=== PATIENT | male | born 1950 | race Caucasian/White ===

== ENCOUNTER 2016-11-01 15:28 | Inpatient (IN) | payer MEDICARE, MEDICAID ==
[2016-11-01] MEDS ORDERED: ACETAMINOPHEN 325 MG TABLET PO ONE (15:32)
--- NOTE | 2016-11-01 15:34 | ER Document Report ---
ED General - General Stated Complaint: ALTERED MENTAL STATUS Mode of Arrival: Ambulatory Information source: Patient Notes: 56-year-old male found walking around altered by EMS. Patient was noted to have fallen at some point. Does note to be febrile confused TRAVEL OUTSIDE OF THE [place] IN LAST 30 DAYS: No - HPI Onset: Just prior to arrival Onset/Duration: Sudden Quality of pain: Achy Severity: Mild Pain Level: 1 Associated symptoms: Body/muscle aches, Fever Exacerbated by: Denies Relieved by: Denies Similar symptoms previously: No Recently seen / treated by doctor: No - Related Data Allergies/Adverse Reactions: No Known Allergies Allergy (Verified 03/18/15 10:06) Home Medications: Current Home Medications Benztropine Mesylate [Cogentin 1 mg Tablet] 1 mg PO QHS 11/01/16 [History] Lisinopril [Zestril] 10 mg PO Q12 11/01/16 [History] Metoprolol Tartrate [Lopressor 25 mg Tablet] 25 mg PO Q12 11/01/16 [History] Mirtazapine [Remeron] 45 mg PO QHS 11/01/16 [History] Olanzapine [Zyprexa] 20 mg PO QHS 11/01/16 [History] Past Medical History - Social History Smoking Status: Current Every Day Smoker Cigarette use (# per day): Yes Chew tobacco use (# tins/day): No Smoking Education Provided: No Family History: Reviewed & Not Pertinent Musculoskeltal Medical History: Reports Hx Arthritis Psychiatric Medical History: Reports: Hx Depression, Hx Schizophrenia - Paranoid schizophrenia Past Surgical History: Reports: Hx Appendectomy, Hx Cholecystectomy - Immunizations Hx Diphtheria, Pertussis, Tetanus Vaccination: No Hx Pneumococcal Vaccination: 06/08/11 Review of Systems - Review of Systems Notes: PHYSICAL EXAMINATION: GENERAL: Febrile altered HEAD: Atraumatic, normocephalic. EYES: Pupils equal round and reactive to light, extraocular movements intact, sclera anicteric, conjunctiva are normal. ENT: Nares patent, oropharynx clear without exudates. Moist mucous membranes. NECK: Normal range of motion, supple without lymphadenopathy LUNGS: Breath sounds clear to auscultation bilaterally and equal. No wheezes rales or rhonchi. HEART: Regular rate and rhythm without murmurs ABDOMEN: Soft, nontender, nondistended abdomen. No guarding, no rebound. No masses appreciated. Musculoskeletal: Normal range of motion, no pitting or edema. No cyanosis. NEUROLOGICAL: GCS 15 but not respond to questions appropriate SKIN: Abrasion above the left eyebrow abrasion to the nasal bridge -: Yes ROS unobtainable due to patient's medical condition Physical Exam - Vital signs Vitals: Temp 100.3 F 11/01/16 15:42 Course - Re-evaluation Re-evalutation: 11/01/16 16:29 Patient noted to have nasal fracture elevated lactic acid 11.8 antibiotics started prophylactically 11/01/16 17:27 pt given 5 L and still not producing urine 11/01/16 19:47 LP result pending, I spoke with Dr. Serna who will admit the patient, he is concerned about neuroleptic malignant syndrome, patient does not appear to be stiff his fever has since resolved, will admit to IMCU for very close monitoring , we considered dantrolene for NMS but Dr Serna wishes to defer at this time 11/01/16 20:14 - Vital Signs Vital signs: Temp Pulse Resp BP Pulse Ox 97.8 F 23 H 134/68 H 98 11/01/16 18:05 11/01/16 20:01 11/01/16 20:00 11/01/16 20:01 - Laboratory Result Diagrams: 11/01/16 15:43 11/01/16 15:43 Laboratory results interpreted by me: 11/01/16 11/01/16 11/01/16 15:43 15:43 15:43 RBC 4.29 L Hgb 12.4 L Hct 37.7 L Basophils % 2.5 H PT 15.6 H VBG pCO2 VBG HCO3 Sodium 146.7 H Chloride 111 H Carbon Dioxide 12 L Anion Gap 24 H Creatinine 1.76 H Est GFR ( Amer) 47 L Est GFR (Non-Af Amer) 39 L Glucose 128 H Lactic Acid ALT 20 L Urine Protein Urine Ketones Urine Blood CSF Total Protein 11/01/16 11/01/16 11/01/16 15:43 16:32 17:51 RBC Hgb Hct Basophils % PT VBG pCO2 32.5 L VBG HCO3 16.4 L Sodium Chloride Carbon Dioxide Anion Gap Creatinine Est GFR ( Amer) Est GFR (Non-Af Amer) Glucose Lactic Acid 11.8 H ALT Urine Protein 30 H Urine Ketones TRACE H Urine Blood MODERATE H CSF Total Protein 11/01/16 18:57 RBC Hgb Hct Basophils % PT VBG pCO2 VBG HCO3 Sodium Chloride Carbon Dioxide Anion Gap Creatinine Est GFR ( Amer) Est GFR (Non-Af Amer) Glucose Lactic Acid ALT Urine Protein Urine Ketones Urine Blood CSF Total Protein 68 H - Diagnostic Test Radiology reviewed: Image reviewed, Reports reviewed - EKG Interpretation by Me EKG shows normal: Sinus rhythm, [place], Intervals, QRS Complexes Procedures - Lumbar Puncture Lumbar puncture Time completed: 18:40 Consent obtained: No - emergent altered febrile Lumbar puncture pre-procedure: Sterile PPE donned, Betadine prep applied, Sterile drapes applied Patient position: Lying Needle size: 18 Lumbar puncture location: L4-L5 Anesthetic type: 1% Lidocaine mL's of anesthetic: 5 Amount/type of drainage: 5 Number of attempts: 1 Complications: No Discharge - Discharge Clinical Impression: Lactic acidosis, Encephalopathy Nasal fracture Qualifiers: Encounter type: initial encounter Fracture type: closed Qualified Code(s): S02.2XXA - Fracture of nasal bones, initial encounter for closed fracture Fever Qualifiers: Fever type: unspecified Qualified Code(s): R50.9 - Fever, unspecified Mental status change Qualifiers: Altered mental status type: transient alteration of awareness Qualified Code(s) : R40.4 - Transient alteration of awareness Condition: Fair Disposition: ADMITTED INPATIENT Admitting Provider: Daphne Unit Admitted: [facility]
[2016-11-01] MEDS: NORMAL SALINE 1000 ML 1,000 ML IV PRN ×5 (15:50→18:08)
[2016-11-01 15:55] LABS: ABSOLUTE BASOPHILS # (AUTO) 0.2 10^3/uL (0.0-0.2); ABSOLUTE EOSINOPHILS # (AUTO) 0.1 10^3/uL (0.0-0.6); ABSOLUTE LYMPHOCYTES (AUTO) 1.5 10^3/uL (0.5-4.7); ABSOLUTE MONOCYTES (AUTO) 0.4 10^3/uL (0.1-1.4); BASOPHILS % (AUTO) 2.5 % (0-2); EOSINOPHILS % (AUTO) 2.2 % (0-6); HEMATOCRIT 37.7 % (37.9-51.0); HEMOGLOBIN 12.4 g/dL (13.5-17.0); HGB HCT DIFFERENCE -0.5; LYMPHOCYTES % (AUTO) 24.6 % (13-45); MEAN CORPUSCULAR HEMOGLOBIN 28.9 pg (27.0-33.4); MEAN CORPUSCULAR HGB CONC 32.9 g/dL (32.0-36.0); MEAN CORPUSCULAR VOLUME 88 fl (80-97); MONOCYTES % (AUTO) 6.1 % (3-13); RED BLOOD COUNT 4.29 10^6/uL (4.35-5.55); RED CELL DISTRIBUTION WIDTH 13.5 % (11.5-14.0); SEGMENTED NEUTROPHILS % (AUTO) 64.6 % (42-78); WHITE BLOOD COUNT 6.3 10^3/uL (4.0-10.5)
--- NOTE | 2016-11-01 15:57 | RADIOLOGY REPORT (SQ) ---
EXAM DESCRIPTION: CHEST SINGLE VIEW COMPLETED DATE/TIME: 11/01/2016 3:45 pm REASON FOR STUDY: bed 9 sepsis protocol COMPARISON: 06/04/2015 EXAM PARAMETERS: NUMBER OF VIEWS: One view. TECHNIQUE: Single frontal radiographic view of the chest acquired. RADIATION DOSE: NA LIMITATIONS: None. FINDINGS: LUNGS AND PLEURA: No opacities, masses or pneumothorax. No pleural effusion. There is hyp erexpansion. MEDIASTINUM AND HILAR STRUCTURES: No masses. Contour normal. HEART AND VASCULAR STRUCTURES: Heart normal in size. Normal vasculature. BONES: No acute findings. HARDWARE: None in the chest. OTHER: No other significant finding. IMPRESSION: Hyperexpansion. No other significant findings. TECHNICAL DOCUMENTATION: JOB ID: [id number]
[2016-11-01 16:07] LABS: PROTHROMBIN TIME 15.6 SEC (11.4-15.4)
[2016-11-01 16:16] LABS: ALANINE AMINOTRANSFERASE 20 U/L (21-72); ALBUMIN 4.3 g/dL (3.5-5.0); ALKALINE PHOSPHATASE 65 U/L (38-126); ASPARTATE AMINO TRANSFERASE 33 U/L (17-59); BILIRUBIN,DIRECT 0.4 mg/dL (0.0-0.4); BILIRUBIN,TOTAL 0.8 mg/dL (0.2-1.3); BLOOD UREA NITROGEN 20 mg/dL (7-20); CALCIUM 9.4 mg/dL (8.4-10.2); CHLORIDE 111 mmol/L (98-107); CREATININE RESULT 1.76 mg/dL (0.52-1.25); GLUCOSE 128 mg/dL (75-110); POTASSIUM 3.8 mmol/L (3.6-5.0); TOTAL PROTEIN 7.6 g/dL (6.3-8.2)
[2016-11-01] MEDS ORDERED: NORMAL SALINE 1000 ML 1,000 ML IV PRN (16:19)
[2016-11-01] MEDS ORDERED: CEFTRIAXONE 1 GM/D5W RTU 50 ML IV ONE (16:19)
--- NOTE | 2016-11-01 16:19 | RADIOLOGY REPORT (SQ) ---
EXAM DESCRIPTION: CT HEAD WITHOUT COMPLETED DATE/TIME: 11/01/2016 4:09 pm REASON FOR STUDY: head injury COMPARISON: 06/04/2015 TECHNIQUE: Axial images acquired through the brain without intravenous contrast. Images reviewed wi th bone, brain and subdural windows. Images stored on PACS. All CT scanners at this facility use dose modulation, iterative reconstruction, and/or weight based d osing when appropriate to reduce radiation dose to as low as reasonably achievable (ALARA). [facility]: Dose Right [facility]: CareDose [facility]: Dose Right [facility]: Teradose 4D [facility]: Smart [facility] RADIATION DOSE: Up-to-date CT equipment and radiation dose reduction techniques were employed. CTDIv ol: 64.6 mGy. DLP: 1034 mGy-cm. mGy. LIMITATIONS: None. FINDINGS: VENTRICLES: Normal size and contour. CEREBRUM: No masses. No hemorrhage. No midline shift. Normal aguilera/white matter differentiation. N o evidence for acute infarction. CEREBELLUM: No masses. No hemorrhage. No alteration of density. No evidence for acute infarction. EXTRAAXIAL SPACES: No fluid collections. No masses. ORBITS AND GLOBE: No intra- or extraconal masses. Normal contour of globe without masses. CALVARIUM: No fracture. PARANASAL SINUSES: No fluid or mucosal thickening. SOFT TISSUES: No mass or hematoma. OTHER: No other significant finding. IMPRESSION: NORMAL BRAIN CT WITHOUT CONTRAST. TECHNICAL DOCUMENTATION: JOB ID: [id number] Quality ID # [id number]: Final reports with documentation of one or more dose reduction techniques (e.g., Au tomated exposure control, adjustment of the mA and/or kV according to patient size, use of iterative reconstruction technique) 2010 [employer]- All Rights Reserved
--- NOTE | 2016-11-01 16:20 | RADIOLOGY REPORT (SQ) ---
EXAM DESCRIPTION: CT CERVICAL SPINE WITHOUT COMPLETED DATE/TIME: 11/01/2016 4:09 pm REASON FOR STUDY: altered COMPARISON: None. TECHNIQUE: Axial images acquired through the cervical spine without intravenous contrast. Images re viewed with lung, soft tissue and bone windows. Reconstructed coronal and sagittal MPR images review ed. Images stored on PACS. All CT scanners at this facility use dose modulation, iterative reconstruction, and/or weight based d osing when appropriate to reduce radiation dose to as low as reasonably achievable (ALARA). [facility]: Dose Right [facility]: CareDose [facility]: Dose Right [facility]: Teradose 4D [facility]: [employer] RADIATION DOSE: Up-to-date CT equipment and radiation dose reduction techniques were employed. CTDIv ol: 18.2 mGy. DLP: 425 mGy-cm. mGy. LIMITATIONS: None. FINDINGS: ALIGNMENT: Anatomic. MINERALIZATION: Normal. VERTEBRAL BODIES: No fractures or dislocation. DISCS: Multilevel disc space narrowing with osteophytes. FACETS, LATERAL MASSES, POSTERIOR ELEMENTS: Facet arthropathy. No fractures. No dislocation. No ac [place] findings. HARDWARE: None in the spine. VISUALIZED RIBS: No fractures. LUNG APICES AND SOFT TISSUES: No significant or acute findings. OTHER: No other significant finding. IMPRESSION: CHRONIC DEGENERATIVE CHANGES. NO ACUTE FINDINGS. TECHNICAL DOCUMENTATION: JOB ID: [id number] Quality ID # [id number]: Final reports with documentation of one or more dose reduction techniques (e.g., Au tomated exposure control, adjustment of the mA and/or kV according to patient size, use of iterative reconstruction technique) 2010 [employer]- All Rights Reserved
--- NOTE | 2016-11-01 16:22 | RADIOLOGY REPORT (SQ) ---
EXAM DESCRIPTION: CT CHEST WITHOUT COMPLETED DATE/TIME: 11/01/2016 4:12 pm REASON FOR STUDY: altered COMPARISON: None. TECHNIQUE: CT scan performed of the chest without intravenous contrast. Images reviewed with lung, soft tissue and bone windows. Reconstructed coronal and sagittal MPR images reviewed. All images st ored on PACS. All CT scanners at this facility use dose modulation, iterative reconstruction, and/or weight based d osing when appropriate to reduce radiation dose to as low as reasonably achievable (ALARA). [facility]: Dose Right [facility]: CareDose [facility]: Dose Right [facility]: Teradose 4D [facility]: Smart [employer] RADIATION DOSE: mGy. LIMITATIONS: No technical limitations. FINDINGS: LUNGS AND PLEURA: Patchy bilateral basilar airspace disease is consistent with atelectasis . No pleural effusions. No pneumothorax. HILAR AND MEDIASTINAL STRUCTURES: There are small AP window lymph nodes. These are nonspecific. The largest measures 1.6 cm in diameter. HEART AND VASCULAR STRUCTURES: No aneurysm. No pericardial effusion. UPPER ABDOMEN: No significant findings. Limited exam. THYROID AND OTHER SOFT TISSUES: No masses. No adenopathy. BONES: No significant finding. HARDWARE: None in the chest. OTHER: No other significant findings. IMPRESSION: Small AP window lymph nodes are present these are nonspecific. No other acute findings in the chest. TECHNICAL DOCUMENTATION: JOB ID: [id number] Quality ID # [id number]: Final reports with documentation of one or more dose reduction techniques (e.g., Au tomated exposure control, adjustment of the mA and/or kV according to patient size, use of iterative reconstruction technique) 2010 [employer]- All Rights Reserved
--- NOTE | 2016-11-01 16:22 | RADIOLOGY REPORT (SQ) ---
EXAM DESCRIPTION: CT FACIAL AREA WITHOUT COMPLETED DATE/TIME: 11/01/2016 4:09 pm REASON FOR STUDY: head injury COMPARISON: None. TECHNIQUE: Noncontrasted images through the facial bones and orbits windowed for bone and soft tissu e. Additional coronal and sagittal reconstructed images reviewed. All images stored on PACS. All CT scanners at this facility use dose modulation, iterative reconstruction, and/or weight based d osing when appropriate to reduce radiation dose to as low as reasonably achievable (ALARA). [facility]: Dose Right [facility]: CareDose [facility]: Dose Right [facility]: Teradose 4D [facility]: [employer] RADIATION DOSE: Up-to-date CT equipment and radiation dose reduction techniques were employed. CTDIv ol: 30.4 mGy. DLP: 540 mGy-cm. mGy. LIMITATIONS: None. FINDINGS: FACIAL BONES: Fracture of the nasal bone with mild angulation to the right. Remainder of the facial bones are intact. ORBITS: Intact. No fracture. Symmetric intact globes and retroorbital soft tissues. PARANASAL SINUSES: Clear. Mild mucous membrane thickening in the right frontal and ethmoid sinuses. Mild nodularity in the left maxillary sinus. Mild nasal septal deviation to the right with spurring on the right side. SOFT TISSUES: No mass or edema. INFERIOR BRAIN: Limited view. No acute findings. OTHER: No other significant finding. IMPRESSION: FRACTURE OF THE NASAL BONE WITH MILD ANGULATION TO THE RIGHT. NO OTHER ACUTE TRAUMATIC FINDINGS. TECHNICAL DOCUMENTATION: JOB ID: [id number] Quality ID # [id number]: Final reports with documentation of one or more dose reduction techniques (e.g., Au tomated exposure control, adjustment of the mA and/or kV according to patient size, use of iterative reconstruction technique) 2010 [employer]- All Rights Reserved
[2016-11-01 16:23] LABS: CARBON DIOXIDE 12 mmol/L (22-30); SODIUM 146.7 mmol/L (137-145)
--- NOTE | 2016-11-01 16:23 | RADIOLOGY REPORT (SQ) ---
EXAM DESCRIPTION: CT ABD/PELVIS NO ORAL OR IV COMPLETED DATE/TIME: 11/01/2016 4:12 pm REASON FOR STUDY: altered COMPARISON: None. TECHNIQUE: CT scan of the abdomen and pelvis performed without intravenous or oral contrast. Images reviewed with lung, soft tissue, and bone windows. Reconstructed coronal and sagittal MPR images revi ewed. All images stored on PACS. All CT scanners at this facility use dose modulation, iterative reconstruction, and/or weight based d osing when appropriate to reduce radiation dose to as low as reasonably achievable (ALARA). [facility]: Dose Right [facility]: CareDose [facility]: Dose Right [facility]: Teradose 4D [facility]: Smart [employer] RADIATION DOSE: Up-to-date CT equipment and radiation dose reduction techniques were employed. CTDIv ol: 6.9 mGy. DLP: 530 mGy-cm.mGy. LIMITATIONS: None. FINDINGS: LOWER CHEST: No significant findings. No nodules or infiltrates. NON-CONTRASTED LIVER, SPLEEN, ADRENALS: Evaluation limited by lack of IV contrast. No identified sign ificant masses. PANCREAS: The pancreas is atrophic. GALLBLADDER: No identified stones by CT criteria. No inflammatory changes to suggest cholecystitis. RIGHT KIDNEY AND URETER: No suspicious masses. Assessment limited by lack of IV contrast. No signif icant calcifications. No hydronephrosis or hydroureter. LEFT KIDNEY AND URETER: No suspicious masses. Assessment limited by lack of IV contrast. No signifi cant calcifications. No hydronephrosis or hydroureter. AORTA AND RETROPERITONEUM: No aneurysm. No retroperitoneal masses or adenopathy. BOWEL AND PERITONEAL CAVITY: No obvious masses or inflammatory changes. No free fluid. APPENDIX: Not visualized. PELVIS, BLADDER, AND ABDOMINAL WALL:No abnormal masses. No free fluid. Bladder normal. BONES: No significant findings. OTHER: No other significant finding. IMPRESSION: NO SIGNIFICANT OR ACUTE PROCESS IN THE ABDOMEN OR PELVIS. TECHNICAL DOCUMENTATION: JOB ID: [id number] Quality ID # [id number]: Final reports with documentation of one or more dose reduction techniques (e.g., Au tomated exposure control, adjustment of the mA and/or kV according to patient size, use of iterative reconstruction technique) 2010 [employer]- All Rights Reserved
[2016-11-01 16:27] LABS: ANION GAP 24 (5-19)
[2016-11-01 16:50] LABS: VENOUS BLOOD BASE EXCESS -8.6 mmol/L; VENOUS BLOOD HCO3 16.4 mmol/L (20-32); VENOUS BLOOD PCO2 32.5 mmHg (35-63); VENOUS BLOOD PH 7.32 (7.30-7.42)
[2016-11-01 18:11] LABS: APPEARANCE,URINE SLIGHTLY-CLOUDY; BILIRUBIN,URINE NEGATIVE (NEGATIVE); GLUCOSE, URINE NEGATIVE (NEGATIVE); KETONES,URINE TRACE mg/dL (NEGATIVE); LEUKOCYTE ESTERASE,URINE NEGATIVE (NEGATIVE); NITRITE,URINE NEGATIVE (NEGATIVE); PROTEIN,URINE 30 mg/dL (NEGATIVE); URINE SPECIFIC GRAVITY 1.012; UROBILINOGEN,URINE NEGATIVE mg/dL (<2.0)
[2016-11-01] MEDS ORDERED: LIDOCAINE 1% INJ-PF (10 MG/ML) 30 ML SDV INJ ONE (18:18)
[2016-11-01] MEDS ORDERED: VANCOMYCIN HCL INJ 1000 MG VIAL IV ONE (18:21)
--- NOTE | 2016-11-01 19:13 | EKG REPORT ---
SEVERITY:- ABNORMAL ECG - SINUS OR ECTOPIC ATRIAL RHYTHM INCOMPLETE LEFT BUNDLE BRANCH BLOCK : Confirmed by: Matthias Alas MD 01-Nov-2016 19:13:24
[2016-11-01 19:37] LABS: GLUCOSE,CSF 64 mg/dL (40-70)
[2016-11-01 19:50] LABS: APPEARANCE ALL TUBES CLEAR; RBC AVERAGE 0.5; RBC DILUENT USED NONE USED; RBC DILUTION FACTOR 1; RBC SIDE 1 0; RBC SIDE 2 1; TOTAL RBC SQUARES COUNTED 225
[2016-11-01 19:51] LABS: WHITE BLOOD CELL,CSF 1 /uL (0-5)
[2016-11-01 19:54] LABS: APPEARANCE ALL TUBES CLEAR; RBC AVERAGE 0.5; RBC DILUENT USED NONE USED; RBC DILUTION FACTOR 1; RBC SIDE 1 0; RBC SIDE 2 1; TOTAL RBC SQUARES COUNTED 225
[2016-11-01 19:55] LABS: WHITE BLOOD CELL,CSF 1 /uL (0-5)
[2016-11-01] MEDS ORDERED: ACETAMINOPHEN 325 MG TABLET PO PRN (23:36)
[2016-11-01] MEDS ORDERED: DOCUSATE SODIUM 100 MG CAPSULE PO PRN (23:37)
[2016-11-02] MEDS ORDERED: LORAZEPAM INJ 2 MG/1 ML VIAL IV ONE ×2 (03:53→04:06)
[2016-11-02] MEDS ORDERED: DIPHENHYDRAMINE HCL 50 MG/ML VIAL IM ONE (04:32)
[2016-11-02] MEDS ORDERED: HALOPERIDOL LACTATE INJ 5 MG/1 ML VIAL IM ONE (04:32)
[2016-11-02] MEDS ORDERED: HALOPERIDOL LACTATE INJ 5 MG/1 ML VIAL IV ONE (04:38)
[2016-11-02] MEDS ORDERED: DIPHENHYDRAMINE HCL 50 MG/ML VIAL IV ONE (04:39)
[2016-11-02 08:09] LABS: HEMATOCRIT 39.1 % (37.9-51.0); HEMOGLOBIN 12.8 g/dL (13.5-17.0); HGB HCT DIFFERENCE -0.7; MEAN CORPUSCULAR HEMOGLOBIN 29.1 pg (27.0-33.4); MEAN CORPUSCULAR HGB CONC 32.6 g/dL (32.0-36.0); MEAN CORPUSCULAR VOLUME 89 fl (80-97); RED BLOOD COUNT 4.39 10^6/uL (4.35-5.55); RED CELL DISTRIBUTION WIDTH 13.7 % (11.5-14.0); WHITE BLOOD COUNT 10.6 10^3/uL (4.0-10.5)
[2016-11-02 08:25] LABS: ALANINE AMINOTRANSFERASE 72 U/L (21-72); ALBUMIN 3.7 g/dL (3.5-5.0); ALKALINE PHOSPHATASE 64 U/L (38-126); ANION GAP 15 (5-19); ASPARTATE AMINO TRANSFERASE 187 U/L (17-59); BILIRUBIN,DIRECT 0.4 mg/dL (0.0-0.4); BLOOD UREA NITROGEN 12 mg/dL (7-20); CALCIUM 8.8 mg/dL (8.4-10.2); CARBON DIOXIDE 16 mmol/L (22-30); CHLORIDE 114 mmol/L (98-107); CREATININE RESULT 1.12 mg/dL (0.52-1.25); GLUCOSE 101 mg/dL (75-110); POTASSIUM 3.8 mmol/L (3.6-5.0); TOTAL PROTEIN 6.6 g/dL (6.3-8.2)
[2016-11-02] MEDS: NORMAL SALINE 1000 ML 1,000 ML IV PRN ×2 (08:40→23:58)
[2016-11-02 09:14] LABS: CREATINE KINASE 10464 U/L (55-170)
[2016-11-02] MEDS: LANSOPRAZOLE 30 MG TAB.RAP.DR PO SCH (09:24)
[2016-11-02] MEDS: ENOXAPARIN SODIUM INJ 30 MG/0.3 ML DISP.SYRIN SUBCUT SCH (09:24)
--- NOTE | 2016-11-02 17:34 | PDOC H&P ---
History of Present Illness Admission Date/PCP: 11/02/16 07:24 CHAD MENDOZA Patient complains of: Pt was picked by EMS in the street as per ER physician as a case of AMS. History of Present Illness: JADA SANCHEZ is a 66 year old male with hx of HTN/Hyperlipidemia/Schizophrenia/ CAD s.p NSTEMI/Vitamin D def/Constipation/Depression, who was picked up wandering in the street as per ER physician for altered mental status and fever. At ER his temperature was 100.3 and had a lactate of 11.8 that decreased to 1.0 within a couple of hours after IV fluids. He has no muscle stiffness or seizures or tremors or headache or nausea/vomiting. Past Medical History Musculoskeltal Medical History: Reports: Arthritis Psychiatric Medical History: Reports: Depression Past Surgical History Past Surgical History: Reports: Appendectomy, Cholecystectomy Social History Smoking Status: Former Smoker Frequency of Alcohol Use: None Hx Recreational Drug Use: Yes Drugs: None Hx Prescription Drug Abuse: No Family History Family History: Reviewed & Not Pertinent Parental Family History Reviewed: Yes Children Family History Reviewed: Yes Sibling(s) Family History Reviewed.: Yes Medication/Allergy Home Medications: Benztropine Mesylate [Cogentin 1 mg Tablet] 1 mg PO QHS 11/01/16 Lisinopril [Zestril] 10 mg PO Q12 11/01/16 Metoprolol Tartrate [Lopressor 25 mg Tablet] 25 mg PO Q12 11/01/16 Mirtazapine [Remeron] 45 mg PO QHS 11/01/16 Olanzapine [Zyprexa] 20 mg PO QHS 11/01/16 Allergies/Adverse Reactions: No Known Allergies Allergy (Verified 03/18/15 10:06) Review of Systems All systems: as per PMH Constitutional: PRESENT: as per HPI Ears: PRESENT: as per HPI Nose, Mouth, and Throat: PRESENT: as per HPI Cardiovascular: PRESENT: as per HPI Respiratory: PRESENT: as per HPI Gastrointestinal: PRESENT: as per HPI Genitourinary: PRESENT: as per HPI Musculoskeletal: PRESENT: as per HPI Integumentary: PRESENT: as per HPI Neurological: PRESENT: as per HPI Psychiatric: PRESENT: as per HPI Endocrine: PRESENT: as per HPI Hematologic/Lymphatic: PRESENT: as per HPI Allergic/Immunologic: PRESENT: as per HPI Physical Exam Vital Signs: Temp Pulse Resp BP Pulse Ox 98.2 F 78 16 153/78 H 99 11/02/16 15:46 11/02/16 15:46 11/02/16 15:46 11/02/16 15:46 11/02/16 15:46 Intake & Output 11/01/16 11/02/16 11/03/16 06:59 06:59 06:59 Intake Total 595 Output Total 500 Balance 95 General appearance: PRESENT: no acute distress, hard of hearing, well-developed , well-nourished Head exam: PRESENT: atraumatic, normocephalic Eye exam: PRESENT: EOMI, PERRLA Ear exam: PRESENT: TM's normal bilaterally Mouth exam: PRESENT: neck supple, tongue midline Neck exam: PRESENT: full ROM Respiratory exam: PRESENT: clear to auscultation esme, symmetrical Cardiovascular exam: PRESENT: +S1, +S2 Pulses: PRESENT: +2 pedal pulses bilateral GI/Abdominal exam: PRESENT: normal bowel sounds, soft Rectal exam: PRESENT: deferred Extremities exam: PRESENT: full ROM Musculoskeletal exam: PRESENT: full ROM Neurological exam: PRESENT: alert, awake, oriented to person Psychiatric exam: PRESENT: anxious Results Laboratory Results: 11/02/16 07:53 11/02/16 07:53 11/02/16 11/02/16 11/02/16 07:53 07:53 07:53 WBC 10.6 H RBC 4.39 Hgb 12.8 L Hct 39.1 MCV 89 MCH 29.1 MCHC 32.6 RDW 13.7 Plt Count 207 Sodium 145.0 Potassium 3.8 Chloride 114 H Carbon Dioxide 16 L Anion Gap 15 BUN 12 Creatinine 1.12 Est GFR ( Amer) > 60 Est GFR (Non-Af Amer) > 60 Glucose 101 Calcium 8.8 Total Bilirubin 1.0 AST 187 H ALT 72 Alkaline Phosphatase 64 Total Protein 6.6 Albumin 3.7 TSH 1.35 11/02/16 07:53 Creatine Kinase 80608 H Impressions: Chest X-Ray 11/01/16 15:32 IMPRESSION: Hyperexpansion. No other significant findings. Abdomen/Pelvis CT 11/01/16 15:33 IMPRESSION: NO SIGNIFICANT OR ACUTE PROCESS IN THE ABDOMEN OR PELVIS. Cervical Spine CT 11/01/16 15:33 IMPRESSION: CHRONIC DEGENERATIVE CHANGES. NO ACUTE FINDINGS. Chest CT 11/01/16 15:33 IMPRESSION: Small AP window lymph nodes are present these are nonspecific. No other acute findings in the chest. Facial Bones CT 11/01/16 15:33 IMPRESSION: FRACTURE OF THE NASAL BONE WITH MILD ANGULATION TO THE RIGHT. NO OTHER ACUTE TRAUMATIC FINDINGS. Head CT 11/01/16 15:33 IMPRESSION: NORMAL BRAIN CT WITHOUT CONTRAST. Assessment & Plan - Diagnosis (1) Rhabdomyolysis Qualifiers: Rhabdomyolysis type: non-traumatic Qualified Code(s): M62.82 - Rhabdomyolysis Is this a current diagnosis for this admission?: YesPlan: Ct with IV fluids normal saline at 75 cc/hr; Monitor CK daily and monitor chemistries daily. Strict input/output chart. (2) Acute kidney injury Is this a current diagnosis for this admission?: YesPlan: Ct with IV fluids normal saline at 75 cc/hr; avoid nephrotoxics; daily weight; strict input/out put chart; monitor chemistries daily. (3) Hypertension Is this a current diagnosis for this admission?: YesPlan: Ct with metoprolol 25 mg BID po; hold Lisinopril 10 mg BID for now. 2 g sodium diet. (4) Hyperlipidemia Is this a current diagnosis for this admission?: YesPlan: Hold Atorvastatin 20 mg qhs for now due to rhabdomyolysis; Ct with 200 mg cholesterol diet. (5) NSTEMI (non-ST elevated myocardial infarction) Is this a current diagnosis for this admission?: YesPlan: Ct with Aspirin 81 mg qd po. (6) Paranoid schizophrenia Is this a current diagnosis for this admission?: YesPlan: Ct with Zyprexa 20 mg qd po; Cogentin 1 mg BID po. (7) Depression Qualifiers: Depression Type: major depressive disorder Is this a current diagnosis for this admission?: YesPlan: Ct with Remeron 30 mg qhs po (8) Constipation Qualifiers: Constipation type: slow transit constipation Qualified Code(s): K59.01 - Slow transit constipation Is this a current diagnosis for this admission?: YesPlan: Ct with Colace 100 mg qd prn po (9) DVT prophylaxis Is this a current diagnosis for this admission?: YesPlan: Ct with Lovenox 40mg qd subcut; SCD - Time Time Spent: 30 to 50 Minutes Smoking Cessation Education: 3 to 10 minutes Medications reviewed and adjusted accordingly: Yes Anticipated discharge: Home Within: within 72 hours - Inpatient Certification Medical Necessity: Significant Comorbidiites Make Outpatient Treatment Too Risky , Need Close Monitoring Due to Risk of Patient Decompensation, Need For IV Fluids, Need For Continuous Telemetry Monitoring, Need for Neurological Checks
[2016-11-02] MEDS ORDERED: LORAZEPAM 0.5 MG TABLET PO PRN (17:35)
[2016-11-02] MEDS: METOPROLOL TARTRATE 25 MG TABLET PO SCH (21:04)
[2016-11-02] MEDS ORDERED: OLANZAPINE 5 MG TAB.RAPDIS PO SCH (22:00)
[2016-11-02] MEDS ORDERED: (PENDING PHARMACY ID) (Mirtazapine [Remeron] 45 MG) PO SCH (22:00)
[2016-11-02] MEDS ORDERED: MIRTAZAPINE 15 MG TABLET PO SCH (22:00)
[2016-11-02] MEDS ORDERED: BENZTROPINE MESYLATE 1 MG TABLET PO SCH (22:00)
[2016-11-03 05:29] LABS: ALANINE AMINOTRANSFERASE 79 U/L (21-72); ALBUMIN 2.8 g/dL (3.5-5.0); ALKALINE PHOSPHATASE 51 U/L (38-126); ANION GAP 10 (5-19); ASPARTATE AMINO TRANSFERASE 143 U/L (17-59); BILIRUBIN,DIRECT 0.3 mg/dL (0.0-0.4); BILIRUBIN,TOTAL 0.6 mg/dL (0.2-1.3); BLOOD UREA NITROGEN 6 mg/dL (7-20); CALCIUM 8.1 mg/dL (8.4-10.2); CARBON DIOXIDE 20 mmol/L (22-30); CHLORIDE 112 mmol/L (98-107); CHOLESTEROL 136.21 mg/dL (0-200); CREATININE RESULT 0.96 mg/dL (0.52-1.25); Direct HDL 27 mg/dL (>40); GLUCOSE 78 mg/dL (75-110); POTASSIUM 3.5 mmol/L (3.6-5.0); SODIUM 141.6 mmol/L (137-145); TOTAL PROTEIN 5.4 g/dL (6.3-8.2); TRIGLYCERIDES 73 mg/dL (<150)
[2016-11-03 05:41] LABS: DIRECT LDL 94 mg/dL (<100)
[2016-11-03 05:50] LABS: VLDL CHOLESTEROL 14.6 mg/dL (10-31)
[2016-11-03 06:00] LABS: CREATINE KINASE 4627 U/L (55-170)
[2016-11-03 06:55] LABS: ABSOLUTE BASOPHILS # (AUTO) 0.1 10^3/uL (0.0-0.2); ABSOLUTE EOSINOPHILS # (AUTO) 0.3 10^3/uL (0.0-0.6); ABSOLUTE MONOCYTES (AUTO) 0.5 10^3/uL (0.1-1.4); ABSOLUTE NEUT (AUTO) 4.2 10^3/uL (1.7-8.2); BASOPHILS % (AUTO) 1.4 % (0-2); HEMATOCRIT 32.9 % (37.9-51.0); HGB HCT DIFFERENCE 0.1; LYMPHOCYTES % (AUTO) 28.2 % (13-45); MEAN CORPUSCULAR HEMOGLOBIN 29.2 pg (27.0-33.4); MEAN CORPUSCULAR HGB CONC 33.5 g/dL (32.0-36.0); MEAN CORPUSCULAR VOLUME 87 fl (80-97); RED BLOOD COUNT 3.77 10^6/uL (4.35-5.55); RED CELL DISTRIBUTION WIDTH 13.8 % (11.5-14.0); SEGMENTED NEUTROPHILS % (AUTO) 59.4 % (42-78); WHITE BLOOD COUNT 7.2 10^3/uL (4.0-10.5)
[2016-11-03] MEDS ORDERED: POTASSIUM CHLORIDE 20 MEQ/15 ML UDCUP PO ONE (09:01)
[2016-11-03] MEDS: METOPROLOL TARTRATE 25 MG TABLET PO SCH (11:00)
[2016-11-03] MEDS: LANSOPRAZOLE 30 MG TAB.RAP.DR PO SCH (11:00)
[2016-11-03] MEDS: ENOXAPARIN SODIUM INJ 30 MG/0.3 ML DISP.SYRIN SUBCUT SCH (11:01)
--- NOTE | 2016-11-03 11:29 | PDOC DISCHARGE SUMMARY ---
General - Admit/Disc Date/PCP Admission Date/Primary Care Provider: 11/02/16 07:24 CHAD MENDOZA Discharge Date: 11/03/16 - Discharge Diagnosis (1) Rhabdomyolysis Is this a current diagnosis for this admission?: Yes (2) Acute kidney injury Is this a current diagnosis for this admission?: Yes (3) Hypertension Is this a current diagnosis for this admission?: Yes (4) Hyperlipidemia Is this a current diagnosis for this admission?: Yes (5) NSTEMI (non-ST elevated myocardial infarction) Is this a current diagnosis for this admission?: Yes (6) Paranoid schizophrenia Is this a current diagnosis for this admission?: Yes (7) Depression Is this a current diagnosis for this admission?: Yes (8) Constipation Is this a current diagnosis for this admission?: Yes (9) DVT prophylaxis Is this a current diagnosis for this admission?: Yes - Additional Information Discharge Activity: Activity As Tolerated Home Medications: Benztropine Mesylate [Cogentin 1 mg Tablet] 1 mg PO QHS 11/01/16 Lisinopril [Zestril] 10 mg PO Q12 11/01/16 Metoprolol Tartrate [Lopressor 25 mg Tablet] 25 mg PO Q12 11/01/16 Mirtazapine [Remeron] 45 mg PO QHS 11/01/16 Olanzapine [Zyprexa] 20 mg PO QHS 11/01/16 History of Present Illness History of Present Illness: JADA SANCHEZ is a 66 year old male with hx of HTN/Hyperlipidemia/Schizophrenia/ CAD s.p NSTEMI/Vitamin D def/Constipation/Depression, who was picked up wandering in the street as per ER physician for altered mental status and fever. At ER his temperature was 100.3 and had a lactate of 11.8 that decreased to 1.0 within a couple of hours after IV fluids. He has no muscle stiffness or seizures or tremors or headache or nausea/vomiting. Hospital Course Hospital Course: 66 yr old man admitted to [facility] for rhabdomyolysis and acute kidney injury. He had 5 litres bolus of normal saline and later IV fluids normal saline at 75 cc/ hr. He is well hydrated and his kidney function is back to normal and CK has decreased and he is stable and back to to his baseline. He and his step daughter ,Ms Melissa Godinez were counseled to ensure he drinks a lot of fluids.He will be discharged home today and follow up with his PCP in 1 week for transition of care. Physical Exam Vital Signs: Temp Pulse Resp BP Pulse Ox 98.5 F 64 16 154/81 H 96 11/03/16 07:19 11/03/16 07:19 11/03/16 07:19 11/03/16 07:19 11/03/16 07:19 Intake & Output 11/02/16 11/03/16 11/04/16 06:59 06:59 06:59 Intake Total 2835 Output Total 2300 Balance 535 Weight 71.8 kg General appearance: PRESENT: no acute distress, well-developed, well-nourished Head exam: PRESENT: atraumatic, normocephalic Eye exam: PRESENT: EOMI, PERRLA Ear exam: PRESENT: normal external ear exam, TM's normal bilaterally Mouth exam: PRESENT: moist, neck supple, tongue midline Neck exam: PRESENT: full ROM Respiratory exam: PRESENT: clear to auscultation esme, symmetrical Cardiovascular exam: PRESENT: +S1, +S2 Pulses: PRESENT: +2 pedal pulses bilateral GI/Abdominal exam: PRESENT: normal bowel sounds, soft Rectal exam: PRESENT: deferred Extremities exam: PRESENT: full ROM Musculoskeletal exam: PRESENT: full ROM Neurological exam: PRESENT: alert, oriented to person Psychiatric exam: PRESENT: normal mood Results Laboratory Results: 11/03/16 04:12 11/03/16 04:12 11/03/16 11/03/16 04:12 04:12 WBC 7.2 RBC 3.77 L Hgb 11.0 L Hct 32.9 L MCV 87 MCH 29.2 MCHC 33.5 RDW 13.8 Plt Count 176 Seg Neutrophils % 59.4 Lymphocytes % 28.2 Monocytes % 7.0 Eosinophils % 4.0 Basophils % 1.4 Absolute Neutrophils 4.2 Absolute Lymphocytes 2.0 Absolute Monocytes 0.5 Absolute Eosinophils 0.3 Absolute Basophils 0.1 Sodium 141.6 Potassium 3.5 L Chloride 112 H Carbon Dioxide 20 L Anion Gap 10 BUN 6 L Creatinine 0.96 Est GFR ( Amer) > 60 Est GFR (Non-Af Amer) > 60 Glucose 78 Calcium 8.1 L Total Bilirubin 0.6 AST 143 H ALT 79 H Alkaline Phosphatase 51 Total Protein 5.4 L Albumin 2.8 L Triglycerides 73 Cholesterol 136.21 LDL Cholesterol Direct 94 VLDL Cholesterol 14.6 HDL Cholesterol 27 L 11/02/16 11/03/16 07:53 04:12 Creatine Kinase 03235 H 4627 H Impressions: Chest X-Ray 11/01/16 15:32 IMPRESSION: Hyperexpansion. No other significant findings. Abdomen/Pelvis CT 11/01/16 15:33 IMPRESSION: NO SIGNIFICANT OR ACUTE PROCESS IN THE ABDOMEN OR PELVIS. Cervical Spine CT 11/01/16 15:33 IMPRESSION: CHRONIC DEGENERATIVE CHANGES. NO ACUTE FINDINGS. Chest CT 11/01/16 15:33 IMPRESSION: Small AP window lymph nodes are present these are nonspecific. No other acute findings in the chest. Facial Bones CT 11/01/16 15:33 IMPRESSION: FRACTURE OF THE NASAL BONE WITH MILD ANGULATION TO THE RIGHT. NO OTHER ACUTE TRAUMATIC FINDINGS. Head CT 11/01/16 15:33 IMPRESSION: NORMAL BRAIN CT WITHOUT CONTRAST.
[2016-11-03 11:47] VITALS: BP 142/62
== END 2016-11-03 12:10 | disposition home or self-care (01) | DRG 557 ==
LOC: ER 15:28 → UNDOADMIN 20:33 → EH 20:33 → 3N 11-02 06:53 → EH 11-02 06:53 → 3N 11-02 07:24
PROVIDERS: ADMIT Internal Medicine; ATTEND Internal Medicine
PROC: 009U3ZX Drainage of Spinal Canal, Percutaneous Approach, Diagnostic (ICD-10-PCS; principal; 2016-11-02)
DX: M62.82 Rhabdomyolysis (principal); G93.40 Encephalopathy, unspecified; N17.9 Acute kidney failure, unspecified; F20.0 Paranoid schizophrenia; E87.2 Acidosis; K95.01 Infection due to gastric band procedure; S00.81XA Abrasion of other part of head, initial encounter; S02.2XXA Fracture of nasal bones, initial encounter for closed fracture; I10 Essential (primary) hypertension; E78.5 Hyperlipidemia, unspecified; I25.10 Atherosclerotic heart disease of native coronary artery without angina pectoris; F32.9 Major depressive disorder, single episode, unspecified; R41.82 Altered mental status, unspecified; M19.90 Unspecified osteoarthritis, unspecified site; F17.210 Nicotine dependence, cigarettes, uncomplicated; W19.XXXA Unspecified fall, initial encounter; Y93.9 Activity, unspecified; Y92.9 Unspecified place or not applicable; I25.2 Old myocardial infarction; Z78.1 Physical restraint status
CPT/HCPCS: 36415; 70450; 70486; 71010; 71250; 72125; 74176; 80053; 80061; 81001; 82550; 82803; 82945; 82962; 83605; 84157; 84443; 85025; 85027; 85610; 87040; 87070; 87086; 87205; 89050; 93005; 93010; 96361; 96365; 96366; 96367; 99285; J0696; J1200; J1630; J1650; J2060; J3370; J3490; J7030

== ENCOUNTER 2018-04-16 18:24 | Emergency (ER) | payer MEDICARE, MEDICAID ==
--- NOTE | 2018-04-16 18:58 | ER Document Report ---
ED Medical Screen (RME) - General Chief Complaint: Altered Mental Status Stated Complaint: ALTERED MENTAL STATUS Time Seen by Provider: 04/16/18 18:47 TRAVEL OUTSIDE OF THE [place] IN LAST 30 DAYS: No - Related Data Allergies/Adverse Reactions: No Known Allergies Allergy (Verified 04/16/18 18:25) Past Medical History Renal/ Medical History: Denies: Hx Peritoneal Dialysis Musculoskeltal Medical History: Reports Hx Arthritis Psychiatric Medical History: Reports: Hx Depression, Hx Schizophrenia - Paranoid schizophrenia Past Surgical History: Reports: Hx Appendectomy, Hx Cholecystectomy - Immunizations Hx Diphtheria, Pertussis, Tetanus Vaccination: No Physical Exam - Vital signs Vitals: Temp Pulse Resp BP Pulse Ox 99.5 F 56 L 20 135/92 H 97 04/16/18 18:37 04/16/18 18:37 04/16/18 18:37 04/16/18 18:37 04/16/18 18:37 Course - Re-evaluation Re-evalutation: 67-year-old man with cognitive disease and paranoia who presents from home for worsening paranoid delusions. He had previously been followed by Dr. Rock who then retired making it difficult for them to obtain his normal medications. He has been receiving olanzapine 10 mg every morning and 20 mg every afternoon but is continued to have worsening altered mental status thereafter with what appears to be a paranoia related specifically to those he lives with believing that they have killed many many people are attempting to poison him and may be attempting to kill all of the Jehovah's Witnesses and place them into dumpsters in the back. He demonstrates diminished insight. Because of my concern for this gentleman's inability to understand things believe he would benefit from evaluation and possible disposition determination. I will plan for this patient undergo further investigation evaluation by secondary provider, the the appropriate diagnostics, disposition and workup will be deferred to that provider. I have performed a rapid screening examination and they will require further evaluation. - Vital Signs Vital signs: Temp Pulse Resp BP Pulse Ox 99.5 F 56 L 20 135/92 H 97 04/16/18 18:37 04/16/18 18:37 04/16/18 18:37 04/16/18 18:37 04/16/18 18:37 Doctor's Discharge - Discharge Referrals: CHAD MENDOZA MD [Primary Care Provider] - Follow up as needed
[2018-04-16 19:59] LABS: ABSOLUTE BASOPHILS # (AUTO) 0.1 10^3/uL (0.0-0.2); ABSOLUTE EOSINOPHILS # (AUTO) 0.2 10^3/uL (0.0-0.6); ABSOLUTE MONOCYTES (AUTO) 0.9 10^3/uL (0.1-1.4); BASOPHILS % (AUTO) 0.6 % (0-2); EOSINOPHILS % (AUTO) 1.8 % (0-6); HEMATOCRIT 44.7 % (37.9-51.0); HEMOGLOBIN 14.8 g/dL (13.5-17.0); LYMPHOCYTES % (AUTO) 16.4 % (13-45); MEAN CORPUSCULAR HEMOGLOBIN 29.5 pg (27.0-33.4); MEAN CORPUSCULAR HGB CONC 33.2 g/dL (32.0-36.0); MEAN CORPUSCULAR VOLUME 89 fl (80-97); MONOCYTES % (AUTO) 7.1 % (3-13); PLATELET COUNT 251 10^3/uL (150-450); RED BLOOD COUNT 5.03 10^6/uL (4.35-5.55); RED CELL DISTRIBUTION WIDTH 13.7 % (11.5-14.0); SEGMENTED NEUTROPHILS % (AUTO) 74.1 % (42-78); TOTAL CELLS COUNTED % (AUTO) 100 %; WHITE BLOOD COUNT 12.1 10^3/uL (4.0-10.5)
--- NOTE | 2018-04-16 20:03 | RADIOLOGY REPORT (SQ) ---
EXAM DESCRIPTION: CT HEAD WITHOUT COMPLETED DATE/TIME: 04/16/2018 7:54 pm REASON FOR STUDY: confusion worsening COMPARISON: 11/01/2016 TECHNIQUE: Axial images acquired through the brain without intravenous contrast. Images reviewed wi th bone, brain and subdural windows. Additional sagittal and coronal reconstructions were generated. Images stored on PACS. All CT scanners at this facility use dose modulation, iterative reconstruction, and/or weight based d osing when appropriate to reduce radiation dose to as low as reasonably achievable (ALARA). [facility]: Dose Right [facility]: CareDose [facility]: Dose Right [facility]: Teradose 4D [facility]: [employer] RADIATION DOSE: CT Rad equipment meets quality standard of care and radiation dose reduction techniq ues were employed. CTDIvol: 53.2 mGy. DLP: 964 mGy-cm. mGy. LIMITATIONS: None. FINDINGS: VENTRICLES: Normal size and contour. CEREBRUM: No masses. No hemorrhage. No midline shift. No evidence for acute infarction. Normal gra y/white matter differentiation. No areas of low density in the white matter. CEREBELLUM: No masses. No hemorrhage. No alteration of density. No evidence for acute infarction. EXTRAAXIAL SPACES: No fluid collections. No masses. ORBITS AND GLOBE: No intra- or extraconal masses. Normal contour of globe without masses. CALVARIUM: No fracture. PARANASAL SINUSES: No fluid or mucosal thickening. SOFT TISSUES: No mass or hematoma. OTHER: No other significant finding. IMPRESSION: NORMAL BRAIN CT WITHOUT CONTRAST. EVIDENCE OF ACUTE STROKE: NO. COMMENT: Quality ID # 436: Final reports with documentation of one or more dose reduction techniques (e.g., Automated exposure control, adjustment of the mA and/or kV according to patient size, use of iterative reconstruction technique) TECHNICAL DOCUMENTATION: JOB ID: [id number] [employer]- All Rights Reserved Reading location - IP/workstation name: [email or web address]
[2018-04-16 20:13] LABS: ACETAMINOPHEN < 10 ug/mL (10-30); ALANINE AMINOTRANSFERASE 16 U/L (21-72); ALBUMIN 4.5 g/dL (3.5-5.0); ALCOHOL < 10 mg/dL (NONE DETECTED); ALKALINE PHOSPHATASE 72 U/L (38-126); ANION GAP 10 (5-19); ASPARTATE AMINO TRANSFERASE 30 U/L (17-59); BILIRUBIN,DIRECT 0.2 mg/dL (0.0-0.4); BILIRUBIN,TOTAL 0.7 mg/dL (0.2-1.3); BLOOD UREA NITROGEN 21 mg/dL (7-20); CALCIUM 9.2 mg/dL (8.4-10.2); CARBON DIOXIDE 27 mmol/L (22-30); CHLORIDE 108 mmol/L (98-107); GLUCOSE 140 mg/dL (75-110); POTASSIUM 3.4 mmol/L (3.6-5.0); SALICYLATE < 1.0 mg/dL (2.0-20.0); SODIUM 144.7 mmol/L (137-145); TOTAL PROTEIN 8.1 g/dL (6.3-8.2)
[2018-04-16 20:14] LABS: APPEARANCE,URINE SLIGHTLY-CLOUDY; BILIRUBIN,URINE NEGATIVE (NEGATIVE); COLOR,URINE AMBER; GLUCOSE, URINE NEGATIVE (NEGATIVE); KETONES,URINE TRACE mg/dL (NEGATIVE); LEUKOCYTE ESTERASE,URINE NEGATIVE (NEGATIVE); NITRITE,URINE NEGATIVE (NEGATIVE); PROTEIN,URINE 30 mg/dL (NEGATIVE); UROBILINOGEN,URINE NEGATIVE mg/dL (<2.0)
[2018-04-16 20:20] LABS: URINE AMPHETAMINES SCREEN NEGATIVE; URINE BARBITURATES SCREEN NEGATIVE; URINE BENZODIAZEPINES SCREEN NEGATIVE; URINE COCAINE SCREEN NEGATIVE; URINE MARIJUANA (THC) SCREEN NEGATIVE; URINE METHADONE SCREEN NEGATIVE; URINE PHENCYCLIDINE SCREEN NEGATIVE
[2018-04-16] MEDS ORDERED: FENTANYL CITRATE INJ/PF 100 MCG/2 ML AMPUL IV ONE (20:45)
--- NOTE | 2018-04-16 23:24 | EKG REPORT ---
SEVERITY:- ABNORMAL ECG - SINUS RHYTHM FIRST DEGREE AV BLOCK LEFT BUNDLE BRANCH BLOCK : Confirmed by: Bentley Olguin 16-Apr-2018 23:22:56
--- NOTE | 2018-04-17 01:41 | ER Document Report ---
Addendum entered and electronically signed by PARIS SNOW MD 04/19/18 10:59: Discharge - Discharge Clinical Impression: Paranoid schizophrenia Condition: Stable Disposition: HOME, SELF-CARE Additional Instructions: You have been evaluated both medical and behavioral health teams and been deemed appropriate for discharge. Medication adjustments have been conducted and you have been provided prescriptions for the following Zyprexa 10 mg twice daily Cogentin 1 mg daily please decrease home medication of Remeron to 15 mg nightly please add Depakote 500 mg twice daily Please discontinue home medication of trintellix Please follow-up with your new outpatient mental health provider, MASOUD Jones, at your scheduled appointment on May 16, 2017 at 2 PM Schizophrenia Schizophrenia is a chemical disorder that affects how the brain functions. The exact cause is unknown, but it tends to run in families. It is NOT caused by emotional trauma. Schizophrenia causes disordered thinking, including unusual beliefs and inability to "process" happenings around the patient. Patients with schizophrenia benefit greatly from medicine. These medicines are called antipsychotics. Never stop the medicine without the doctor's approval. Counselling may help the patient deal with his disease. Schizophrenics require a very ordered environment. Stresses and sudden changes may bring out symptoms. Drugs and alcohol abuse may become problems. Contact the counsellor or crisis line if there are thoughts of suicide or of harming others, or if you become aware of unusual thoughts or beliefs. AT ANY TIME, IF YOUR SYMPTOMS CHANGE SIGNIFICANTLY OR WORSEN OR YOU DEVELOP NEW SYMPTOMS, RETURN TO THE EMERGENCY DEPARTMENT IMMEDIATELY FOR RE-EVALUATION. Prescriptions: Mirtazapine [Remeron 15 mg Tablet] 15 mg PO QHS #30 tablet Benztropine Mesylate [Cogentin 1 mg Tablet] 1 mg PO DAILY 30 Days #30 tablet Divalproex Sodium [Depakote ER 500 mg Tab.sr] 500 mg PO Q12 #60 tab.sr.24h Referrals: [facility] [Outside] - 05/16/18 2:00 pm [facility] Crisis Team [Outside] - Follow up as needed CHAD MENDOZA MD [Primary Care Provider] - Follow up as needed Addendum entered and electronically signed by PARIS SNOW MD 04/19/18 10:58: Discharge - Discharge Clinical Impression: Paranoid schizophrenia Condition: Stable Disposition: HOME, SELF-CARE Additional Instructions: You have been evaluated both medical and behavioral health teams and been deemed appropriate for discharge. Medication adjustments have been conducted and you have been provided prescriptions for the following Zyprexa 10 mg twice daily Cogentin 1 mg daily please decrease home medication of Remeron to 15 mg nightly please add Depakote 500 mg twice daily Please discontinue home medication of trintellix Please follow-up with your new outpatient mental health provider, MASOUD Jones, at your scheduled appointment on May 16, 2017 at 2 PM Schizophrenia Schizophrenia is a chemical disorder that affects how the brain functions. The exact cause is unknown, but it tends to run in families. It is NOT caused by emotional trauma. Schizophrenia causes disordered thinking, including unusual beliefs and inability to "process" happenings around the patient. Patients with schizophrenia benefit greatly from medicine. These medicines are called antipsychotics. Never stop the medicine without the doctor's approval. Counselling may help the patient deal with his disease. Schizophrenics require a very ordered environment. Stresses and sudden changes may bring out symptoms. Drugs and alcohol abuse may become problems. Contact the counsellor or crisis line if there are thoughts of suicide or of harming others, or if you become aware of unusual thoughts or beliefs. AT ANY TIME, IF YOUR SYMPTOMS CHANGE SIGNIFICANTLY OR WORSEN OR YOU DEVELOP NEW SYMPTOMS, RETURN TO THE EMERGENCY DEPARTMENT IMMEDIATELY FOR RE-EVALUATION. Prescriptions: Mirtazapine [Remeron 15 mg Tablet] 15 mg PO QHS #30 tablet Benztropine Mesylate [Cogentin 1 mg Tablet] 1 mg PO DAILY 30 Days #30 tablet Referrals: [facility] [Outside] - 05/16/18 2:00 pm [facility] Crisis Team [Outside] - Follow up as needed CHAD MENDOZA MD [Primary Care Provider] - Follow up as needed Addendum entered and electronically signed by BLAINE GALLARDO LCSWA 04/19/18 10:38: Discharge - Discharge Clinical Impression: Paranoid schizophrenia Condition: Stable Disposition: HOME, SELF-CARE Additional Instructions: You have been evaluated both medical and behavioral health teams and been deemed appropriate for discharge. Medication adjustments have been conducted and you have been provided prescriptions for the following Zyprexa 10 mg twice daily Cogentin 1 mg daily please decrease home medication of Remeron to 15 mg nightly please add Depakote 500 mg twice daily Please discontinue home medication of trintellix Please follow-up with your new outpatient mental health provider, MASOUD Jones, at your scheduled appointment on May 16, 2017 at 2 PM Schizophrenia Schizophrenia is a chemical disorder that affects how the brain functions. The exact cause is unknown, but it tends to run in families. It is NOT caused by emotional trauma. Schizophrenia causes disordered thinking, including unusual beliefs and inability to "process" happenings around the patient. Patients with schizophrenia benefit greatly from medicine. These medicines are called antipsychotics. Never stop the medicine without the doctor's approval. Counselling may help the patient deal with his disease. Schizophrenics require a very ordered environment. Stresses and sudden changes may bring out symptoms. Drugs and alcohol abuse may become problems. Contact the counsellor or crisis line if there are thoughts of suicide or of harming others, or if you become aware of unusual thoughts or beliefs. AT ANY TIME, IF YOUR SYMPTOMS CHANGE SIGNIFICANTLY OR WORSEN OR YOU DEVELOP NEW SYMPTOMS, RETURN TO THE EMERGENCY DEPARTMENT IMMEDIATELY FOR RE-EVALUATION. Referrals: CHAD MENDOZA MD [Primary Care Provider] - Follow up as needed [facility] [Outside] - 05/16/18 2:00 pm [facility] Crisis Team [Outside] - Follow up as needed Original Note: ED General - General Chief Complaint: Altered Mental Status Stated Complaint: ALTERED MENTAL STATUS Time Seen by Provider: 04/16/18 18:47 TRAVEL OUTSIDE OF THE [place] IN LAST 30 DAYS: No - HPI Patient complains to provider of: Psychiatric evaluation Notes: Patient coming in for an apparent psychiatric evaluation. Patient was seen by the triage physician whose note is provided below 67-year-old man with cognitive disease and paranoia who presents from home for worsening paranoid delusions. He had previously been followed by Dr. Rock who then retired making it difficult for them to obtain his normal medications. He has been receiving olanzapine 10 mg every morning and 20 mg every afternoon but is continued to have worsening altered mental status thereafter with what appears to be a paranoia related specifically to those he lives with believing that they have killed many many people are attempting to poison him and may be attempting to kill all of the Jehovah[employer] Witnesses and place them into dumpsters in the back. He demonstrates diminished insight. Because of my concern for this gentleman's inability to understand things believe he would benefit from evaluation and possible disposition determination. I will plan for this patient undergo further investigation evaluation by secondary provider, the the appropriate diagnostics, disposition and workup will be deferred to that provider. I have performed a rapid screening examination and they will require further evaluation. This information was obtained from family member Melissa Godinez was able to contact the family member who does confirm the above statements. Upon my evaluation of the patient resting comfortably patient is hard of hearing patient states that he is unaware why he was here in the ER today patient denies any chest pain abdominal pain nausea vomiting fevers or chills. Patient states he has been compliant with his medications otherwise patient does not voice any homicidal suicidal ideation We have asked that the patient is being poisoned or if he is concerned that p eople are attempt to kill all the Spiritism this patient will neither to confirm or deny any of the statements - Related Data Allergies/Adverse Reactions: No Known Allergies Allergy (Verified 04/16/18 18:25) Past Medical History - Social History Smoking Status: Unknown if Ever Smoked Family History: Reviewed & Not Pertinent Patient has suicidal ideation: No Patient has homicidal ideation: No Renal/ Medical History: Denies: Hx Peritoneal Dialysis Musculoskeletal Medical History: Reports Hx Arthritis Psychiatric Medical History: Reports: Hx Depression, Hx Schizophrenia - Paranoid schizophrenia Past Surgical History: Reports: Hx Appendectomy, Hx Cholecystectomy - Immunizations Hx Diphtheria, Pertussis, Tetanus Vaccination: No Hx Pneumococcal Vaccination: 06/08/11 Review of Systems - Review of Systems Constitutional: No symptoms reported EENT: No symptoms reported Cardiovascular: No symptoms reported Respiratory: No symptoms reported Gastrointestinal: No symptoms reported Genitourinary: No symptoms reported Male Genitourinary: No symptoms reported Musculoskeletal: No symptoms reported Skin: No symptoms reported Hematologic/Lymphatic: No symptoms reported Neurological/Psychological: No symptoms reported -: Yes All other systems reviewed and negative Physical Exam - Vital signs Vitals: Temp Pulse Resp BP Pulse Ox 99.5 F 56 L 20 135/92 H 97 04/16/18 18:37 04/16/18 18:37 04/16/18 18:37 04/16/18 18:37 04/16/18 18:37 Interpretation: Normal - General General appearance: Appears well, Alert - HEENT Head: Normocephalic, Atraumatic Eyes: Normal Pupils: PERRL - Respiratory Respiratory status: No respiratory distress Chest status: Nontender Breath sounds: Normal Chest palpation: Normal - Cardiovascular Rhythm: Regular Heart sounds: Normal auscultation Murmur: No - Abdominal Inspection: Normal Distension: No distension Bowel sounds: Normal Tenderness: Nontender Organomegaly: No organomegaly - Back Back: Normal, Nontender - Extremities General upper extremity: Normal inspection, Nontender, Normal color, Normal ROM, Normal temperature General lower extremity: Normal inspection, Nontender, Normal color, Normal ROM, Normal temperature, Normal weight bearing. No: Felipa's sign - Neurological Neuro grossly intact: Yes Cognition: Normal Orientation: AAOx4 Nishant Coma Scale Eye Opening: Spontaneous Nishant Coma Scale Verbal: Oriented Nishant Coma Scale Motor: Obeys Commands Nishant Coma Scale Total: 15 Speech: Normal Motor strength normal: LUE, RUE, LLE, RLE Sensory: Normal - Psychological Associated symptoms: Normal affect, Normal mood - Skin Skin Temperature: Warm Skin Moisture: Dry Skin Color: Normal Course - Re-evaluation Re-evalutation: 04/17/18 01:42 Patient coming in for psychiatric evaluation according family members patient is having paranoid delusions stating that people are out to poison him. Patient neither confirms or denies these allegations when asked otherwise is resting comfortably denies any homicidal suicidal ideation patient's past visits were reviewed patient does have a history of a schizophrenia. Otherwise medically at this time patient has no critical pathology will clear the patient for psychiatric evaluation in the morning - Vital Signs Vital signs: Temp Pulse Resp BP Pulse Ox 98.7 F 56 L 23 H 140/80 H 97 04/17/18 01:00 04/16/18 18:37 04/17/18 00:01 04/17/18 00:01 04/17/18 00:01 - Laboratory Result Diagrams: 04/16/18 19:34 04/16/18 19:34 Laboratory results interpreted by me: 04/16/18 04/16/18 04/16/18 19:34 19:34 19:34 WBC 12.1 H Absolute Neutrophils 9.0 H Potassium 3.4 L Chloride 108 H BUN 21 H Glucose 140 H ALT 16 L Urine Protein 30 H Urine Ketones TRACE H Salicylates < 1.0 L Acetaminophen < 10 L Discharge - Discharge Clinical Impression: Paranoid schizophrenia Condition: Fair Disposition: PSYCH HOSP/UNIT Referrals: CHAD MENDOZA MD [Primary Care Provider] - Follow up as needed
--- NOTE | 2018-04-17 10:33 | ER Document Report ---
Doctor's Note Notes: 04/17/18 10:36 Patient reports having abdominal pain last night with associated bloody stool. Patient alleges that Toney Godinez and and Melissa Godinez of [address] are poisoning his food. There was some mention of [employer]es on previous notes. 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 Patient denies vomiting, diarrhea, homicidal or suicidal ideation. PHYSICAL EXAM GENERAL: Alert, interacts well. No acute distress. HEAD: Normocephalic, atraumatic. EYES: Pupils equal, round, and reactive to light. Extraocular movements intact. Difficulty hearing at baseline. ENT: Oral mucosa moist, tongue midline. NECK: Full range of motion. Supple. Trachea midline. LUNGS: Clear to auscultation bilaterally, no wheezes, rales, or rhonchi. No respiratory distress. HEART: Regular rate and rhythm. No murmurs, gallops, or rubs. ABDOMEN: Soft, non-tender. Non-distended. Bowel sounds present in all 4 quadrants. No guarding, rigidity, or rebound. EXTREMITIES: Moves all 4 extremities spontaneously. NEUROLOGICAL: Alert and oriented x3. Normal speech. PSYCH: Normal affect, normal mood. SKIN: Warm, dry, normal turgor. No rashes or lesions noted. (JESSE PRADHAN) 04/17/18 19:09 repeat blood work not significantly changed, no significant increase in leukocytosis, abdominal exam continues to be benign, no indication for imaging. Behavioral health would like to continue to observe overnight because they are not sure he was taking his medications at home and they would like to continue d irectly observed therapy. (EMILY GALAN) Scribe Documentation - Scribe Written by Scribe:: Jesse Pradhan, [place], 04/17/2018 [id number] acting as scribe for :: Anne Marie
[2018-04-17 11:44] LABS: ABSOLUTE BASOPHILS # (AUTO) 0.1 10^3/uL (0.0-0.2); ABSOLUTE EOSINOPHILS # (AUTO) 0.3 10^3/uL (0.0-0.6); ABSOLUTE LYMPHOCYTES (AUTO) 2.2 10^3/uL (0.5-4.7); ABSOLUTE MONOCYTES (AUTO) 0.8 10^3/uL (0.1-1.4); ABSOLUTE NEUT (AUTO) 9.2 10^3/uL (1.7-8.2); BASOPHILS % (AUTO) 0.6 % (0-2); EOSINOPHILS % (AUTO) 2.4 % (0-6); HEMATOCRIT 41.4 % (37.9-51.0); LYMPHOCYTES % (AUTO) 17.3 % (13-45); MEAN CORPUSCULAR HEMOGLOBIN 29.6 pg (27.0-33.4); MEAN CORPUSCULAR HGB CONC 33.8 g/dL (32.0-36.0); MEAN CORPUSCULAR VOLUME 88 fl (80-97); MONOCYTES % (AUTO) 6.5 % (3-13); PLATELET COUNT 226 10^3/uL (150-450); RED BLOOD COUNT 4.72 10^6/uL (4.35-5.55); RED CELL DISTRIBUTION WIDTH 13.6 % (11.5-14.0); SEGMENTED NEUTROPHILS % (AUTO) 73.2 % (42-78); TOTAL CELLS COUNTED % (AUTO) 100 %; WHITE BLOOD COUNT 12.6 10^3/uL (4.0-10.5)
[2018-04-17 11:57] LABS: ALANINE AMINOTRANSFERASE 14 U/L (21-72); ALBUMIN 3.9 g/dL (3.5-5.0); ALKALINE PHOSPHATASE 70 U/L (38-126); ANION GAP 11 (5-19); ASPARTATE AMINO TRANSFERASE 22 U/L (17-59); BILIRUBIN,DIRECT 0.3 mg/dL (0.0-0.4); BILIRUBIN,TOTAL 1.3 mg/dL (0.2-1.3); BLOOD UREA NITROGEN 17 mg/dL (7-20); CARBON DIOXIDE 21 mmol/L (22-30); CHLORIDE 109 mmol/L (98-107); GLUCOSE 128 mg/dL (75-110); LIPASE 71.4 U/L (23-300); POTASSIUM 3.7 mmol/L (3.6-5.0); SODIUM 140.5 mmol/L (137-145); TOTAL PROTEIN 6.9 g/dL (6.3-8.2)
--- NOTE | 2018-04-17 13:16 | PSYCHOLOGICAL NOTE ---
Psych Note - Psych Note Date seen by psych provider: 04/17/18 Time seen by psych provider: 09:42 Psych Note: Reason for Consult: psychosis Patient reports he knows he is at [facility] but does not really understand why. He states that he has been sick for some days now reporting that his "stomach hurts." He reports that he has bloody stool and that he is being poisoned in his food stating "hamburger and salad poisoned." Patient repeats "they poisoning me." Patient is alert and orientated to person, place and time. Patient denies suicidal and homicidal ideation. Persecutory delusions are noted. Thought content is very focused on his belief of being poisoned. Eye contact is fair. Conversational speech is at times difficult to understand; patient has significant hearing impairment. Attention and concentration is poor. Insight, judgment, impulse control is fair. Medication recommendations per [facility]'s contracted psychiatrist Dr. Naya FLORES are as follows Zyprexa 10 mg twice daily Cogentin 1 mg daily please decrease home medication of Remeron to 15 mg nightly 298.9 (F29) Unspecified Schizophrenia Spectrum and Other Psychotic Disorder per history Impression\\plan: Patient is recommended to continue overnight mental health obse rvation. Patient is demonstrating delusions and is unclear if he has been taking medications as prescribed. Patient will be reevaluated. Dr. Joseph was consulted and care management this patient; attending physicians in agreement with her conditions and disposition
[2018-04-18] MEDS ORDERED: BENZTROPINE MESYLATE 1 MG TABLET PO ONE (10:23)
[2018-04-18] MEDS ORDERED: OLANZAPINE 5 MG TABLET PO ONE (10:23)
--- NOTE | 2018-04-18 10:38 | PSYCHOLOGICAL NOTE ---
Psych Note - Psych Note Date seen by psych provider: 04/18/18 Time seen by psych provider: 07:20 Psych Note: Reason for consult: Psychosis Check-in conducted with patient Patient confirms that he has not been taking his medication for "a few days." He states he has no concerns and again confirms that he is being poisoned in his food. Patient is observed eating. Mood is euthymic with congruent affect. Clinician spoke with Melissa Godinez his caregiver. She reports that patient just started having difficulties with delusions. She reports that he has been adamant that her cooking is poisoning him and then decided that her and amish friends are trying to kill him. She also disclosed that the patient recently decided his legal guardian is part of the [employer]. She discloses that the troubles began when Dr. Rock retired from [facility]. She reports that they were going to give her him a referral to a different company that I was not doing telehealth because of the patient's hearing difficulties. She disclosed that it did not work out because the [employer] was also moving to [employer]. They then decided to stay with [facility] however went to [facility] location last week and were told that they were not going to get med [facility] because it was just the initial visit. She reports frustration that it was just from one location to another in the same company. She discloses that they ended up going to the patient's primary care provider for medications however he did not provide the patient's normal dosage of medications. She reports the patient normally gets Zyprexa 15 mg twice daily however Dr. Serna only wrote a prescription for 20 mg daily. She reports the patient frequently has difficulty with changes of medications and dosages. Medication recommendations per [facility]'s contracted psychiatrist Dr. Naya FLORES are as follows Zyprexa 10 mg twice daily Cogentin 1 mg daily please decrease home medication of Remeron to 15 mg nightly please add Depakote 500 mg twice daily 298.9 (F29) Unspecified Schizophrenia Spectrum and Other Psychotic Disorder per history Impression/plan: Patient is recommended for overnight mental health observation. Patient has been off his medications and needs some medication adjustments. Medication recommendations have been provided. Patient does not meet IVC criteria per [place] GS 122C; however patient is verbalizing some persecutory delusions. Patient has been calm and appropriate during entire [facility] ED visit. Patient will be reevaluated. Dr. Joseph was consulted and care management this patient; attending physicians in agreement with recommendations and disposition
[2018-04-18] MEDS: DIVALPROEX SODIUM 250 MG TABLET.DR PO SCH ×2 (11:28→19:03)
--- NOTE | 2018-04-18 18:04 | ER Document Report ---
Doctor's Note Notes: 04/18/18 18:02 Patient is resting in bed comfortably. He does not have any complaints at this time. I discussed his management and hope that the medications we have him on now will stabilize him enough to facilitate discharge tomorrow. He seems a little ambivalent to the idea of being discharged home but I cannot tell if it is just his underlying psychiatric problem and inability to process the information properly. He did have a Zyprexa 15 mg oral dose and Depakote 500 mg orally earlier today, and is now on Zyprexa 5 mg twice daily, Remeron 15 mg nightly, Depakote 500 mg twice daily, and Cogentin 1 mg daily. He will be reevaluated by the psychiatry personnel tomorrow to determine disposition.
[2018-04-18] MEDS: OLANZAPINE 5 MG TABLET PO SCH (19:03)
[2018-04-18] MEDS ORDERED: MIRTAZAPINE 15 MG TABLET PO SCH (22:00)
[2018-04-19] MEDS: DIVALPROEX SODIUM 250 MG TABLET.DR PO SCH (09:11)
[2018-04-19] MEDS: OLANZAPINE 5 MG TABLET PO SCH (09:11)
--- NOTE | 2018-04-19 09:30 | ER Document Report ---
Doctor's Note Notes: 04/19/18 09:30 67-year-old male with past medical history including paranoid schizophrenia who presents with family with increased delusions about the family attempting to injure him. Patient was followed by provider at [facility] who recently is no longer at the practice. The psychiatry/psychology team has medicated the patient and are attempting to find better outpatient treatment options and will talk with the family about the patient going home today. Vital signs are stable. Patient has been calm and cooperative. 04/19/18 10:54 The family is here and is very comfortable/actually anxious to take the patient home. They have asked that I refill his Cogentin, Remeron, and Depakote prescriptions. Patient is very calm and cooperative at this time. Vital signs are stable. We have set up [facility] outpatient follow-up with the psychiatry clinic.
[2018-04-19] MEDS ORDERED: OLANZAPINE 5 MG TABLET PO SCH (10:00)
[2018-04-19] MEDS ORDERED: BENZTROPINE MESYLATE 1 MG TABLET PO SCH (10:00)
--- NOTE | 2018-04-19 11:10 | PSYCHOLOGICAL NOTE ---
Psych Note - Psych Note Date seen by psych provider: 04/19/18 Time seen by psych provider: 10:45 Psych Note: Reason for consult: Psychosis Check-in conducted with patient Patient reports he would like to go home and confirms he feels safe with his caregiver. Clinician spoke with Melissa Godinez his caregiver and discussed medication changes. She reports that the patient's upcoming appointment with [facility] was moved up to May 16 at 2 PM. She confirms she will head to [facility] for patient's discharge. Medication recommendations per [facility]'s contracted psychiatrist Dr. Naya FLORES are as follows Zyprexa 10 mg twice daily Cogentin 1 mg daily please decrease home medication of Remeron to 15 mg nightly please add Depakote 500 mg twice daily 298.9 (F29) Unspecified Schizophrenia Spectrum and Other Psychotic Disorder per history Impression/plan: Patient is cleared from acute psychiatric services. Patient has been calm and appropriate during entire [facility] ED visit. Patient disclosed that he had missed some doses of his medication. Patient has been restarted on medication in addition to adding a mood stabilizer per the recommendation of psychiatrist. Patient is recommended to follow-up with his existing appointment with [facility] on May 16 at 2 PM. Behavior health team provided resource list with mobile crisis contact information for crisis intervention to assist with any behavioral aspects. Dr. Joseph was consulted and care management this patient; attending physicians in agreement with recommendations and disposition
[2018-04-19 11:13] VITALS: BP 134/85
== END 2018-04-19 11:13 | disposition home or self-care (01) ==
LOC: ER 18:24
DX: F20.0 Paranoid schizophrenia (principal); Z90.49 Acquired absence of other specified parts of digestive tract
CPT/HCPCS: 93005; 99285; 96374; 36415; 80307 ×4; 82550; 83690; 85025; 80053; 81001; 70450; 93010; A9270 ×7; J3010

== ENCOUNTER 2019-10-31 03:39 | Emergency (ER) | payer MEDICARE, MEDICAID ==
[2019-10-31] MEDS ORDERED: NORMAL SALINE 1000 ML 1,000 ML IV ONE (03:55)
--- NOTE | 2019-10-31 04:02 | ER Document Report ---
ED General - General TRAVEL OUTSIDE OF THE [place] IN LAST 30 DAYS: No <SIN BASHIR - Last Filed: 10/31/19 07:25> <OG CASTILLO - Last Filed: 10/31/19 13:58> - General Chief Complaint: General Weakness Stated Complaint: WEAKNESS Time Seen by Provider: 10/31/19 03:45 Primary Care Provider: CHAD MENDOZA MD [Primary Care Provider] - Follow up as needed Notes: Patient is a 69-year-old male that comes to the emergency department for chief complaint of weakness. Family called EMS, EMS states that patient was found kneeling on the floor and could not get up into his bed. No fall injuries reported. EMS found the patient had a fever of 101.5 F, patient was given 975 mg of Tylenol. Family denies any noted sick symptoms during the day including cough, vomiting, diarrhea, or any complaints. 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 He does respond correctly to written He also has hypertension, appendectomy, cholecystectomy. No cardiac or pulmonary history reported. No obvious sick contacts reported. (SIN BASHIR) - Related Data Allergies/Adverse Reactions: No Known Allergies Allergy (Verified 04/16/18 18:25) Past Medical History - General Information source: Emergency Med Personnel - Social History Smoking Status: Never Smoker Frequency of alcohol use: None Drug Abuse: None Lives with: Family Family History: Reviewed & Not Pertinent - Past Medical History Cardiac Medical History: Reports: Hx Hypertension Endocrine Medical History: Denies: Hx Diabetes Mellitus Type 1, Hx Diabetes Mellitus Type 2 Renal/ Medical History: Denies: Hx Peritoneal Dialysis Musculoskeletal Medical History: Reports Hx Arthritis Psychiatric Medical History: Reports: Hx Depression, Hx Schizophrenia - Paranoid schizophrenia Past Surgical History: Reports: Hx Appendectomy, Hx Cholecystectomy - Immunizations Hx Diphtheria, Pertussis, Tetanus Vaccination: Yes Hx Pneumococcal Vaccination: 06/08/11 <SIN BASHIR - Last Filed: 10/31/19 07:25> Review of Systems - Review of Systems Constitutional: See HPI EENT: No symptoms reported Cardiovascular: No symptoms reported Respiratory: No symptoms reported Gastrointestinal: No symptoms reported Genitourinary: No symptoms reported Male Genitourinary: No symptoms reported Musculoskeletal: No symptoms reported Skin: No symptoms reported Hematologic/Lymphatic: No symptoms reported Neurological/Psychological: No symptoms reported <SIN BASHIR - Last Filed: 10/31/19 07:25> Physical Exam <SIN BASHIR - Last Filed: 10/31/19 07:25> - Vital signs Interpretation: Normal - General General appearance: Appears well, Alert - HEENT Head: Normocephalic, Atraumatic Eyes: Normal Pupils: PERRL - Respiratory Respiratory status: No respiratory distress Chest status: Nontender Breath sounds: Normal Chest palpation: Normal - Cardiovascular Rhythm: Regular Heart sounds: Normal auscultation Murmur: No - Abdominal Inspection: Normal Distension: No distension Bowel sounds: Normal Tenderness: Nontender Organomegaly: No organomegaly - Genitourinary Tenderness: Nontender, Other - Back Back: Normal, Nontender - Extremities General upper extremity: Normal inspection, Nontender, Normal color, Normal ROM, Normal temperature General lower extremity: Normal inspection, Nontender, Normal color, Normal ROM, Normal temperature, Normal weight bearing. No: Felipa's sign - Neurological Neuro grossly intact: Yes Cognition: Normal Orientation: AAOx4 Whitt Coma Scale Eye Opening: Spontaneous Whitt Coma Scale Verbal: Oriented Nishant Coma Scale Motor: Obeys Commands Whitt Coma Scale Total: 15 Speech: Normal Motor strength normal: LUE, RUE, LLE, RLE Sensory: Normal - Psychological Associated symptoms: Normal affect, Normal mood - Skin Skin Temperature: Warm Skin Moisture: Dry Skin Color: Normal <OG CASTILLO - Last Filed: 10/31/19 13:58> - Vital signs Vitals: BP Pulse Ox 136/74 H 95 10/31/19 03:40 10/31/19 03:40 - Notes Notes: GENERAL: Alert, interacts well. No acute distress. HEAD: Normocephalic, atraumatic. EYES: Pupils equal, round, and reactive to light. Extraocular movements intact. ENT: Oral mucosa moist, tongue midline. Oropharynx unremarkable. Airway patent. NECK: Full range of motion. Supple. Trachea midline. No lymphadenopathy. LUNGS: Clear to auscultation bilaterally, no wheezes, rales, or rhonchi. No respiratory distress. Non-tender chest wall. HEART: Regular rate and rhythm. No murmur ABDOMEN: Soft, non-tender. Non-distended. Bowel sounds present in all 4 quadrants. GENITOURINARY: Right testicle unremarkable, however the left testicle is noted to have marked swelling, is very firm, is nontender. No erythema or signs of infection. No discharge or other concerning findings. EXTREMITIES: Moves all 4 extremities spontaneously. No edema, normal radial and dorsalis pedis pulses bilaterally. No cyanosis. BACK: no cervical, thoracic, lumbar midline tenderness. No saddle anesthesia, normal distal neurovascular exam. Moves all extremities in full range of motion. NEUROLOGICAL: Alert and cooperative, follows directions but is unable to hear. Minimal speech does not sound slurred. Cranial nerves II through XII grossly intact. Strength 5/5 in all extremities. SKIN: Warm, dry, normal turgor. No rashes or lesions noted. (SIN BASHIR) Course - Laboratory Result Diagrams: 10/31/19 03:50 10/31/19 03:50 <SIN BASHIR - Last Filed: 10/31/19 07:25> - Laboratory Result Diagrams: 10/31/19 03:50 10/31/19 03:50 <OG CASTILLO - Last Filed: 10/31/19 13:58> - Re-evaluation Re-evalutation: Patient febrile, awake, cooperative, there is some limitation because of his deafness and limited ability to communicate (he cannot communicate with Angolan sign which, he communicates only with written instructions and limited verbal response). He does not appear to be in distress. He is not tachycardic, he is not hypotensive. Lungs clear, abdomen soft, physical exam otherwise unremarkable except for large, firm, nontender masslike area over the left testicle. CBC unremarkable, chemistry unremarkable, troponin is not elevated, chest x-ray unremarkable, urinalysis unremarkable, lactic acid is not elevated. Blood cultures pending. Patient will be COVID-19 tested. Pending ultrasound results. (SIN BASHIR) 10/31/19 13:57 Chest X-Ray 10/31/19 03:54 IMPRESSION: Clear lungs. Scrotum Ultrasound 10/31/19 06:05 IMPRESSION: 1. No evidence is seen to suggest testicular torsion. 2. No intratesticular mass is seen. 3. There is a moderate amount of fluid seen around both testicles, left greater than right. (OG CASTILLO) - Vital Signs Vital signs: Temp Pulse Resp BP Pulse Ox 98.3 F 60 19 104/62 96 10/31/19 08:19 10/31/19 08:19 10/31/19 12:00 10/31/19 10:00 10/31/19 12:00 - Laboratory Laboratory results interpreted by me: 10/31/19 10/31/19 03:50 05:55 Chloride 108 H BUN 23 H Glucose 115 H Urine Urobilinogen 4.0 H - EKG Interpretation by Me Additional EKG results interpreted by me: EKG shows sinus rhythm at a rate of 86, left bundle branch block is present, however left bundle branch block is also present on previous EKG. EKG reviewed and compared to prior with Dr. Castillo. (SIN BASHIR) Discharge <SIN BASHIR - Last Filed: 10/31/19 07:25> <OG CASTILLO - Last Filed: 10/31/19 13:58> - Discharge Clinical Impression: UTI (urinary tract infection) Qualifiers: Urinary tract infection type: site unspecified Hematuria presence: without hematuria Qualified Code(s): N39.0 - Urinary tract infection, site not specified Condition: Good Disposition: HOME, SELF-CARE Instructions: Urinary Tract Infection ([facility]) Prescriptions: Ciprofloxacin HCl [Cipro 500 mg Tablet] 500 mg PO BID #10 tablet Tamsulosin HCl [Flomax 0.4 mg Cap.sr] 0.4 mg PO DAILY #7 cap.sr.24h Referrals: CHAD MENDOZA MD [Primary Care Provider] - Follow up as needed
[2019-10-31 04:10] LABS: ABSOLUTE EOSINOPHILS # (AUTO) 0.1 10^3/uL (0.0-0.6); ABSOLUTE LYMPHOCYTES (AUTO) 1.2 10^3/uL (0.5-4.7); ABSOLUTE MONOCYTES (AUTO) 0.8 10^3/uL (0.1-1.4); ABSOLUTE NEUT (AUTO) 5.5 10^3/uL (1.7-8.2); BASOPHILS % (AUTO) 0.5 % (0-2); EOSINOPHILS % (AUTO) 1.2 % (0-6); HEMATOCRIT 41.7 % (37.9-51.0); HEMOGLOBIN 14.2 g/dL (13.5-17.0); LYMPHOCYTES % (AUTO) 15.8 % (13-45); MEAN CORPUSCULAR HEMOGLOBIN 31.3 pg (27.0-33.4); MEAN CORPUSCULAR HGB CONC 34.1 g/dL (32.0-36.0); MEAN CORPUSCULAR VOLUME 92 fl (80-97); MONOCYTES % (AUTO) 10.2 % (3-13); PLATELET COUNT 152 10^3/uL (150-450); RED BLOOD COUNT 4.53 10^6/uL (4.35-5.55); RED CELL DISTRIBUTION WIDTH 13.9 % (11.5-14.0); SEGMENTED NEUTROPHILS % (AUTO) 72.3 % (42-78); TOTAL CELLS COUNTED % (AUTO) 100 %; WHITE BLOOD COUNT 7.7 10^3/uL (4.0-10.5)
[2019-10-31 04:28] LABS: ALBUMIN 3.6 g/dL (3.5-5.0); ALKALINE PHOSPHATASE 65 U/L (38-126); ANION GAP 7 (5-19); ASPARTATE AMINO TRANSFERASE 30 U/L (17-59); BILIRUBIN,TOTAL 0.6 mg/dL (0.2-1.3); BLOOD UREA NITROGEN 23 mg/dL (7-20); CALCIUM 8.8 mg/dL (8.4-10.2); CARBON DIOXIDE 24 mmol/L (22-30); CHLORIDE 108 mmol/L (98-107); GLUCOSE 115 mg/dL (75-110); POTASSIUM 3.7 mmol/L (3.6-5.0); TOTAL PROTEIN 6.7 g/dL (6.3-8.2)
--- NOTE | 2019-10-31 05:02 | RADIOLOGY REPORT (SQ) ---
CLINICAL HISTORY: fever, tachypnea, rales COMPARISON: 11/01/2016. TECHNIQUE: XR CHEST 1 VIEW 10/31/2019 3:54 AM CDT FINDINGS: Cardiac silhouette is normal in size. Lungs are clear without consolidation, atelectasis, mass or edema. There is no pleural effusion. There is no pneumothorax. There are no acute osseous findings. IMPRESSION: Clear lungs.
[2019-10-31] MEDS ORDERED: LIDOCAINE 2% URO-JET 5 ML KIT MM ONE (05:42)
[2019-10-31 06:22] LABS: APPEARANCE,URINE CLEAR; BILIRUBIN,URINE NEGATIVE (NEGATIVE); COLOR,URINE YELLOW; GLUCOSE, URINE NEGATIVE (NEGATIVE); KETONES,URINE NEGATIVE (NEGATIVE); PROTEIN,URINE NEGATIVE (NEGATIVE); URINE SPECIFIC GRAVITY 1.016
--- NOTE | 2019-10-31 07:45 | RADIOLOGY REPORT (SQ) ---
TESTICULAR ULTRASOUND: 10/31/2019 6:44 AM CDT HISTORY: 69-year old patient with enlarged and small left testicle. COMPARISON: None available TECHNIQUE: Multiple longitudinal and transverse sonographic images were obtained of the right and left testicle. Color and spectral doppler images were obtained of the testicular vasculature. FINDINGS: Both testicles appear homogenous without evidence of a mass. There are moderate amount of fluid seen around both testicles, left greater than right. The left testicle appears normal in size, and it measures 3.8 x 3.0 x 1.8 cm. The left testicle appears homogeneous in echotexture and demonstrates arterial blood flow within the testicle. The left epididymal head appears normal in size and does not appear hyperemic. The right testicle appears normal in size, and it measures 3.9 x 2.7 x 2.3 cm. The right testicle appears homogeneous in echotexture and demonstrates good arterial blood flow within the testicle. The right epididymal head appears normal in size and does not appear hyperemic. IMPRESSION: 1. No evidence is seen to suggest testicular torsion. 2. No intratesticular mass is seen. 3. There is a moderate amount of fluid seen around both testicles, left greater than right.
--- NOTE | 2019-10-31 07:51 | EKG REPORT ---
SEVERITY:- ABNORMAL ECG - SINUS RHYTHM LEFT BUNDLE BRANCH BLOCK : Confirmed by: Matthias Alas MD 31-Oct-2019 07:51:29
[2019-10-31 16:19] VITALS: BP 153/73
== END 2019-10-31 16:21 | disposition home or self-care (01) ==
LOC: ER 03:39
DX: N39.0 Urinary tract infection, site not specified (principal); R53.1 Weakness; R50.9 Fever, unspecified; H91.90 Unspecified hearing loss, unspecified ear; F20.9 Schizophrenia, unspecified; I44.7 Left bundle-branch block, unspecified; I10 Essential (primary) hypertension; Z20.828 Contact with and (suspected) exposure to other viral communicable diseases
CPT/HCPCS: 99285; 96360; 96361; 36415; 87040; 83605; 85025; 80053; 81001; 84484; 80164; 71045; 76870; 93976; 93005; 93010; U0003; J7030; A9270; C9803; 87635; J3490

== ENCOUNTER 2020-02-20 15:30 | Emergency (ER) | payer MEDICARE, MEDICAID ==
--- NOTE | 2020-02-20 16:01 | ER Document Report ---
ED Medical Screen (RME) - General Chief Complaint: Altered Mental Status Stated Complaint: ALTERED MENTAL STATUS Time Seen by Provider: 02/20/20 15:39 Primary Care Provider: CHAD MENDOZA MD [Primary Care Provider] - Follow up as needed TRAVEL OUTSIDE OF THE [place] IN LAST 30 DAYS: No - HPI Notes: 02/20/20 15:57 69-year-old male with past medical history for hypertension, paranoid schizophrenia to the emergency department with his caregiver for altered mental status for the past 2 days. The patient's regular caregivers are not currently in the home and so they have some substitute members helping out. He goes to adult daycare every single day. Caregiver here today states that she had a funny feeling about him yesterday and called the daycare and was told by caregiver there that he he may be hearing voices. He was not acting completely like himself. However he was doing other things that he normally does. I decided to keep a close eye on him and caregiver today instructed the caregiver at daycare to call her in case the patient did not show up to daycare today. She received a call this morning that he had not showed up by about 8:30 AM. He usually gets himself on transportation and gets to daycare without any difficulty. It is odd that he did not come this morning. Caregiver with him today states that when she got to his home he was sitting in a chair in his living room and just kind of staring off in space. She had some difficulty engaging with him. At baseline she can usually easily get his attention and correspond with him although he is minimally verbal. She states she was not able to do any of the normal things that they usually do to communicate today. She took him to his primary care doctor, Dr. Alvarado, and Dr. Mendoza felt that he was definitely different from his baseline. He kept trying to take off his clothing during her interview and was having a hard time staying on task. Dr. Velasco decided to send him over here to the emergency department for further evaluation for altered mental status. Of note he is on Depakote. His caregiver today states that it looks like he is taken all of his medicines like he normally does but she is not exactly sure. He does stay by himself at night but otherwise has pretty extensive care in the home and at daycare. Brief medical screening exam in triage illustrates an elderly gentleman who has a lot of difficulty engaging with staff. He is often staring off into the distance. If I show him what I want him to do for neurological exam he will mimic me but it is obvious that he does not completely understand. He continues to try to take his clothing off in triage as well. It is evident that he is altered. I performed a brief medical screening exam on the patient determined that the patient needs further evaluation and management by main side provider. I have placed initial orders to help expedite care. - Related Data Allergies/Adverse Reactions: No Known Allergies Allergy (Verified 02/20/20 15:54) Home Medications: vitamin d. remeron. benztropine. olanzapine. depakote. metoprolol tart. atorvastatin. senna. hydroxyzine. lisinopril. asa Past Medical History - Past Medical History Cardiac Medical History: Reports: Hx Hypertension Endocrine Medical History: Denies: Hx Diabetes Mellitus Type 1, Hx Diabetes Mellitus Type 2 Renal/ Medical History: Denies: Hx Peritoneal Dialysis Musculoskeltal Medical History: Reports Hx Arthritis Psychiatric Medical History: Reports: Hx Depression, Hx Schizophrenia - Paranoid schizophrenia Past Surgical History: Reports: Hx Appendectomy, Hx Cholecystectomy - Immunizations Hx Diphtheria, Pertussis, Tetanus Vaccination: Yes Physical Exam - Vital signs Vitals: Temp Pulse Resp BP Pulse Ox 99.1 F 97 16 179/101 H 96 02/20/20 15:42 02/20/20 15:42 02/20/20 15:42 02/20/20 15:42 02/20/20 15:42 Course - Vital Signs Vital signs: Temp Pulse Resp BP Pulse Ox 99.1 F 97 16 179/101 H 96 02/20/20 15:43 02/20/20 15:42 02/20/20 15:42 02/20/20 15:42 02/20/20 15:42 Doctor's Discharge - Discharge Referrals: CHAD MENDOZA MD [Primary Care Provider] - Follow up as needed
--- NOTE | 2020-02-20 16:06 | ER Document Report ---
ED General - General Chief Complaint: Altered Mental Status Stated Complaint: ALTERED MENTAL STATUS Time Seen by Provider: 02/20/20 15:39 Primary Care Provider: CHAD MENDOZA MD [Primary Care Provider] - Follow up as needed Notes: Patient presents with altered mental status and change in personality. 69-year-old paranoid schizophrenic on multiple medications lives pseudodependently with family with help and has been at home alone getting checked on twice a day and going to a day program for the last few days. He is here with his patient advocate he says that over the last 48 hours he has become more paranoid looking around corners with decreased responsiveness "staring off into space" is been no fever or cough. She thinks that multiple patients of hers have gone different during Covid and required medication changes. He is currently at home and was found after not attending his day program. His adv ocate here does not think that he is stable to be home alone. He cannot give any history. TRAVEL OUTSIDE OF THE [place] IN LAST 30 DAYS: No - Related Data Allergies/Adverse Reactions: No Known Allergies Allergy (Verified 02/20/20 15:54) Home Medications: vitamin d. remeron. benztropine. olanzapine. depakote. metoprolol tart. atorvastatin. senna. hydroxyzine. lisinopril. asa Past Medical History - General Information source: Legal Guardian Cannot obtain history due to: Dementia - Social History Smoking Status: Unknown if Ever Smoked Family History: Reviewed & Not Pertinent Patient has homicidal ideation: No - Past Medical History Cardiac Medical History: Reports: Hx Hypertension Endocrine Medical History: Denies: Hx Diabetes Mellitus Type 1, Hx Diabetes Mellitus Type 2 Renal/ Medical History: Denies: Hx Peritoneal Dialysis Musculoskeletal Medical History: Reports Hx Arthritis Psychiatric Medical History: Reports: Hx Depression, Hx Schizophrenia - Paranoid schizophrenia Past Surgical History: Reports: Hx Appendectomy, Hx Cholecystectomy - Immunizations Hx Diphtheria, Pertussis, Tetanus Vaccination: Yes Hx Pneumococcal Vaccination: 06/08/11 Review of Systems - Review of Systems Notes: REVIEW OF SYSTEMS PHYSICAL EXAMINATION General: No acute distress, well-nourished Head: Atraumatic, normocephalic ENT: Mouth normal, oropharynx moist, no exudates or tonsillar enlargement Eyes: Conjunctiva normal, pupils equal, lids normal Neck: No JVD, supple, no guarding CVS: Normal rate, regular rhythm, no murmurs Resp: No resp distress, equal and normal breath sounds bilaterally GI: Nondistended, soft, no tenderness to palpation, no rebound or guarding Ext: No deformities, no edema, normal range of motion in upper and lower ext Back: No CVA or midline TTP Skin: No rash, warm Lymphatic: No lymphadeopathy noted Neuro: Awake staring. Redirection tracks sometimes. Does not follow commands, but localizes and withdraws to pain on both sides. Attempt to take off his shoe. Physical Exam - Vital signs Vitals: Temp Pulse Resp BP Pulse Ox 99.1 F 97 16 179/101 H 96 02/20/20 15:42 02/20/20 15:42 02/20/20 15:42 02/20/20 15:42 02/20/20 15:42 Course - Re-evaluation Re-evalutation: 02/20/20 16:06 Patient with dementia and psychiatric illness presents with behavior change and altered mental status He is likely suffering from a psychiatric decompensation but I will check for electrolytes anemia stroke head bleed infection etc. 02/20/20 18:59 Patient remained stable in the ED eating. Normal medical work-up. CT shows chronic changes Discussed at length with psychiatry, Felicia he was made some occasional recommendations. We will leave the patient in a "psych consult"" status because when his family gets back Monday night they may be will take him home. - Vital Signs Vital signs: Temp Pulse Resp BP Pulse Ox 99.1 F 97 16 179/101 H 98 02/20/20 15:43 02/20/20 16:10 02/20/20 16:10 02/20/20 16:10 02/20/20 16:10 - Laboratory Result Diagrams: 02/20/20 16:44 02/20/20 16:44 Laboratory results interpreted by me: 02/20/20 16:44 Sodium 136.6 L Glucose 124 H Magnesium 2.4 H Salicylates < 1.0 L Acetaminophen < 10 L Valproic Acid 38.1 L - Diagnostic Test Radiology reviewed: Image reviewed, Reports reviewed Discharge - Discharge Clinical Impression: Behavior concern, Paranoid schizophrenia Condition: Good Disposition: PSYCH HOSP/UNIT Referrals: CHAD MENDOZA MD [Primary Care Provider] - Follow up as needed
--- NOTE | 2020-02-20 16:27 | RADIOLOGY REPORT (SQ) ---
EXAM DESCRIPTION: CHEST SINGLE VIEW IMAGES COMPLETED DATE/TIME: 02/20/2020 4:15 pm REASON FOR STUDY: AMS COMPARISON: 10/31/2019 EXAM PARAMETERS: NUMBER OF VIEWS: One view. TECHNIQUE: Single frontal radiographic view of the chest acquired. RADIATION DOSE: NA LIMITATIONS: None. FINDINGS: LUNGS AND PLEURA: No opacities, masses or pneumothorax. No pleural effusion. MEDIASTINUM AND HILAR STRUCTURES: No masses. Contour normal. HEART AND VASCULAR STRUCTURES: Heart normal in size. Normal vasculature. BONES: No acute findings. HARDWARE: None in the chest. OTHER: No other significant finding. IMPRESSION: NO ACUTE RADIOGRAPHIC FINDING IN THE CHEST. TECHNICAL DOCUMENTATION: JOB ID: [id number] 2010 [employer]- All Rights Reserved Reading location - IP/workstation name: [email or web address]
--- NOTE | 2020-02-20 16:40 | RADIOLOGY REPORT (SQ) ---
EXAM DESCRIPTION: CT HEAD WITHOUT IMAGES COMPLETED DATE/TIME: 02/20/2020 4:28 pm REASON FOR STUDY: altered mental status COMPARISON: 04/16/2018 TECHNIQUE: Axial images acquired through the brain without intravenous contrast. Images reviewed wi th bone, brain and subdural windows. Additional sagittal and coronal reconstructions were generated. Images stored on PACS. All CT scanners at this facility use dose modulation, iterative reconstruction, and/or weight based d osing when appropriate to reduce radiation dose to as low as reasonably achievable (ALARA). [facility]: Dose Right [facility]: CareDose [facility]: Dose Right [facility]: Teradose 4D [facility]: Casmul RADIATION DOSE: CT Rad equipment meets quality standard of care and radiation dose reduction techniq ues were employed. CTDIvol: 53.2 mGy. DLP: 964 mGy-cm. mGy. LIMITATIONS: None. FINDINGS: VENTRICLES: Prominent. CEREBRUM: No masses. No hemorrhage. No midline shift. Areas of low density in the white matter mos t likely due to chronic micro-vascular ischemic change. No evidence for acute infarction. CEREBELLUM: No masses. No hemorrhage. No alteration of density. No evidence for acute infarction. EXTRAAXIAL SPACES: Mild age-related involutional change. No fluid collections. No masses. ORBITS AND GLOBE: No intra- or extraconal masses. Normal contour of globe without masses. CALVARIUM: No fracture. PARANASAL SINUSES: No fluid or mucosal thickening. SOFT TISSUES: No mass or hematoma. OTHER: No other significant finding. IMPRESSION: MILD CHRONIC CHANGES OF ATROPHY AND MICROVASCULAR ISCHEMIA. NO ACUTE PROCESS. EVIDENCE OF ACUTE STROKE: NO. TECHNICAL DOCUMENTATION: JOB ID: [id number] Quality ID # [id number]: Final reports with documentation of one or more dose reduction techniques (e.g., Au tomated exposure control, adjustment of the mA and/or kV according to patient size, use of iterative reconstruction technique) 2010 [email or web address]- All Rights Reserved Reading location - IP/workstation name: [email or web address]
[2020-02-20 17:06] LABS: ABSOLUTE BASOPHILS # (AUTO) 0.1 10^3/uL (0.0-0.2); ABSOLUTE EOSINOPHILS # (AUTO) 0.1 10^3/uL (0.0-0.6); ABSOLUTE LYMPHOCYTES (AUTO) 2.5 10^3/uL (0.5-4.7); ABSOLUTE MONOCYTES (AUTO) 1.2 10^3/uL (0.1-1.4); ABSOLUTE NEUT (AUTO) 5.3 10^3/uL (1.7-8.2); EOSINOPHILS % (AUTO) 1.3 % (0-6); HEMOGLOBIN 14.3 g/dL (13.5-17.0); LYMPHOCYTES % (AUTO) 27.6 % (13-45); MEAN CORPUSCULAR HEMOGLOBIN 30.9 pg (27.0-33.4); MEAN CORPUSCULAR HGB CONC 34.1 g/dL (32.0-36.0); MEAN CORPUSCULAR VOLUME 91 fl (80-97); MONOCYTES % (AUTO) 12.6 % (3-13); PLATELET COUNT 229 10^3/uL (150-450); RED BLOOD COUNT 4.63 10^6/uL (4.35-5.55); RED CELL DISTRIBUTION WIDTH 12.8 % (11.5-14.0); SEGMENTED NEUTROPHILS % (AUTO) 57.5 % (42-78); TOTAL CELLS COUNTED % (AUTO) 100 %; WHITE BLOOD COUNT 9.1 10^3/uL (4.0-10.5)
[2020-02-20 17:15] LABS: ALBUMIN 4.6 g/dL (3.5-5.0); ALKALINE PHOSPHATASE 63 U/L (38-126); ANION GAP 11 (5-19); ASPARTATE AMINO TRANSFERASE 27 U/L (17-59); BILIRUBIN,DIRECT 0.2 mg/dL (0.0-0.4); BILIRUBIN,TOTAL 0.6 mg/dL (0.2-1.3); BLOOD UREA NITROGEN 14 mg/dL (7-20); CALCIUM 9.8 mg/dL (8.4-10.2); CARBON DIOXIDE 26 mmol/L (22-30); CHLORIDE 100 mmol/L (98-107); GLUCOSE 124 mg/dL (75-110); TOTAL PROTEIN 7.8 g/dL (6.3-8.2)
[2020-02-20 17:16] LABS: ACETAMINOPHEN < 10 ug/mL (10-30); SALICYLATE < 1.0 mg/dL (2.0-20.0)
[2020-02-20] MEDS ORDERED: CLONIDINE HCL 0.1 MG TABLET PO PRN (19:01)
[2020-02-20] MEDS ORDERED: RISPERIDONE 0.25 MG TABLET PO PRN (19:01)
[2020-02-20] MEDS ORDERED: DIVALPROEX SODIUM 500 MG TAB.SR.24H PO ONE ×2 (19:01→21:05)
[2020-02-20] MEDS: MIRTAZAPINE 15 MG TABLET PO SCH (21:50)
[2020-02-20 22:42] LABS: APPEARANCE,URINE CLEAR; BILIRUBIN,URINE NEGATIVE (NEGATIVE); COLOR,URINE YELLOW; GLUCOSE, URINE 150 mg/dL (NEGATIVE); KETONES,URINE NEGATIVE (NEGATIVE); PROTEIN,URINE NEGATIVE (NEGATIVE); URINE SPECIFIC GRAVITY 1.015; UROBILINOGEN,URINE NEGATIVE mg/dL (<2.0)
[2020-02-20 22:57] LABS: URINE AMPHETAMINES SCREEN NEGATIVE; URINE BARBITURATES SCREEN NEGATIVE; URINE BENZODIAZEPINES SCREEN NEGATIVE; URINE COCAINE SCREEN NEGATIVE; URINE MARIJUANA (THC) SCREEN NEGATIVE; URINE METHADONE SCREEN NEGATIVE; URINE PHENCYCLIDINE SCREEN NEGATIVE
--- NOTE | 2020-02-20 23:01 | ER Document Report ---
Doctor's Note Notes: 02/20/20 22:59 Patient with massive left testicle on exam, although patient appears to be having significant negative psychotic symptoms and is not able to give history, he is awake and alert and able to demonstrate discomfort, patient has no signs of discomfort on palpation of massive left testicle. Performed bedside ult rasound which showed fluid around the testicle, normal overlying skin, no abdominal tenderness. I had ordered a testicular ultrasound to further investigate this, but then upon chart review saw that patient had similar exam on last visit approximately 3 months ago and had an ultrasound at that time which showed fluid around testicle and no emergent findings. Given that this finding appears to be stable will defer for outpatient urologic follow-up. Patient to be cleared for psych once UA results.
--- NOTE | 2020-02-21 16:02 | ER Document Report ---
Doctor's Note Notes: 02/21/20 16:00 No report was given by the off coming shift on the patient. I was reviewing the psychiatric chart for the day and noted that no one had reported all the patient or evaluated the patient. I spoke with both the psychiatric team and case management. They apparently are planning on holding the patient until his Depakote level is therapeutic and believe he may be then discharged home to family who are returning from their vacation tomorrow night. Depakote was not ordered for today so I have added the Depakote ordered per their request. Patient is in no distress at this time
[2020-02-21] MEDS: DIVALPROEX SODIUM 500 MG TAB.SR.24H PO SCH (17:26)
[2020-02-21] MEDS: MIRTAZAPINE 15 MG TABLET PO SCH (21:59)
[2020-02-22] MEDS: DIVALPROEX SODIUM 500 MG TAB.SR.24H PO SCH ×2 (10:04→18:40)
--- NOTE | 2020-02-22 13:01 | PSYCHOLOGICAL NOTE ---
Psych Note - Psych Note Date seen by psych provider: 02/21/20 Time seen by psych provider: 12:40 Psych Note: Reason for Consult:Catatonia Check in patient: Patient continues to present catatonic-like. He currently is laying in bed and is observed staring at the ceiling. Patient has reportedly been walking to the bathroom unassisted multiple times this morning but refuses to engage with staff. It is noted the patient is subtherapeutic on his depakote and was rest arted by the medical team. Medication recommendations per [facility]'s contracted psychiatrist are as follows: please schedule Depakote 500mg twice daily Continue all other medications Impression/Plan:Patient is recommended for continued mental health observation. Patient is currently voluntary. While he presents "catatonic-like" the patient is taking care of daily needs ie eating and going to the bathroom. There is no indication the patient would be in imminent danger due to his current presentation. Patient's family went on a short vacation and the patient was getting himself ready and continued to take the bus to his day treatment until yesterday when he didn't show up. While the patient was getting himself dressed and taking the bus with no difficulties, he appears to have stopped talking his medications which let to him not leaving his home and his current presentation. Medications have been restarted and once the patient is at his baseline he will be cleared to return home. It is anticipated this will be tomorrow morning. Patient will be re-evaluated. Dr Joseph was consulted on the care and management of this patient; attending physician is in agreement with recommendat ions and disposition.
--- NOTE | 2020-02-22 13:01 | PSYCHOLOGICAL NOTE ---
Psych Note - Psych Note Date seen by psych provider: 02/22/20 Psych Note: Reason for Consult:Catatonia Check in patient: Patient is starting to demonstrate increase engagement with his environment but seems to have more confusion. Patient still minimally engages but was noted to ask one of the patient safety companions where the bathroom was located (the patient has used the bathroom multiple times independently and was noted to be standing in the doorway of the bathroom when he asked staff where it was located). The patient disrobed and it is not clear why, but after being told to dress again by staff, he complied. The patient is noted to have more need of redirection this morning that yesterday. Medication recommendations per [facility]'s contracted psychiatrist are as follows: please continue all medications Impression/Plan:Patient is recommended for continued mental health observation. Patient is currently voluntary. While he presents "catatonic-like" the patient is taking care of daily needs ie eating and going to the bathroom. There is no indication the patient would be in imminent danger do to his current presentation. Patient's family went on a short vacation and the patient was getting himself ready and continued to take the bus to his day treatment until when he didn't show up. While the patient was getting himself dressed and taking the bus with no difficulties, he appears to have stopped talking his medications which led to him not leaving his home and his current presentation. Medications have been restarted and once the patient is at his baseline he will be cleared to return home. Patient will be re-evaluated. Dr Joseph was consulted on the care and management of this patient; attending physician is in agreement with recommendations and disposition.
--- NOTE | 2020-02-22 13:12 | PSYCHOLOGICAL NOTE ---
Psych Note - Psych Note Date seen by psych provider: 02/20/20 Time seen by psych provider: 17:15 - Chart review at 1715. Psych Note: Patient is a 69 y ear old male who presented to the emergency department this evening via privately owned vehicle/caregiver for psychosis, starring off, not interacting (though baseline is nonverbal he usually still interacts and can say some things), with history of paranoid schizophrenia, and family/typical caregivers went out of town until Monday so left 2 other individuals to check in on patient, as well as him going to daycare/day treatment of some kind (note this is a transition from his norm, variation from his routine). Chart review revealed patient was seen by [facility] end of March 2018 for psychosis and bizarre behavior, he stayed in the hospital for three days, medications were adjusted and then he was discharged home. Head CT dated 02/20/2020 had neurodegenerative language which may be typical and normal for the aging process, however the point is it does often affect mental status and psychosis especially with a pre existing mental health condition such as paranoid schizophrenia as it can exacerbate symptoms. So though there is no acute concern there is still chronic concern which is important when considering medication management. His previous Head CTs going back from [id number] did not have the neurodegenerative language which may suggest new onset. Clinical Presentation: Altered Mental Status- almost catatonic like History of Paranoid Schizophrenia Concerns for neurodegenerative processes based on Head CT 02/20/2020 which is very different from previous Head CTs Medication recommendations made by the psychiatric medication provider Dr. Naya FLORES., includes: Discontinue Cogentin 1MG daily to curb tremor side effects often associated with antipsychotic medications Discontinue Vistaril 10MG four times a day for calming effect/anxiety Discontinue Zyprexa 20MG daily for psychosis/mood stabilization Decrease Remeron to 15MG at night for sleep Continue Depakote 500MG twice a day for mood stabilization Add Clonidine 0.1MG at night as needed for sleep Add Risperdal 0.25MG twice a day as needed for psychosis/agitation (try to avoid use if you can, DO NOT USE ANY OTHER ANTIPSYCHOTICS) AVOID ALL BENZODIAZEPINES Impression/Plan: At this time is is unclear if patient's presentation is all mental health. Have provided medication adjustments to take into consideration Head CT 02/20/2020 language that is consistent with neurodegenerative processes. It is important to follow this regimen and not utilize lots of antipsychotic and benzodiazepine type medications as they can cause and/or exacerbate mental health symptoms especially since patient has pre existing paranoid schizophrenia diagnosis. Will try to assess patient tomorrow after medications have been adjusted and further medical workup has been completed to rule out any medical issues contributing to current presentation. Consulted with Dr. Joseph regarding the management and care of patient. ED Physician made aware of recommendations.
--- NOTE | 2020-02-22 18:39 | ER Document Report ---
Doctor's Note Notes: 02/22/20 18:38 Patient's vital signs and previous labs, diagnostic images reviewed. Reviewed mental health notes, nurse's notes and previous providers notes. VSS. Pt is in no distress at this time. Denies any SI or HI. General: A&Ox3. Answers questions appropriately. Heart: RRR Lungs: CTAB Psych: Flat affect A/P: Continue monitoring and rec's per MH. Normal diet will likely discharge home to family
[2020-02-22] MEDS: MIRTAZAPINE 15 MG TABLET PO SCH (21:28)
[2020-02-23] MEDS: DIVALPROEX SODIUM 500 MG TAB.SR.24H PO SCH (10:43)
--- NOTE | 2020-02-23 16:59 | PSYCHOLOGICAL NOTE ---
Psych Note - Psych Note Date seen by psych provider: 02/23/20 Time seen by psych provider: 12:00 Psych Note: Reason for Consult:Catatonia Check in patient: Patient will not speak with clinician; however, it is noted he has spoke to some [facility] ED staff. He has been engaging in doing his daily living skills such as bathing, feeding himself, walking to the restroom unassisted and unprompted. Medication recommendations per [facility]'s contracted psychiatrist are as follows: please continue all medications Impression/Plan:Patient is cleared from acute psychiatric services. Patient has been restarted on his medications. While the patient will not speak with clinician , he has spoke to some [facility] ED staff. He has been caring for himself and has not engaged in any behaviours that put himself or others ar harm. Patient's caregiver went on vacation leaving him alone. during that time he stopped taking his medications and decompensated. Patient's guardian is DSS and they have been notified of the situation on how the patient presented upon arrival and that he is now ready for discharge (patient is cleared from both medical and behavioral health teams). The patient is recommended to continue his home medications. It is highly recommended that if the caregiver is going on vacation, the guardian ensures continued care for the patient during the caregivers absence. Dr Joseph was consulted on the care and management of this patient; attending physician is in agreement with recommendations and disposition.
[2020-02-23 17:37] VITALS: BP 144/96
--- NOTE | 2020-02-23 17:49 | ER Document Report ---
Doctor's Note Notes: 02/23/20 17:47 Patient is a 69-year-old male with a history of paranoid schizophrenia. Patient was evaluated by mental health staff and deemed appropriate for discharge. Patient's family member is at the bedside. She states that he is hard of hearing but does communicate when she writes questions when a piece of paper. She states that the patient goes through intermittent phases where he is acting like he is staring off into space. After writing down multiple questions patient did respond. He states he does not have questions or concerns. Family member appears to be very medical savvy with his history. She states to see psychiatry as well as Dr. Serna. She takes him to his doctor's appointments. Nursing staff states that they did assist him with a shower but that he was able to perform most of the task himself. Family deny questions in regards to him being discharged. They state they will be home with him.
== END 2020-02-23 17:45 | disposition home or self-care (01) ==
LOC: ER 15:30
DX: F20.0 Paranoid schizophrenia (principal); F06.1 Catatonic disorder due to known physiological condition; F91.9 Conduct disorder, unspecified; R41.82 Altered mental status, unspecified; I10 Essential (primary) hypertension; Z90.49 Acquired absence of other specified parts of digestive tract
CPT/HCPCS: 99285; 36415; 87040; 83605; 83735; 81001; 80307 ×3; 85025; 80053; 84484; 80164; 71045; 70450; A9270 ×7

== ENCOUNTER 2020-02-25 08:00 | Inpatient (IN) | payer MEDICARE, MEDICAID ==
[2020-02-25] MEDS ORDERED: NORMAL SALINE 1000 ML 1,000 ML IV ONE ×2 (08:10→08:15)
[2020-02-25 08:29] LABS: ABSOLUTE BASOPHILS # (AUTO) 0.1 10^3/uL (0.0-0.2); ABSOLUTE EOSINOPHILS # (AUTO) 0.1 10^3/uL (0.0-0.6); ABSOLUTE LYMPHOCYTES (AUTO) 2.3 10^3/uL (0.5-4.7); ABSOLUTE MONOCYTES (AUTO) 0.7 10^3/uL (0.1-1.4); ABSOLUTE NEUT (AUTO) 6.5 10^3/uL (1.7-8.2); BASOPHILS % (AUTO) 0.7 % (0-2); EOSINOPHILS % (AUTO) 0.8 % (0-6); HEMATOCRIT 43.7 % (37.9-51.0); HEMOGLOBIN 14.8 g/dL (13.5-17.0); LYMPHOCYTES % (AUTO) 24.1 % (13-45); MEAN CORPUSCULAR HEMOGLOBIN 31.9 pg (27.0-33.4); MEAN CORPUSCULAR VOLUME 94 fl (80-97); MONOCYTES % (AUTO) 7.1 % (3-13); PLATELET COUNT 307 10^3/uL (150-450); RED BLOOD COUNT 4.65 10^6/uL (4.35-5.55); SEGMENTED NEUTROPHILS % (AUTO) 67.3 % (42-78); TOTAL CELLS COUNTED % (AUTO) 100 %; WHITE BLOOD COUNT 9.6 10^3/uL (4.0-10.5)
[2020-02-25 08:47] LABS: ALBUMIN 3.8 g/dL (3.5-5.0); ALKALINE PHOSPHATASE 53 U/L (38-126); ASPARTATE AMINO TRANSFERASE 35 U/L (17-59); BILIRUBIN,DIRECT 0.1 mg/dL (0.0-0.4); BILIRUBIN,TOTAL 0.7 mg/dL (0.2-1.3); BLOOD UREA NITROGEN 20 mg/dL (7-20); CALCIUM 9.5 mg/dL (8.4-10.2); CARBON DIOXIDE 16 mmol/L (22-30); CHLORIDE 101 mmol/L (98-107); CREATINE KINASE 698 U/L (55-170); GLUCOSE 172 mg/dL (75-110); POTASSIUM 4.5 mmol/L (3.6-5.0); TOTAL PROTEIN 6.9 g/dL (6.3-8.2)
[2020-02-25 08:56] LABS: ANION GAP 22 (5-19)
[2020-02-25 08:59] LABS: CREATINE KINASE MB 3.28 ng/mL (<4.55); TROPONIN I 0.054 ng/mL
--- NOTE | 2020-02-25 09:24 | ER Document Report ---
ED Dizziness/Weakness - General Chief Complaint: Near Syncope Stated Complaint: SYNCOPE Time Seen by Provider: 02/25/20 08:14 Primary Care Provider: CHAD MENDOZA MD [Primary Care Provider] - Follow up as needed Mode of Arrival: Medic Information source: Emergency Med Personnel TRAVEL OUTSIDE OF THE [place] IN LAST 30 DAYS: No - HPI Notes: Patient is brought in by ambulance. Ambulance states that they were called out for shortness of breath. They state when they found the patient he was in A. fib with rapid ventricular response. Patient was then cardioverted x1 with a return to a normal sinus rhythm. They state patient had normal vital signs post cardioversion. Patient is hard of hearing and is not a good historian due to mental illness. Patient at this time denies any pain. He denies shortness of breath. There is been no known illness such as cough cold or congestion. No known vomiting or diarrhea. No known trauma. It is unknown when the shortness of breath started. Apparently it was severe at some point. It appeared to improve with the cardioversion. Relative arrived and gave further history. The relative states that she called the ambulance because she felt the patient was not as responsive as usual. She states that the patient was discharged from the hospital 2 days ago and has been in bed since that time. Patient has been stating that he does not feel good and has not gotten out of bed. She states today they made an appointment at a psychiatric facility and she was helping the patient get his coat on in the living room when patient turned white and his eyes were back in his head. She states patient then leaned back in the chair and was not responding. She states the patient also felt very cold. She states the patient has had a history of atrial fib in the past and has seen a dog breeder but she does not believe any other type of evaluation or work-up has been performed. She also states that the patient does have a history of "a problem with his testicles" but she does not know of any follow-up that has been obtained with urology. - Related Data Allergies/Adverse Reactions: No Known Allergies Allergy (Verified 02/20/20 15:54) Past Medical History - General Information source: Patient - Social History Smoking Status: Current Every Day Smoker Frequency of alcohol use: None - None known Drug Abuse: None - None known Family History: Reviewed & Not Pertinent - Past Medical History Cardiac Medical History: Reports: Hx Hypertension Endocrine Medical History: Denies: Hx Diabetes Mellitus Type 1, Hx Diabetes Mellitus Type 2 Renal/ Medical History: Denies: Hx Peritoneal Dialysis Musculoskeletal Medical History: Reports Hx Arthritis Psychiatric Medical History: Reports: Hx Depression, Hx Schizophrenia - Paranoid schizophrenia Past Surgical History: Reports: Hx Appendectomy, Hx Cholecystectomy - Immunizations Hx Diphtheria, Pertussis, Tetanus Vaccination: Yes Hx Pneumococcal Vaccination: 06/08/11 Review of Systems - Review of Systems -: Yes ROS unobtainable due to patient's medical condition - Cannot obtain review of symptoms due to patient's mental status. Physical Exam - Vital signs Vitals: Resp BP 15 72/50 L 02/25/20 08:06 02/25/20 08:06 Interpretation: Hypotensive - General General appearance: Alert - HEENT Head: Normocephalic, Atraumatic Eyes: Normal Pupils: PERRL - Respiratory Respiratory status: No respiratory distress Chest status: Nontender Breath sounds: Normal Chest palpation: Normal - Cardiovascular Rhythm: Regular Heart sounds: Normal auscultation Murmur: No - Abdominal Inspection: Normal Distension: No distension Bowel sounds: Normal Tenderness: Nontender Organomegaly: No organomegaly - Genitourinary Tenderness: Nontender Scrotum: Other - Patient's left and right testicles are both enlarged however the left is significantly larger. It appears nontender but is firm. - Back Back: Normal, Nontender - Extremities General upper extremity: Normal inspection, Nontender, Normal color, Normal ROM, Normal temperature General lower extremity: Normal inspection, Nontender, Normal color, Normal ROM, Normal temperature. No: Felipa's sign - Neurological [place] Coma Scale Eye Opening: Spontaneous Nishant Coma Scale Verbal: Confused Nishant Coma Scale Motor: Obeys Commands Nishant Coma Scale Total: 14 Motor strength normal: LUE, RUE, LLE, RLE Sensory: Normal - Psychological Associated symptoms: Flat affect, Psychomotor depression - Skin Skin Temperature: Warm Skin Moisture: Dry Skin Color: Normal Course - Re-evaluation Re-evalutation: 02/25/20 12:28 Patient presented after a syncopal episode at home. Patient was also found to be in rapid A. fib and was cardioverted at the scene by EMS. Patient arrived hypotensive. Patient is not a good historian. On evaluation patient has some renal insufficiency, some mild rhabdomyolysis, a pulmonary embolism as well. He will be admitted for rehydration as well as treatment of the pulmonary embolism and cardiac consultation. - Vital Signs Vital signs: Temp Pulse Resp BP Pulse Ox 15 116/72 100 02/25/20 11:31 02/25/20 11:31 02/25/20 11:01 - Laboratory Result Diagrams: 02/25/20 08:15 02/25/20 08:15 Laboratory results interpreted by me: 02/25/20 02/25/20 08:15 08:15 Carbon Dioxide 16 L Anion Gap 22 H Creatinine 1.72 H Est GFR ( Amer) 48 L Est GFR (MDRD) Non-Af 40 L Glucose 172 H Creatine Kinase 698 H Valproic Acid 39.6 L - Diagnostic Test Radiology reviewed: Image reviewed, Reports reviewed - EKG Interpretation by Me EKG shows normal: Sinus rhythm Rate: Normal - 98 Rhythm: NSR [place]/QRS: LBBB When compared to previous EKG there are: No significant change Critical Care Note - Critical Care Note Total time excluding time spent on procedures (mins): 50 Comments: 50 minutes of critical care time were spent on this patient with hypotension and pulmonary embolism. Discharge - Discharge Clinical Impression: Atrial fibrillation with RVR, Renal insufficiency, Hydrocele in adult, Person under investigation for COVID-19 Pulmonary embolism Qualifiers: Pulmonary embolism type: unspecified Chronicity: acute Acute cor pulmonale pr esence: without acute cor pulmonale Qualified Code(s): I26.99 - Other pulmonary embolism without acute cor pulmonale Rhabdomyolysis Qualifiers: Rhabdomyolysis type: non-traumatic Qualified Code(s): M62.82 - Rhabdomyolysis Condition: Serious Disposition: ADMITTED INPATIENT Admitting Provider: Edgar (Hospitalist) - valeri to admit Unit Admitted: IMCU Referrals: CHAD MENDOZA MD [Primary Care Provider] - Follow up as needed
--- NOTE | 2020-02-25 10:35 | RADIOLOGY REPORT (SQ) ---
EXAM DESCRIPTION: CTA CHEST IMAGES COMPLETED DATE/TIME: 02/25/2020 10:15 am REASON FOR STUDY: sob/tachycardia/low bp COMPARISON: 11/01/2016. TECHNIQUE: CT scan of the chest performed using helical scanning technique with dynamic intravenous contrast injection. Images reviewed with lung, soft tissue and bone windows. Reconstructed coronal and sagittal MPR images reviewed. Additional 3 dimensional post-processing performed to develop Maximal Intensity Projection images (AL P). All images stored on PACS. All CT scanners at this facility use dose modulation, iterative reconstruction, and/or weight based d osing when appropriate to reduce radiation dose to as low as reasonably achievable (ALARA). [facility]: Dose Right [facility]: CareDose [facility]: Dose Right [facility]: Teradose 4D [facility]: Brighter Dental Care CONTRAST TYPE AND DOSE: contrast/concentration: Isovue 300.00 mmol/ml; Total Contrast Delivered: 60. 0 ml; Total Saline Delivered: 77.0 ml Contrast bolus adequate for pulmonary arteries and aorta. RENAL FUNCTION: BUN 20 creatinine 1.72. RADIATION DOSE: CT Rad equipment meets quality standard of care and radiation dose reduction techniq ues were employed. CTDIvol: 10.2 - 53.5 mGy. DLP: 433 mGy-cm. . LIMITATIONS: None. FINDINGS: LUNGS AND PLEURA: 1 cm nodule in the inferior right upper lobe (axial series 4, image 31). Small calcified nodules in the right middle lobe. Scarring in the lung bases. No pleural effusion s or pleural calcifications. AORTA AND GREAT VESSELS: No aneurysm. Contrast bolus not optimized for the aorta. HEART: No pericardial effusion. No significant coronary artery calcifications. PULMONARY ARTERIES: There is a thrombus in a single arterial branch to the right middle lobe (axial s eries 3, image 65). HILAR AND MEDIASTINAL STRUCTURES: No identified masses or abnormal nodes. HARDWARE: None in the chest. UPPER ABDOMEN: No significant findings. Limited exam. THYROID AND OTHER SOFT TISSUES: No masses. No adenopathy. BONES: No acute or significant finding. 3D MIPS: Confirm above findings. OTHER: No other significant finding. IMPRESSION: 1. THROMBUS IN A SINGLE ARTERIAL BRANCH TO THE RIGHT MIDDLE LOBE. 2. 1 CM NODULE IN THE INFERIOR RIGHT UPPER LOBE. 3. NO OTHER ACUTE FINDINGS. COMMENT: Quality ID # [id number]: Final reports with documentation of one or more dose reduction techniques (e.g., Automated exposure control, adjustment of the mA and/or kV according to patient size, use of iterative reconstruction technique) TECHNICAL DOCUMENTATION: JOB ID: [id number] 2010 [employer]- All Rights Reserved Reading location - IP/workstation name: [email or web address]
--- NOTE | 2020-02-25 12:21 | RADIOLOGY REPORT (SQ) ---
EXAM DESCRIPTION: U/S SCROTUM W/O DOPPLER IMAGES COMPLETED DATE/TIME: 02/25/2020 12:02 pm REASON FOR STUDY: swelling COMPARISON: 10/31/2019 TECHNIQUE: Static and realtime aguilera scale imaging of the scrotum and testes. Selected color Doppler and spectral images recorded to document blood flow. LIMITATIONS: None. FINDINGS: RIGHT: TESTICLE: Normal size, 3.8 cm. Normal echotexture. Normal blood flow. No mass. EPIDIDYMIS: No inflammation. There are some small epididymal cysts. HYDROCELE OR VARICOCELE: Yes. 5.3 cm. HERNIA OR EXTRA-TESTICULAR MASS: No. OTHER: No other significant finding. LEFT: TESTICLE: Normal size, 3.9 cm. Normal echotexture. Normal blood flow. No mass. EPIDIDYMIS: No inflammation. There is a 5 mm epididymal cyst. HYDROCELE OR VARICOCELE: Yes. 6.1 cm. HERNIA OR EXTRA-TESTICULAR MASS: No. OTHER: No other significant finding. IMPRESSION: Bilateral hydroceles. Bilateral epididymal cysts. Normal testes with normal blood flow . No evidence of epididymitis. TECHNICAL DOCUMENTATION: JOB ID: [id number] 2010 [employer]- All Rights Reserved Reading location - IP/workstation name: [email or web address]
[2020-02-25] MEDS ORDERED: HEPARIN SOD (PORCINE) 1,000 UNIT/ML 10 ML VIAL IV ONE (12:36)
[2020-02-25] MEDS ORDERED: HEPARIN SODIUM,PORCINE/D5W 25,000 UNIT/250 ML RTUINJ IV PRN ×2 (12:36→15:11)
[2020-02-25 12:47] LABS: APPEARANCE,URINE CLOUDY; BILIRUBIN,URINE NEGATIVE (NEGATIVE); COLOR,URINE YELLOW; GLUCOSE, URINE NEGATIVE (NEGATIVE); KETONES,URINE 20 mg/dL (NEGATIVE); LEUKOCYTE ESTERASE,URINE SMALL (NEGATIVE); NITRITE,URINE NEGATIVE (NEGATIVE); PROTEIN,URINE 30 mg/dL (NEGATIVE); URINE SPECIFIC GRAVITY 1.026
[2020-02-25 14:42] LABS: INTERNATIONAL RATION (INR) 1.24; PROTHROMBIN TIME 15.8 SEC (11.4-15.4)
[2020-02-25] MEDS ORDERED: ACETAMINOPHEN 325 MG TABLET PO PRN (14:55)
[2020-02-25] MEDS ORDERED: ALBUTEROL SULFATE 0.083% NEB 2.5 MG/3 ML AMPUL NEB PRN (14:55)
[2020-02-25] MEDS ORDERED: PROMETHAZINE HCL INJ 25 MG/1 ML VIAL IV PRN (15:04)
[2020-02-25] MEDS ORDERED: MAG HYDROX/AL HYDROX/SIMETH SUSP 30 ML UDCUP PO PRN (15:04)
[2020-02-25] MEDS ORDERED: MAGNESIUM HYDROXIDE SUSP 30 ML UDCUP PO PRN (15:04)
[2020-02-25] MEDS ORDERED: HYDROXYZINE HCL 10 MG TABLET PO PRN (15:06)
[2020-02-25] MEDS ORDERED: RISPERIDONE 0.25 MG TABLET PO PRN (15:10)
--- NOTE | 2020-02-25 15:34 | PDOC H&P ---
History of Present Illness Admission Date/PCP: 02/25/20 13:17 CHAD MENDOZA Patient complains of: near syncope History of Present Illness: JADA SANCHEZ is a 69 year old male with a past medical history significant for schizophrenia, non-STEMI, hypertension, and hyperlipidemia who recently was in the emergency department for a 3-day social hold after being evaluated for altered mental status related to medication noncompliance. At time of discharge, the patient reportedly stated that he felt unwell and did not want to leave the hospital but was unable to specify his symptoms further. Per the patient's sister, whom he lives with, the patient has continued to have nonspecific complaints of feeling unwell. She has noted that he has been more fatigued, intermittently shivering though without fever, with decreased appetite and a hoarse sounding voice. He presented to the emergency department today by EMS after near syncopal episode at home. He was found to be in atrial fibrillation RVR and cardioverted on scene. Reviewed EMS telemetry strips; shows a narrow complex tachycardia with a rate of 177. Following cardioversion, he was found to be in sinus rhythm with a left bundle branch block. Further evaluation in the emergency department revealed initial hypotension that responded to IV fluids and tachypnea (RR30s). CBC is unremarkable, PT/INR are acceptable (INR 1.24), LOUISE (BUN 20, creatinine 1.72), metabolic acidosis (anion gap of 22 and bicarb 16), CK 698, indeterminately elevated troponin of 0.054, normal lactic acid, urinalysis notable for ketones, protein, blood. Subtherapeutic valproic acid level (though no Hx of seizures). CTA chest revealed a right middle lobe pulmonary embolus and 1 cm nodule to the inferior right upper lobe but no other acute findings. He was provided IV fluid boluses and placed on a heparin drip. He is referred to the hospital service for further evaluation management of the above-stated complaints findings. Past Medical History Cardiac Medical History: Reports: Myocardial Infarction, Hyperlipidema, Hypertension Denies: Congestive Heart Failure Pulmonary Medical History: Reports: None EENT Medical History: Reports: None Neurological Medical History: Reports: None Endocrine Medical History: Denies: Diabetes Mellitus Type 1, Diabetes Mellitus Type 2, Hypothyroidism, Obesity Renal/ Medical History: Reports: None Malignancy Medical History: Reports: None GI Medical History: Reports: None Musculoskeltal Medical History: Reports: Arthritis Psychiatric Medical History: Reports: Depression, General Anxiety Disorder, Other - Schizophrenia Traumatic Medical History: Reports: None Hematology: Reports: None Infectious Medical History: Reports: None Past Surgical History Past Surgical History: Reports: Appendectomy, Cholecystectomy Social History Information Source: Relative, [facility] Records Lives with: Family Smoking Status: Former Smoker Frequency of Alcohol Use: None Hx Recreational Drug Use: Yes Drugs: None Hx Prescription Drug Abuse: No - Advance Directive Resuscitation Status: Full Code Surrogate healthcare decision maker:: [facility] Family History Family History: Reviewed & Not Pertinent Parental Family History Reviewed: Yes Children Family History Reviewed: Yes Sibling(s) Family History Reviewed.: Yes Medication/Allergy Home Medications: Lisinopril [Zestril] 10 mg PO Q12 11/01/16 Metoprolol Tartrate [Lopressor 25 mg Tablet] 25 mg PO Q12 11/01/16 Olanzapine [Zyprexa] 20 mg PO QHS 11/01/16 Benztropine Mesylate [Cogentin 1 mg Tablet] 1 mg PO DAILY 30 Days #30 tablet 04/19/18 Divalproex Sodium [Depakote ER 500 mg Tab.sr] 500 mg PO Q12 #60 tab.sr.24h 04/19/18 Aspirin [Adult Low Dose Aspirin EC] 81 mg PO DAILY 02/25/20 Atorvastatin Calcium [Lipitor 20 mg Tablet] 20 mg PO QHS 02/25/20 Ergocalciferol (Vitamin D2) [Drisdol 50,000 unit (1.25MG) Capsule] 50,000 unit PO JACOB 02/25/20 Hydroxyzine HCl [Atarax 10 mg Tablet] 10 mg PO BIDP PRN MDD 40MG 02/25/20 Mirtazapine [Remeron 15 mg Tablet] 30 mg PO QHS 02/25/20 Allergies/Adverse Reactions: No Known Allergies Allergy (Verified 02/20/20 15:54) Review of Systems ROS unobtainable: Due to mental status Integumentary: ABSENT: rash, wounds Physical Exam Vital Signs: Temp Pulse Resp BP Pulse Ox 98.5 F 19 124/85 100 02/25/20 13:01 02/25/20 14:01 02/25/20 14:01 02/25/20 11:01 Intake & Output 02/24/20 02/25/2020 06:59 06:59 06:59 Intake Total 1999 Balance 2000 Weight 63.3 kg General appearance: PRESENT: no acute distress, thin, well-developed, well- nourished Head exam: PRESENT: atraumatic, normocephalic Eye exam: PRESENT: conjunctiva pink, EOMI, PERRLA. ABSENT: scleral icterus Mouth exam: PRESENT: dry mucosa, tongue midline Respiratory exam: PRESENT: clear to auscultation esme, symmetrical, unlabored. ABSENT: rales, rhonchi, wheezes Cardiovascular exam: PRESENT: RRR, +S1, +S2. ABSENT: diastolic murmur, rubs, systolic murmur Pulses: PRESENT: normal dorsalis pedis pul Vascular exam: PRESENT: normal capillary refill GI/Abdominal exam: PRESENT: normal bowel sounds, soft. ABSENT: distended, guarding, mass, organolmegaly, rebound, tenderness Rectal exam: PRESENT: deferred Extremities exam: PRESENT: full ROM. ABSENT: calf tenderness, clubbing, pedal edema Neurological exam: PRESENT: alert, awake, CN II-XII grossly intact, other - Nonverbal at baseline. ABSENT: motor sensory deficit Skin exam: PRESENT: dry, intact, warm. ABSENT: cyanosis, rash Results Laboratory Results: 02/25/20 08:15 02/25/20 08:15 02/25/20 02/25/20 02/25/20 08:15 08:15 10:55 WBC 9.6 RBC 4.65 Hgb 14.8 Hct 43.7 MCV 94 MCH 31.9 MCHC 34.0 RDW 13.0 Plt Count 307 Seg Neutrophils % 67.3 Sodium 138.6 Potassium 4.5 Chloride 101 Carbon Dioxide 16 L Anion Gap 22 H BUN 20 Creatinine 1.72 H Est GFR ( Amer) 48 L Glucose 172 H Lactic Acid 1.6 Calcium 9.5 Total Bilirubin 0.7 AST 35 Alkaline Phosphatase 53 Total Protein 6.9 Albumin 3.8 Urine Color Urine Appearance Urine pH Ur Specific [place] Urine Protein Urine Glucose (UA) Urine Ketones Urine Blood Urine Nitrite Ur Leukocyte Esterase Urine WBC (Auto) Urine RBC (Auto) 02/25/20 12:15 WBC RBC Hgb Hct MCV MCH MCHC RDW Plt Count Seg Neutrophils % Sodium Potassium Chloride Carbon Dioxide Anion Gap BUN Creatinine Est GFR ( Amer) Glucose Lactic Acid Calcium Total Bilirubin AST Alkaline Phosphatase Total Protein Albumin Urine Color YELLOW Urine Appearance CLOUDY Urine pH 5.0 Ur Specific [place] 1.026 Urine Protein 30 H Urine Glucose (UA) NEGATIVE Urine Ketones 20 H Urine Blood MODERATE H Urine Nitrite NEGATIVE Ur Leukocyte Esterase SMALL H Urine WBC (Auto) 39 Urine RBC (Auto) 26 02/25/20 02/25/20 08:15 08:15 Creatine Kinase 698 H CK-MB (CK-2) 3.28 Troponin I 0.054 Impressions: Chest/Abdomen CTA 02/25/20 08:46 IMPRESSION: 1. THROMBUS IN A SINGLE ARTERIAL BRANCH TO THE RIGHT MIDDLE LOBE. 2. 1 CM NODULE IN THE INFERIOR RIGHT UPPER LOBE. 3. NO OTHER ACUTE FINDINGS. Scrotum Ultrasound 02/25/20 10:01 IMPRESSION: Bilateral hydroceles. Bilateral epididymal cysts. Normal testes with normal blood flow. No evidence of epididymitis. Assessment and Plan - Diagnosis (1) Acute kidney injury Is this a current diagnosis for this admission?: Yes Plan: Prerenal; multifactorial secondary to dehydration and hypotension (following A. fib RVR) Patient is already received 2 L normal saline bolus. Continue generous IV fluids. Avoid nephrotoxic medications as able. Encourage p.o. intake. Strict I&O's. Follow-up chemistry. (2) Atrial fibrillation with RVR Is this a current diagnosis for this admission?: Yes Plan: Per EMS. Reviewed strips provided by EMS service; he was found to have a narrow complex tachycardia with a rate of 177. Cardioverted on scene without trial of medications. Currently in sinus rhythm with LBBB (prior history of same) We will continue monitor on telemetry. Continue home dose metoprolol; adjust dose as indicated. Currently on a heparin drip for acute pulmonary embolus. (3) Metabolic acidosis Is this a current diagnosis for this admission?: Yes Plan: Likely secondary to dehydration and acute kidney injury. Anion gap 22, bicarb 16. Lactic acid 1.6. Patient has already received IV fluid bolus; will continue generous IV fluids. Follow-up chemistries. (4) Pulmonary embolism Qualifiers: Pulmonary embolism type: unspecified Chronicity: acute Acute cor pulmonale presence: without acute cor pulmonale Qualified Code(s): I26.99 - Other pulmonary embolism without acute cor pulmonale Is this a current diagnosis for this admission?: Yes Plan: Unprovoked; patient did spend 3 days in the emergency department as a social hold with likely increased sedentary behavior as compared to baseline. The sister is aware of some cardiac history but is unable to confirm whether or not the patient has had atrial fibrillation in the past. Currently maintaining oxygen saturations on room air. Heparin drip per protocol. Pending COVID-19 results; transition to DOAC with plan to discharge to home. (5) Rhabdomyolysis Qualifiers: Rhabdomyolysis type: non-traumatic Qualified Code(s): M62.82 - Rhabdomyolysis Is this a current diagnosis for this admission?: Yes Plan: Mild rhabdomyolysis secondary to dehydration. Has received 2 L normal saline bolus; will continue generous IV fluids. Follow-up chemistries. (6) Schizophrenia Qualifiers: Schizophrenia type: paranoid schizophrenia Qualified Code(s): F20.0 - Paranoid schizophrenia Is this a current diagnosis for this admission?: Yes Plan: We will continue medication regiment as was recommended by mental health service during his recent emergency department stay. Continues on clonidine, Depakote, Remeron, and as needed Risperdal. Supportive care. (7) Hypotension Qualifiers: Hypotension type: unspecified hypotension type Qualified Code(s): I95.9 - Hypotension, unspecified Is this a current diagnosis for this admission?: Yes Plan: Resolved following IV fluids. Secondary to dehydration. (8) Suspected COVID-19 virus infection Is this a current diagnosis for this admission?: Yes Plan: Patient is high risk for exposure having been a social holding the emergency department x3 days and otherwise participates in daily adult daycare at the [facility]. Per sister, patient has had 4 to 5 days of feeling unwell; noted to have decreased appetite, increased fatigue, and a hoarse sounding voice. She also has noted that he has been shivering but has not checked temperature. Presents with pulmonary embolus, atrial fibrillation, LOUISE. We will obtain COVID testing. Provide supplemental oxygen as needed maintain saturations greater than 89%. As needed nebulizer treatments. Zinc, vitamin D, vitamin C, and melatonin supplementation. Encourage pulmonary toilet. Isolation precautions. - Time Time Spent with patient: 35 or more minutes Medications reviewed and adjusted accordingly: Yes Anticipated Discharge Disposition: Home, Self Care Anticipated Discharge Timeframe: within 48 hours
[2020-02-25 16:11] LABS: URINE AMPHETAMINES SCREEN NEGATIVE; URINE BARBITURATES SCREEN NEGATIVE; URINE BENZODIAZEPINES SCREEN NEGATIVE; URINE COCAINE SCREEN NEGATIVE; URINE MARIJUANA (THC) SCREEN NEGATIVE; URINE METHADONE SCREEN NEGATIVE; URINE PHENCYCLIDINE SCREEN NEGATIVE
--- NOTE | 2020-02-25 16:47 | EKG REPORT ---
SEVERITY:- ABNORMAL ECG - SINUS RHYTHM LEFT BUNDLE BRANCH BLOCK : Confirmed by: Arsen Pat MD 25-Feb-2020 16:46:06
[2020-02-25] MEDS: NORMAL SALINE 1000 ML 1,000 ML IV PRN (18:07)
[2020-02-25] MEDS: DOCUSATE SODIUM 100 MG CAPSULE PO SCH (18:08)
[2020-02-25] MEDS: ASCORBIC ACID 500 MG TABLET PO SCH (18:08)
[2020-02-25] MEDS ORDERED: MIRTAZAPINE 15 MG TABLET PO SCH (22:00)
[2020-02-25] MEDS: METOPROLOL TARTRATE 25 MG TABLET PO SCH ×2 (22:43→22:58)
[2020-02-25] MEDS: ATORVASTATIN CALCIUM 20 MG TABLET PO SCH ×2 (22:43→22:57)
[2020-02-25] MEDS: LISINOPRIL 10 MG TABLET PO SCH ×2 (22:43→22:58)
[2020-02-25] MEDS: DIVALPROEX SODIUM 500 MG TAB.SR.24H PO SCH ×2 (22:43→22:57)
[2020-02-25] MEDS: MIRTAZAPINE 15 MG TABLET PO SCH ×2 (22:44→22:58)
[2020-02-25] MEDS: CLONIDINE HCL 0.1 MG TABLET PO SCH ×2 (22:44→22:57)
[2020-02-26] MEDS: NORMAL SALINE 1000 ML 1,000 ML IV PRN ×3 (00:06→19:45)
[2020-02-26 05:59] LABS: HEMATOCRIT 33.1 % (37.9-51.0); HEMOGLOBIN 11.4 g/dL (13.5-17.0); MEAN CORPUSCULAR HEMOGLOBIN 31.5 pg (27.0-33.4); MEAN CORPUSCULAR HGB CONC 34.5 g/dL (32.0-36.0); MEAN CORPUSCULAR VOLUME 91 fl (80-97); PLATELET COUNT 195 10^3/uL (150-450); RED BLOOD COUNT 3.63 10^6/uL (4.35-5.55); RED CELL DISTRIBUTION WIDTH 12.9 % (11.5-14.0); WHITE BLOOD COUNT 5.9 10^3/uL (4.0-10.5)
[2020-02-26 06:20] LABS: ANION GAP 9 (5-19); BLOOD UREA NITROGEN 24 mg/dL (7-20); CALCIUM 8.1 mg/dL (8.4-10.2); CARBON DIOXIDE 20 mmol/L (22-30); CHLORIDE 112 mmol/L (98-107); CREATINE KINASE 255 U/L (55-170); GLUCOSE 79 mg/dL (75-110); POTASSIUM 4.2 mmol/L (3.6-5.0)
[2020-02-26] MEDS ORDERED: HEPARIN SOD (PORCINE) 1,000 UNIT/ML 10 ML VIAL ONE (06:36)
[2020-02-26] MEDS ORDERED: HEPARIN SOD (PORCINE) 5,000 UNIT/ML 1 ML VIAL SUBCUT ONE (07:00)
[2020-02-26] MEDS ORDERED: BENZTROPINE MESYLATE 1 MG TABLET PO SCH (10:00)
[2020-02-26] MEDS: DOCUSATE SODIUM 100 MG CAPSULE PO SCH ×2 (11:06→17:07)
[2020-02-26] MEDS: ASPIRIN 81 MG TABLET, ENT COATED PO SCH (11:07)
[2020-02-26] MEDS: METOPROLOL TARTRATE 25 MG TABLET PO SCH ×2 (11:07→22:46)
[2020-02-26] MEDS: DIVALPROEX SODIUM 500 MG TAB.SR.24H PO SCH ×2 (11:07→22:46)
[2020-02-26] MEDS: ASCORBIC ACID 500 MG TABLET PO SCH ×2 (11:08→17:07)
[2020-02-26] MEDS: CHOLECALCIFEROL (D3) 1,000 UNIT (25 MCG) TABLET PO SCH (11:08)
[2020-02-26] MEDS: LISINOPRIL 10 MG TABLET PO SCH ×3 (11:08→23:38)
[2020-02-26] MEDS: ZINC SULFATE 220 MG CAPSULE PO SCH (11:08)
--- NOTE | 2020-02-26 13:46 | PDOC PROGRESS REPORT ---
Subjective Progress Note for:: 02/26/20 Subjective:: JADA SANCHEZ is a 69 year old male with a past medical history significant for schizophrenia, non-STEMI, hypertension, and hyperlipidemia who was admitted 02/25/20 with LOUISE, rhabdomyolysis and PE. Patient was seen on afternoon rounds. He is found resting in bed, comfortably, on room air. He was awake and would occasionally make eye contact but was nonverbal. I did attempt to communicate with him through writing as his family member had stated this works effectively. Unfortunately, I was unable to determine whether or not he was understanding my questions or responding appropriately. He does appear to be comfortable and is not noted to be in any acute distress. ROS is otherwise limited. Per nursing, patient has been refusing all medications and p.o. intake today. Reason For Visit: LOUISE,AFIB RVR,PE Physical Exam Vital Signs: Temp Pulse Resp BP Pulse Ox 98.3 F 77 16 150/91 H 94 02/26/20 10:00 02/26/20 07:00 02/26/20 03:49 02/26/20 05:17 02/26/20 03:49 Intake & Output 02/25/20 02/26/20 02/27/20 06:59 06:59 06:59 Intake Total 2897 242 Balance 2897 242 Weight 63.3 kg General appearance: PRESENT: no acute distress, thin, well-developed, well- nourished Head exam: PRESENT: atraumatic, normocephalic Eye exam: PRESENT: conjunctiva pink, EOMI, PERRLA. ABSENT: scleral icterus Mouth exam: PRESENT: moist, tongue midline Teeth exam: PRESENT: poor dentation Respiratory exam: PRESENT: clear to auscultation esme, symmetrical, unlabored. ABSENT: rales, rhonchi, wheezes Cardiovascular exam: PRESENT: RRR, +S1, +S2. ABSENT: diastolic murmur, rubs, systolic murmur Pulses: PRESENT: normal dorsalis pedis pul Vascular exam: PRESENT: normal capillary refill Extremities exam: PRESENT: full ROM. ABSENT: calf tenderness, clubbing, pedal edema, tenderness, +1 edema Neurological exam: PRESENT: alert, awake, aphasic, other - Does not answer questions or follow directions. Does make eye contact and occasionally shakes his head 'no'. ABSENT: motor sensory deficit Psychiatric exam: PRESENT: appropriate affect, normal mood. ABSENT: homicidal ideation, suicidal ideation Skin exam: PRESENT: dry, intact, warm. ABSENT: cyanosis, rash Results Laboratory Results: 02/26/20 04:31 02/26/20 04:31 02/25/20 02/26/20 02/26/20 14:26 04:31 04:31 WBC 5.9 RBC 3.63 L Hgb 11.4 L D Hct 33.1 L MCV 91 MCH 31.5 MCHC 34.5 RDW 12.9 Plt Count 195 Sodium 141.0 Potassium 4.2 Chloride 112 H Carbon Dioxide 20 L Anion Gap 9 BUN 24 H Creatinine 1.07 Est GFR ( Amer) > 60 Glucose 79 Calcium 8.1 L TSH 1.76 02/25/20 02/25/20 02/25/20 08:15 08:15 18:40 Creatine Kinase 698 H CK-MB (CK-2) 3.28 Troponin I 0.054 0.041 02/26/20 02/26/20 00:30 04:31 Creatine Kinase 255 H CK-MB (CK-2) Troponin I 0.033 Impressions: Chest/Abdomen CTA 02/25/20 08:46 IMPRESSION: 1. THROMBUS IN A SINGLE ARTERIAL BRANCH TO THE RIGHT MIDDLE LOBE. 2. 1 CM NODULE IN THE INFERIOR RIGHT UPPER LOBE. 3. NO OTHER ACUTE FINDINGS. Scrotum Ultrasound 02/25/20 10:01 IMPRESSION: Bilateral hydroceles. Bilateral epididymal cysts. Normal testes with normal blood flow. No evidence of epididymitis. Assessment and Plan - Diagnosis (1) Acute kidney injury Is this a current diagnosis for this admission?: Yes Plan: Improved; Cr 1.72/BUN 20 -> 1.07/24 Prerenal; multifactorial secondary to dehydration and hypotension (following A. fib RVR) Continue generous IV fluids. Avoid nephrotoxic medications as able. Encourage p.o. intake. Strict I&O's. Follow-up chemistry. (2) Atrial fibrillation with RVR Is this a current diagnosis for this admission?: Yes Plan: Per EMS. Reviewed strips provided by EMS service; he was found to have a narrow complex tachycardia with a rate of 177. Cardioverted on scene without trial of medications. Currently in sinus rhythm with LBBB (prior history of same) Monitor on telemetry; no further arrhythmias noted. Continue home dose metoprolol; adjust dose as indicated. (3) Metabolic acidosis Is this a current diagnosis for this admission?: Yes Plan: Improved; Anion gap 22/bicarb 16-> Anion gap 9/Bicarb 20. Likely secondary to dehydration and acute kidney injury. Lactic acid 1.6. Patient has already received IV fluid bolus; will continue generous IV fluids. Follow-up chemistries. (4) Pulmonary embolism Qualifiers: Pulmonary embolism type: unspecified Chronicity: acute Acute cor pulmonale presence: without acute cor pulmonale Qualified Code(s): I26.99 - Other pulmonary embolism without acute cor pulmonale Is this a current diagnosis for this admission?: Yes Plan: Unprovoked; patient did spend 3 days in the emergency department as a social hold with likely increased sedentary behavior as compared to baseline. The sister is aware of some cardiac history but is unable to confirm whether or not the patient has had atrial fibrillation in the past. Currently maintaining oxygen saturations on room air. Initially on Heparin drip per protocol; unfortunately, have not been able to obtain therapeutic levels. Discussed with the patients Paulo GUERRA. Discussed pros/cons of Xarelto v Eliquis v Lovenox r/t patient's ongoing noncompliance with oral medications. Ms. Duong elected Eliquis as twice daily dosing would increase likelihood patient would receive some anticoagulation benefit and as she did not feel that caregivers would be capable of Lovenox administration. Advised Ms. Duong that intermittent complaince w/ oral medication would result in subtherapeutic treatment and possible lead to progression/worsening/reoccurrence of pulmonary emboli. She expressed understanding and confirmed her decision. Will d/c heparin gtt and provide full dose Lovenox while in house. Start Eliquis at discharge. (5) Rhabdomyolysis Qualifiers: Rhabdomyolysis type: non-traumatic Qualified Code(s): M62.82 - Rhabdomyol ysis Is this a current diagnosis for this admission?: Yes Plan: Improved; CK 698-> 255 Mild rhabdomyolysis secondary to dehydration. Continue generous IV fluids. Encourage po fluids Follow-up chemistries. (6) Schizophrenia Qualifiers: Schizophrenia type: paranoid schizophrenia Qualified Code(s): F20.0 - Paranoid schizophrenia Is this a current diagnosis for this admission?: Yes Plan: We will continue medication regiment as was recommended by mental health service during his recent emergency department stay. Continues on clonidine, Depakote, Remeron, and as needed Risperdal. Spoke with Paulo GUERRA; she requested that patient be transitioned to patch or IM depot injection. Attempted to call the patient mental health provider, Dr. Nunez, at [facility]. Left message. Will consult in house health services. Supportive care. (7) Hypotension Qualifiers: Hypotension type: unspecified hypotension type Qualified Code(s): I95.9 - Hypotension, unspecified Is this a current diagnosis for this admission?: Yes Plan: Resolved following IV fluids. Secondary to dehydration. (8) Suspected COVID-19 virus infection Is this a current diagnosis for this admission?: Yes Plan: Patient is high risk for exposure having been a social holding the emergency department x3 days and otherwise participates in daily adult daycare at the [facility]. Per sister, patient has had 4 to 5 days of feeling unwell; noted to have decreased appetite, increased fatigue, and a hoarse sounding voice. She also has noted that he has been shivering but has not checked temperature. Presents with pulmonary embolus, atrial fibrillation, LOUISE. We will obtain COVID testing. Provide supplemental oxygen as needed maintain saturations greater than 89%. As needed nebulizer treatments. Zinc, vitamin D, vitamin C, and melatonin supplementation. Encourage pulmonary toilet. Isolation precautions. - Time Time Spent with patient: 25-34 minutes Medications reviewed and adjusted accordingly: Yes Anticipated Discharge Disposition: Home, Self Care Anticipated Discharge Timeframe: within 24 hours
[2020-02-26] MEDS: ENOXAPARIN SODIUM INJ 80 MG/0.8 ML DISP.SYRIN SUBCUT SCH (16:00)
[2020-02-26] MEDS ORDERED: APIXABAN 5 MG TABLET PO SCH (18:00)
--- NOTE | 2020-02-26 19:01 | EKG REPORT ---
SEVERITY:- ABNORMAL ECG - SINUS RHYTHM VENTRICULAR PREMATURE COMPLEX PROBABLE LVH WITH SECONDARY REPOL ABNRM : Confirmed by: Arsen Pat MD 26-Feb-2020 19:01:08
--- NOTE | 2020-02-26 20:27 | RADIOLOGY REPORT (SQ) ---
EXAM DESCRIPTION: CT HEAD WITHOUT IV CONTRAST COMPLETED DATE/TME: 02/26/2020 00:00 CLINICAL HISTORY: 69 years, Male, AMS COMPARISON: CT from 02/20/2020 and 11/01/2016. TECHNIQUE: Axial images without IV contrast. Sagittal coronal reconstruction. This exam was performed according to our departmental dose-optimization program, which includes automated exposure control, adjustment of the mA and/or kV according to patient size and/or use of iterative reconstruction technique.. Images stored on PACS. FINDINGS: [id number] central and cortical atrophy. No acute intra-axial or extra-axial abnormalities. Mild empty sella. [id number] bilateral ethmoid and right frontal sinus disease increased since recent study. Chronic retention cyst in the inferior left maxillary sinus. Mastoid air cells and bony calvarium are unremarkable. IMPRESSION: 1. Mild to moderate atrophy without acute intracranial findings. 2. Acute and chronic sinus disease discussed above.
[2020-02-26] MEDS ORDERED: ENOXAPARIN SODIUM INJ 80 MG/0.8 ML DISP.SYRIN SUBCUT SCH (22:00)
[2020-02-26] MEDS: MIRTAZAPINE 15 MG TABLET PO SCH ×2 (22:46→23:46)
[2020-02-26] MEDS: CLONIDINE HCL 0.1 MG TABLET PO SCH ×2 (22:46→23:46)
[2020-02-26] MEDS: ATORVASTATIN CALCIUM 20 MG TABLET PO SCH ×2 (22:46→23:46)
[2020-02-27] MEDS: NORMAL SALINE 1000 ML 1,000 ML IV PRN (04:03)
[2020-02-27] MEDS: ENOXAPARIN SODIUM INJ 80 MG/0.8 ML DISP.SYRIN SUBCUT SCH ×2 (05:20→17:59)
[2020-02-27] MEDS ORDERED: PROMETHAZINE HCL INJ 25 MG/1 ML VIAL IV PRN (09:30)
[2020-02-27 10:32] LABS: HEMOGLOBIN 10.9 g/dL (13.5-17.0); MEAN CORPUSCULAR HGB CONC 35.2 g/dL (32.0-36.0); MEAN CORPUSCULAR VOLUME 91 fl (80-97); PLATELET COUNT 184 10^3/uL (150-450); RED BLOOD COUNT 3.41 10^6/uL (4.35-5.55); RED CELL DISTRIBUTION WIDTH 12.8 % (11.5-14.0); WHITE BLOOD COUNT 4.5 10^3/uL (4.0-10.5)
[2020-02-27 10:51] LABS: ANION GAP 9 (5-19); BLOOD UREA NITROGEN 18 mg/dL (7-20); CALCIUM 8.3 mg/dL (8.4-10.2); CARBON DIOXIDE 22 mmol/L (22-30); CHLORIDE 109 mmol/L (98-107); GLUCOSE 113 mg/dL (75-110); POTASSIUM 4.1 mmol/L (3.6-5.0)
[2020-02-27] MEDS: ASPIRIN 81 MG TABLET, ENT COATED PO SCH (12:45)
[2020-02-27] MEDS: ZINC SULFATE 220 MG CAPSULE PO SCH (12:45)
[2020-02-27] MEDS: LISINOPRIL 10 MG TABLET PO SCH (12:45)
[2020-02-27] MEDS: DIVALPROEX SODIUM 500 MG TAB.SR.24H PO SCH (12:45)
[2020-02-27] MEDS: CHOLECALCIFEROL (D3) 1,000 UNIT (25 MCG) TABLET PO SCH (12:46)
[2020-02-27] MEDS: DOCUSATE SODIUM 100 MG CAPSULE PO SCH ×2 (12:46→17:59)
[2020-02-27] MEDS: ASCORBIC ACID 500 MG TABLET PO SCH ×2 (12:46→18:00)
[2020-02-27] MEDS: METOPROLOL TARTRATE 25 MG TABLET PO SCH (12:46)
--- NOTE | 2020-02-27 18:32 | PDOC PROGRESS REPORT ---
Subjective Progress Note for:: 02/27/20 Subjective:: JADA SANCHEZ is a 69 year old male with a past medical history significant for schizophrenia, non-STEMI, hypertension, and hyperlipidemia who was admitted 02/25/20 with LOUISE, rhabdomyolysis and PE. Patient was seen on afternoon rounds. He is found resting in bed, comfortably, on room air. He was awake and would occasionally make eye contact but was nonverbal. He does appear to be comfortable and is not noted to be in any acute distress. ROS is otherwise limited. Per nursing, patient has had adequate oral fluid intake today and ate approximately 25% of his lunch. Did take most oral medications today. Reason For Visit: LOUISE,AFIB RVR,PE Physical Exam Vital Signs: Temp Pulse Resp BP Pulse Ox 99.2 F 70 17 167/83 H 97 02/27/20 15:07 02/27/20 15:07 02/27/20 15:07 02/27/20 15:07 02/27/20 15:07 Intake & Output 02/26/20 02/27/20 02/28/20 06:59 06:59 06:59 Intake Total 2897 2242 712 Balance 2897 2242 712 Weight 63.3 kg 68.9 kg General appearance: PRESENT: no acute distress, thin, well-developed, well-n ourished Head exam: PRESENT: atraumatic, normocephalic Eye exam: PRESENT: conjunctiva pink, EOMI, PERRLA. ABSENT: scleral icterus Mouth exam: PRESENT: moist, tongue midline Teeth exam: PRESENT: poor dentation Respiratory exam: PRESENT: clear to auscultation esme, symmetrical, unlabored, other - room air. ABSENT: rales, rhonchi, wheezes Cardiovascular exam: PRESENT: RRR. ABSENT: diastolic murmur, rubs, systolic murmur Vascular exam: PRESENT: normal capillary refill GI/Abdominal exam: PRESENT: normal bowel sounds, soft. ABSENT: distended, guarding, mass, organolmegaly, rebound, tenderness Rectal exam: PRESENT: deferred Extremities exam: PRESENT: full ROM. ABSENT: calf tenderness, clubbing, pedal edema Neurological exam: PRESENT: alert, awake, CN II-XII grossly intact, other - Make eye contact and occasionally shakes his head 'no'. Does not answer questions or follow directions otherwise.. ABSENT: motor sensory deficit Skin exam: PRESENT: dry, intact, warm. ABSENT: cyanosis, rash Results Laboratory Results: 02/27/20 10:11 02/27/20 10:11 02/27/20 02/27/20 10:11 10:11 WBC 4.5 RBC 3.41 L Hgb 10.9 L Hct 31.0 L MCV 91 MCH 32.0 MCHC 35.2 RDW 12.8 Plt Count 184 Sodium 140.0 Potassium 4.1 Chloride 109 H Carbon Dioxide 22 Anion Gap 9 BUN 18 Creatinine 0.77 Est GFR ( Amer) > 60 Glucose 113 H Calcium 8.3 L 02/25/20 02/25/20 02/25/20 08:15 08:15 18:40 Creatine Kinase 698 H CK-MB (CK-2) 3.28 Troponin I 0.054 0.041 02/26/20 02/26/20 00:30 04:31 Creatine Kinase 255 H CK-MB (CK-2) Troponin I 0.033 Impressions: Chest/Abdomen CTA 02/25/20 08:46 IMPRESSION: 1. THROMBUS IN A SINGLE ARTERIAL BRANCH TO THE RIGHT MIDDLE LOBE. 2. 1 CM NODULE IN THE INFERIOR RIGHT UPPER LOBE. 3. NO OTHER ACUTE FINDINGS. Scrotum Ultrasound 02/25/20 10:01 IMPRESSION: Bilateral hydroceles. Bilateral epididymal cysts. Normal testes with normal blood flow. No evidence of epididymitis. Head CT 02/26/20 00:00 IMPRESSION: 1. Mild to moderate atrophy without acute intracranial findings. 2. Acute and chronic sinus disease discussed above. Assessment and Plan - Diagnosis (1) Acute kidney injury Is this a current diagnosis for this admission?: Yes Plan: Improved; Cr 1.72/BUN 20 -> 1.07/24-> 0.77/18 Prerenal; multifactorial secondary to dehydration and hypotension (following A. fib RVR) Continue generous IV fluids. Avoid nephrotoxic medications as able. Encourage p.o. intake; improved oral intake. Strict I&O's. Follow-up chemistry. (2) Atrial fibrillation with RVR Is this a current diagnosis for this admission?: Yes Plan: Per EMS. Reviewed strips provided by EMS service; he was found to have a narrow complex tachycardia with a rate of 177. Cardioverted on scene without trial of medications. Currently in sinus rhythm with LBBB (prior history of same) Monitor on telemetry; no further arrhythmias noted. Continue home dose metoprolol. (3) Pulmonary embolism Qualifiers: Pulmonary embolism type: unspecified Chronicity: acute Acute cor pulmonale presence: without acute cor pulmonale Qualified Code(s): I26.99 - Other pulmonary embolism without acute cor pulmonale Is this a current diagnosis for this admission?: Yes Plan: Unprovoked; patient did spend 3 days in the emergency department as a social hold with likely increased sedentary behavior as compared to baseline. The sister is aware of some cardiac history but is unable to confirm whether or not the patient has had atrial fibrillation in the past. Currently maintaining oxygen saturations on room air. Initially on Heparin drip per protocol; unfortunately, have not been able to obtain therapeutic levels. Discussed with the patients Paulo GUERRA. Discussed pros/cons of Xarelto v Eliquis v Lovenox r/t patient's ongoing noncompliance with oral medications. Ms. Duong elected Eliquis as twice daily dosing would increase likelihood patient would receive some anticoagulation benefit and as she did not feel that caregivers would be capable of Lovenox administration. Advised Ms. Duong that intermittent complaince w/ oral medication would result in subtherapeutic treatment and possible lead to progression/worsening/reoccurrence of pulmonary emboli. She expressed understanding and confirmed her decision. Will d/c heparin gtt and provide full dose Lovenox while in house. Start Eliquis at discharge. (4) Rhabdomyolysis Qualifiers: Rhabdomyolysis type: non-traumatic Qualified Code(s): M62.82 - Rhabdomyolysis Is this a current diagnosis for this admission?: Yes Plan: Resolved; CK 698-> 255 Mild rhabdomyolysis secondary to dehydration. Continue generous IV fluids. Encourage po fluids. Nursing reports improved oral intake today. Follow-up chemistries. (5) Schizophrenia Qualifiers: Schizophrenia type: paranoid schizophrenia Qualified Code(s): F20.0 - Paranoid schizophrenia Is this a current diagnosis for this admission?: Yes Plan: We will continue medication regiment as was recommended by mental health service during his recent emergency department stay. Continues on clonidine, Depakote, Remeron, and as needed Risperdal. Spoke with Paulo GUERRA; she requested that patient be transitioned to patch or IM depot injection. Attempted to call the patient mental health provider, Dr. Nunez, at [facility]. Left message. Will consult in-house health services. Continue home medication regimen for now. Supportive care. (6) Hypotension Qualifiers: Hypotension type: unspecified hypotension type Qualified Code(s): I95.9 - Hypotension, unspecified Is this a current diagnosis for this admission?: Yes Plan: Resolved following IV fluids. Secondary to dehydration. (7) Suspected COVID-19 virus infection Is this a current diagnosis for this admission?: Yes Plan: Ruled out; COVID tested negative. (8) Metabolic acidosis Is this a current diagnosis for this admission?: Yes Plan: Resolved; Anion gap 22/bicarb 16-> Anion gap 9/Bicarb 20. Likely secondary to dehydration and acute kidney injury. Lactic acid 1.6. Patient has already received IV fluid bolus; will continue generous IV fluids. (9) Mental status change Qualifiers: Altered mental status type: transient alteration of awareness Qualified Code(s): R40.4 - Transient alteration of awareness Is this a current diagnosis for this admission?: Yes Plan: Likely secondary to Schizophrenia. Nursing reported decreased responsiveness (although, he is noted to be minimally interactively at baseline) and generalized shaking. Head CT benign. EEG pending. Have now observed this activity; believe this to be more related behavior than seizure activity. Will hold on AEP for now. - Time Time Spent with patient: 35 or more minutes Medications reviewed and adjusted accordingly: Yes Anticipated Discharge Disposition: Home, Self Care Anticipated Discharge Timeframe: within 24 hours - pending EEG
[2020-02-27] MEDS: LEVETIRACETAM 500 MG/NACL-ISO 500 MG/100 ML RTUPB IV SCH (21:52)
--- NOTE | 2020-02-27 22:23 | NEURO WORKBENCH EEG REPORT ---
EEG Report Patient: Pj Landis ID: [id number] Referring Doctor: Almita Hutchins DOS: 02/27/2020 Medications: Vitamin C, ecotrin, lipitor, vitamin D3, clonidine, depakote, colace, lovenox, lisinopril, lopressor, remeron, zinc History This is a 69 year old male with a history of schizophrenia, depression, drug use, psychosocial disorder, back problems, gall bladder disease, GI disorders, hypertension, [place], hearing loss, fractured nose admitted with LOUISE, atrial fibrillation, PE. This EEG was requested for AMS. EEG Interpretation This EEG was recorded in the awake state only. The EEG was filled with artifact, nearly continuously over the right side significantly impairing interpretation. The awake EEG that was only briefly noted without artifact is characterized by a moderately-organized background without a noted posterior dominant rhythm. The remainder of the background was characterized by a combination of alpha and beta frequencies. Photic stimulation resulted in a no significant changes. There were no epileptiform abnormalities. The EKG showed a regular rhythm. EEG Classification * Artifact technically poor study EEG Impression This EEG is unreliable with significant artifact. Brief periods were visible and appeared within normal limits for age. INTERPRETING NEUROLOGIST: Mireya Donaldson MD, FRCPC Board Certified in Neurology, with special qualification in Child Neurology, and in Clinical Neurophysiology [facility]
[2020-02-28] MEDS: ATORVASTATIN CALCIUM 20 MG TABLET PO SCH (02:54)
[2020-02-28] MEDS: DIVALPROEX SODIUM 500 MG TAB.SR.24H PO SCH (02:54)
[2020-02-28] MEDS: CLONIDINE HCL 0.1 MG TABLET PO SCH (02:54)
[2020-02-28] MEDS: METOPROLOL TARTRATE 25 MG TABLET PO SCH ×2 (02:55→11:54)
[2020-02-28] MEDS: LISINOPRIL 10 MG TABLET PO SCH ×2 (02:55→11:54)
[2020-02-28] MEDS: MIRTAZAPINE 15 MG TABLET PO SCH (02:55)
[2020-02-28 05:14] LABS: HEMATOCRIT 32.4 % (37.9-51.0); HEMOGLOBIN 11.5 g/dL (13.5-17.0); MEAN CORPUSCULAR HEMOGLOBIN 31.6 pg (27.0-33.4); MEAN CORPUSCULAR HGB CONC 35.4 g/dL (32.0-36.0); MEAN CORPUSCULAR VOLUME 89 fl (80-97); PLATELET COUNT 186 10^3/uL (150-450); RED BLOOD COUNT 3.63 10^6/uL (4.35-5.55); RED CELL DISTRIBUTION WIDTH 12.4 % (11.5-14.0); WHITE BLOOD COUNT 5.7 10^3/uL (4.0-10.5)
[2020-02-28 05:38] LABS: ANION GAP 10 (5-19); BLOOD UREA NITROGEN 11 mg/dL (7-20); CALCIUM 8.4 mg/dL (8.4-10.2); CARBON DIOXIDE 20 mmol/L (22-30); CHLORIDE 104 mmol/L (98-107); CREATINE KINASE 105 U/L (55-170); GLUCOSE 107 mg/dL (75-110); POTASSIUM 3.6 mmol/L (3.6-5.0)
[2020-02-28] MEDS: ENOXAPARIN SODIUM INJ 80 MG/0.8 ML DISP.SYRIN SUBCUT SCH (06:24)
--- NOTE | 2020-02-28 06:43 | PDOC CONSULTATION ---
Consultation-Blank Consultation: REason for Consult: medication recommendations Patient is observed laying in bed with visible tremors. Patient refuses to engage with clinician. Medication recommendations per [facility]'s contracted psychiatrist are as follows: please continue previous recommendations of Remeron to 15MG at night for sleep Depakote 500MG twice a day for mood stabilization Clonidine 0.1MG at night as needed for sleep Risperdal 0.25MG twice a day as needed for psychosis/agitation (try to avoid use if you can, DO NOT USE ANY OTHER ANTIPSYCHOTICS) AVOID ALL BENZODIAZEPINES Impression/plan: patient is cleared from acute psychiatrist services. This patient is known by clinician and department. There is a noted behavioral aspect to the patient's current presentation. He will choose some staff to talk to and some he will not. It is noted the patient does not appear to want to go home; it is unclear why this is as he will not engage with clinician. Dr. Joseph was consulted on the care and management of this patient. Spoke with provider to discuss recommendations. They are in agreement with recommendations and disposition.
[2020-02-28] MEDS: NORMAL SALINE 1000 ML 1,000 ML IV PRN (08:46)
[2020-02-28] MEDS ORDERED: CLONIDINE 0.1 MG/24 HR PATCH.TDWK TD SCH (10:00)
[2020-02-28] MEDS ORDERED: VALPROATE SODIUM SYRUP 250 MG/5 ML UDCUP PO SCH (10:00)
[2020-02-28] MEDS: LEVETIRACETAM 500 MG/NACL-ISO 500 MG/100 ML RTUPB IV SCH (10:39)
[2020-02-28] MEDS: DOCUSATE SODIUM 100 MG CAPSULE PO SCH (11:22)
[2020-02-28] MEDS: ASPIRIN 81 MG TABLET, ENT COATED PO SCH (11:34)
[2020-02-28] MEDS ORDERED: AMMONIA INHALANTS 10 AMPUL/BOX IH ONE (14:05)
--- NOTE | 2020-02-28 19:30 | PDOC DISCHARGE SUMMARY ---
Impression - Admit/DC Date/PCP Admission Date/Primary Care Provider: 02/25/20 13:17 CHAD MENDOZA Discharge Date: 02/28/20 - Discharge Diagnosis (1) Acute kidney injury Is this a current diagnosis for this admission?: Yes (2) Atrial fibrillation with RVR Is this a current diagnosis for this admission?: Yes (3) Pulmonary embolism Is this a current diagnosis for this admission?: Yes (4) Rhabdomyolysis Is this a current diagnosis for this admission?: Yes (5) Schizophrenia Is this a current diagnosis for this admission?: Yes (6) Hypotension Is this a current diagnosis for this admission?: Yes (7) Suspected COVID-19 virus infection Is this a current diagnosis for this admission?: Yes (8) Metabolic acidosis Is this a current diagnosis for this admission?: Yes (9) Mental status change Is this a current diagnosis for this admission?: Yes - Additional Information Resuscitation Status: Full Code Discharge Diet: Regular Discharge Activity: Activity As Tolerated, Balance Activity w/Rest Referrals: CHAD MENDOZA MD [Primary Care Provider] - 03/03/20 9:45 am Prescriptions: Clonidine [Catapres-Tts 1 (0.1 mg/24 Hr) Transderm Patch] 1 each TD Fr@10 #4 patch.tdwk Valproate Sodium [Depakene Syrup 250 mg/5 ml Udcup] 500 mg PO Q12 #120 udc Apixaban [Eliquis 5 mg Tablet] 5 mg PO Q12 #60 tablet Mirtazapine [Remeron 15 mg Tablet] 15 mg PO QHS #30 tablet Risperidone [Risperdal 0.25 mg Tablet] 0.25 mg PO BIDP PRN #60 tablet PRN Reason: Home Medications: Lisinopril [Zestril] 10 mg PO Q12 11/01/16 Metoprolol Tartrate [Lopressor 25 mg Tablet] 25 mg PO Q12 11/01/16 Aspirin [Adult Low Dose Aspirin EC] 81 mg PO DAILY 02/25/20 Atorvastatin Calcium [Lipitor 20 mg Tablet] 20 mg PO QHS 02/25/20 Ergocalciferol (Vitamin D2) [Drisdol 50,000 unit (1.25MG) Capsule] 50,000 unit PO JACOB 02/25/20 Acetaminophen [Tylenol 325 mg Tablet] 650 mg PO Q4HP PRN tablet 02/28/20 Apixaban [Eliquis 5 mg Tablet] 5 mg PO Q12 #60 tablet 02/28/20 Clonidine [Catapres-Tts 1 (0.1 mg/24 Hr) Transderm Patch] 1 each TD Fr@10 #4 patch.tdwk 02/28/20 Mirtazapine [Remeron 15 mg Tablet] 15 mg PO QHS #30 tablet 02/28/20 Risperidone [Risperdal 0.25 mg Tablet] 0.25 mg PO BIDP PRN #60 tablet 02/28/20 Valproate Sodium [Depakene Syrup 250 mg/5 ml Udcup] 500 mg PO Q12 #120 udc 02/28/20 History of Present Illiness History of Present Illness: JADA SANCHEZ is a 69 year old male with a past medical history significant for schizophrenia, non-STEMI, hypertension, and hyperlipidemia who recently was in the emergency department for a 3-day social hold after being evaluated for altered mental status related to medication noncompliance. At time of discharge, the patient reportedly stated that he felt unwell and did not want to leave the hospital but was unable to specify his symptoms further. Per the patient's sister, whom he lives with, the patient has continued to have nonspecific complaints of feeling unwell. She has noted that he has been more fatigued, intermittently shivering though without fever, with decreased appetite and a hoarse sounding voice. He presented to the emergency department today by EMS after near syncopal episode at home. He was found to be in atrial fibrillation RVR and cardioverted on scene. Reviewed EMS telemetry strips; shows a narrow complex tachycardia with a rate of 177. Following cardioversion, he was found to be in sinus rhythm with a left bundle branch block. Further evaluation in the emergency department revealed initial hypotension that responded to IV fluids and tachypnea (RR30s). CBC is unremarkable, PT/INR are acceptable (INR 1.24), LOUISE (BUN 20, creatinine 1.72), metabolic acidosis (anion gap of 22 and bicarb 16), CK 698, i ndeterminately elevated troponin of 0.054, normal lactic acid, urinalysis notable for ketones, protein, blood. Subtherapeutic valproic acid level (though no Hx of seizures). CTA chest revealed a right middle lobe pulmonary embolus and 1 cm nodule to the inferior right upper lobe but no other acute findings. He was provided IV fluid boluses and placed on a heparin drip. He is referred to the hospital service for further evaluation management of the above-stated complaints findings. Hospital Course Hospital Course: (1) Acute kidney injury Resolved; Cr 1.72/BUN 20 -> 1.07/24-> 0.77/18-> 0.70/11 Prerenal; multifactorial secondary to dehydration and hypotension (following A. fib RVR) Received generous IV fluids. Avoid nephrotoxic medications as able. Encourage p.o. intake; improved oral intake. Follow-up chemistry at visit with PCP. (2) Atrial fibrillation with RVR Per EMS. Reviewed strips provided by EMS service; he was found to have a narrow complex tachycardia with a rate of 177. Cardioverted on scene without trial of medications. Currently in sinus rhythm with LBBB (prior history of same) Monitor on telemetry; no further arrhythmias noted. Continue home dose metoprolol. (3) Pulmonary embolism Unprovoked; patient did spend 3 days in the emergency department as a social ho ld with likely increased sedentary behavior as compared to baseline. The family member is aware of some cardiac history but is unable to confirm whether or not the patient has had atrial fibrillation in the past. Currently maintaining oxygen saturations on room air. Discussed with the patients Paulo GUERRA. Discussed pros/cons of Xarelto v Eliquis v Lovenox r/t patient's ongoing noncompliance with oral medications. Ms. Duong elected Eliquis as twice daily dosing would increase likelihood patient would receive some anticoagulation benefit and as she did not feel that caregivers would be capable of Lovenox administration. Advised Ms. Duong that intermittent complaince w/ oral medication would result in subtherapeutic treatment and possible lead to progression/worsening/reoccurrence of pulmonary emboli. She expressed understanding and confirmed her decision. Received full dose Lovenox while in house. Start Eliquis at discharge. (4) Rhabdomyolysis Resolved; CK 698-> 255-> 105 Mild rhabdomyolysis secondary to dehydration. Received IV fluids. Nursing reports improved oral intake. (5) Schizophrenia We will continue medication regiment as was recommended by mental health service during his recent emergency department stay. Continues on clonidine, Depakote, Remeron, and as needed Risperdal. Spoke with Paulo GUERRA; she requested that patient be transitioned to patch or IM depot injection. Attempted to call the patient mental health provider, Dr. Nunez, at [facility]. Left message but did not receive return call. Will consult in-house health services; recommend that he continue his home medication regiment unchanged. He does not regularly decline his Depakote. I have sent in a new prescription for the same dose but as an oral solution (reportedly freire flavored). Perhaps this will be more appealing to the patient and improve his compliance. Supportive care. Close follow-up with established mental health provider. (6) Hypotension Resolved following IV fluids. Secondary to dehydration. (7) Suspected COVID-19 virus infection Ruled out; COVID tested negative. (8) Metabolic acidosis Resolved; Anion gap 22/bicarb 16-> Anion gap 9/Bicarb 20. Likely secondary to dehydration and acute kidney injury. Lactic acid 1.6. Patient received generous IV fluids. He is now intermittently taking in oral fluids; hopefully this will improve upon returning to his home environment and marketing support assistant. (9) Mental status change Likely secondary to Schizophrenia. Nursing reported decreased responsiveness (although, he is noted to be minimally interactively at baseline) and generalized shaking. Head CT benign. EEG was of poor quality and not able to be interpreted. Have now observed this activity; believe this to be more related behavior than seizure activity. Did discuss patient's witnessed behavior with his family member/primary marketing support assistant. She confirms the patient has no history of seizure activity. She also relates that this is typical behavior for the patient when he is upset. She is unconcerned by this behavior and comfortable with proceeding to discharge to home. Physical Exam Vital Signs: Temp Pulse Resp BP Pulse Ox 97.9 F 76 14 145/82 H 99 02/28/20 14:18 02/28/20 14:18 02/28/20 14:18 02/28/20 14:18 02/28/20 14:18 Intake & Output 02/27/20 02/28/20 02/29/20 06:59 06:59 06:59 Intake Total 2241 1951 200 Balance 2241 1951 200 Weight 68.9 kg 68.9 kg General appearance: PRESENT: no acute distress, thin, well-developed, well- nourished Head exam: PRESENT: atraumatic, normocephalic Eye exam: PRESENT: conjunctiva pink, EOMI, PERRLA. ABSENT: scleral icterus Mouth exam: PRESENT: moist, tongue midline Respiratory exam: PRESENT: clear to auscultation esme, symmetrical, unlabored, other - Room air. ABSENT: rales, rhonchi, wheezes Cardiovascular exam: PRESENT: RRR. ABSENT: diastolic murmur, rubs, systolic murmur Pulses: PRESENT: normal dorsalis pedis pul Vascular exam: PRESENT: normal capillary refill GI/Abdominal exam: PRESENT: normal bowel sounds, soft. ABSENT: distended, guarding, mass, organolmegaly, rebound, tenderness Rectal exam: PRESENT: deferred Extremities exam: PRESENT: full ROM. ABSENT: calf tenderness, clubbing, pedal edema Neurological exam: PRESENT: alert, awake, CN II-XII grossly intact, other - Does not make eye contact today; turns his head away and squeezes eyes tightly. Does not respond to questions or follow directions. Per family member, this is typical behavior for patient and nonconcerning.. ABSENT: motor sensory deficit Skin exam: PRESENT: dry, intact, warm. ABSENT: cyanosis, rash Results Laboratory Results: WBC 5.7 10^3/uL (4.0-10.5) 02/28/20 04:52 RBC 3.63 10^6/uL (4.35-5.55) L 02/28/20 04:52 Hgb 11.5 g/dL (13.5-17.0) L 02/28/20 04:52 Hct 32.4 % (37.9-51.0) L 02/28/20 04:52 MCV 89 fl (80-97) 02/28/20 04:52 MCH 31.6 pg (27.0-33.4) 02/28/20 04:52 MCHC 35.4 g/dL (32.0-36.0) 02/28/20 04:52 RDW 12.4 % (11.5-14.0) 02/28/20 04:52 Plt Count 186 10^3/uL (150-450) 02/28/20 04:52 Lymph % (Auto) 24.1 % (13-45) 02/25/20 08:15 Ralls % (Auto) 7.1 % (3-13) 02/25/20 08:15 Eos % (Auto) 0.8 % (0-6) 02/25/20 08:15 Baso % (Auto) 0.7 % (0-2) 02/25/20 08:15 Absolute Neuts (auto) 6.5 10^3/uL (1.7-8.2) 02/25/20 08:15 Absolute Lymphs (auto) 2.3 10^3/uL (0.5-4.7) 02/25/20 08:15 Absolute Monos (auto) 0.7 10^3/uL (0.1-1.4) 02/25/20 08:15 Absolute Eos (auto) 0.1 10^3/uL (0.0-0.6) 02/25/20 08:15 Absolute Basos (auto) 0.1 10^3/uL (0.0-0.2) 02/25/20 08:15 Seg Neutrophils % 67.3 % (42-78) 02/25/20 08:15 PT 15.8 SEC (11.4-15.4) H 02/25/20 14:26 INR 1.24 02/25/20 14:26 INR (Anticoag Therapy) Cancelled 02/25/20 10:55 APTT 178.8 SEC (23.5-35.8) H* D 02/26/20 11:19 Sodium 134.3 mmol/L (137-145) L 02/28/20 04:52 Potassium 3.6 mmol/L (3.6-5.0) 02/28/20 04:52 Chloride 104 mmol/L (98-107) 02/28/20 04:52 Carbon Dioxide 20 mmol/L (22-30) L 02/28/20 04:52 Anion Gap 10 (5-19) 02/28/20 04:52 BUN 11 mg/dL (7-20) 02/28/20 04:52 Creatinine 0.70 mg/dL (0.52-1.25) 02/28/20 04:52 Est GFR ( Amer) > 60 (>60) 02/28/20 04:52 Est GFR (MDRD) Non-Af > 60 (>60) 02/28/20 04:52 Glucose 107 mg/dL (75-110) 02/28/20 04:52 POC Glucose 125 mg/dL (70-110) H 02/27/20 10:25 Lactic Acid 1.6 mmol/L (0.7-2.1) 02/25/20 10:55 Calcium 8.4 mg/dL (8.4-10.2) 02/28/20 04:52 Total Bilirubin 0.7 mg/dL (0.2-1.3) 02/25/20 08:15 Direct Bilirubin 0.1 mg/dL (0.0-0.4) 02/25/20 08:15 Neonat Total Bilirubin Not Reportable 02/25/20 08:15 Neonat Direct Bilirubin Not Reportable 02/25/20 08:15 Neonat Indirect Bili Not Reportable 02/25/20 08:15 AST 35 U/L (17-59) 02/25/20 08:15 ALT 18 U/L (<50) 02/25/20 08:15 Alkaline Phosphatase 53 U/L (38-126) 02/25/20 08:15 Creatine Kinase 105 U/L (55-170) 02/28/20 04:52 CK-MB (CK-2) 3.28 ng/mL (<4.55) 02/25/20 08:15 Troponin I 0.033 ng/mL 02/26/20 00:30 Total Protein 6.9 g/dL (6.3-8.2) 02/25/20 08:15 Albumin 3.8 g/dL (3.5-5.0) 02/25/20 08:15 TSH 1.76 uIU/mL (0.47-4.68) 02/25/20 14:26 Urine Color YELLOW 02/25/20 12:15 Urine Appearance CLOUDY 02/25/20 12:15 Urine pH 5.0 (5.0-9.0) 02/25/20 12:15 Ur Specific [place] 1.026 02/25/20 12:15 Urine Protein 30 mg/dL (NEGATIVE) H 02/25/20 12:15 Urine Glucose (UA) NEGATIVE mg/dL (NEGATIVE) 02/25/20 12:15 Urine Ketones 20 mg/dL (NEGATIVE) H 02/25/20 12:15 Urine Blood MODERATE (NEGATIVE) H 02/25/20 12:15 Urine Nitrite NEGATIVE (NEGATIVE) 02/25/20 12:15 Urine Bilirubin NEGATIVE (NEGATIVE) 02/25/20 12:15 Urine Urobilinogen 4.0 mg/dL (<2.0) H 02/25/20 12:15 Ur Leukocyte Esterase SMALL (NEGATIVE) H 02/25/20 12:15 Urine WBC (Auto) 39 /HPF 02/25/20 12:15 Urine RBC (Auto) 26 /HPF 02/25/20 12:15 U Hyaline Cast (Auto) 38 /LPF 02/25/20 12:15 Urine Bacteria (Auto) TRACE /HPF 02/25/20 12:15 Squamous Epi Cells Auto 1 /HPF 02/25/20 12:15 Urine Mucus (Auto) MANY /LPF 02/25/20 12:15 Urine Ascorbic Acid NEGATIVE (NEGATIVE) 02/25/20 12:15 Urine Opiates Screen NEGATIVE 02/25/20 12:15 Urine Methadone Screen NEGATIVE 02/25/20 12:15 Ur Barbiturates Screen NEGATIVE 02/25/20 12:15 Valproic Acid 39.6 ug/mL (50.0-120.0) L 02/25/20 08:15 Ur Phencyclidine Scrn NEGATIVE 02/25/20 12:15 Ur Amphetamines Screen NEGATIVE 02/25/20 12:15 U Benzodiazepines Scrn NEGATIVE 02/25/20 12:15 Urine Cocaine Screen NEGATIVE 02/25/20 12:15 U Marijuana (THC) Screen NEGATIVE 02/25/20 12:15 COVID-19 Source See comment 02/25/20 12:50 COVID-19 (KURT) Not Detected (Not Detect) 02/25/20 12:50 02/25/20 02/25/20 02/26/20 08:15 18:40 00:30 CK-MB (CK-2) 3.28 Troponin I 0.054 0.041 0.033 Impressions: Chest/Abdomen CTA 02/25/20 08:46 IMPRESSION: 1. THROMBUS IN A SINGLE ARTERIAL BRANCH TO THE RIGHT MIDDLE LOBE. 2. 1 CM NODULE IN THE INFERIOR RIGHT UPPER LOBE. 3. NO OTHER ACUTE FINDINGS. Scrotum Ultrasound 02/25/20 10:01 IMPRESSION: Bilateral hydroceles. Bilateral epididymal cysts. Normal testes with normal blood flow. No evidence of epididymitis. Head CT 02/26/20 00:00 IMPRESSION: 1. Mild to moderate atrophy without acute intracranial findings. 2. Acute and chronic sinus disease discussed above. Plan Plan of Treatment: Patient is discharged home, in stable condition, into the care of family members. To follow-up with primary care provider within 1 week. Advised to take medications as prescribed. I did discuss anticoagulation options with the patient's HC POA/POA. They have elected twice daily Eliquis and understand the risks of inconsistent medication compliance. Encourage p.o. fluids; eat as tolerated. Return to the emergency department, as needed, for concerning symptoms. Time Spent: Greater than 30 Minutes Stroke Is this a Stroke Patient?: No Acute Heart Failure Is this a Heart Failure Patient?: No
[2020-02-28 21:54] VITALS: BP 113/57
== END 2020-02-28 14:35 | disposition home health service (06) | DRG 682 ==
LOC: ER 08:00 → INTOOBSV 13:17 → EH 13:17 → OBSVTOIN 13:17 → 3W 17:41 → 3N 02-26 15:54 → 4N 02-27 20:05
PROVIDERS: ADMIT Internal Medicine; ATTEND Registered Nurse
DX: N17.9 Acute kidney failure, unspecified (principal); I26.99 Other pulmonary embolism without acute cor pulmonale; M62.82 Rhabdomyolysis; E87.2 Acidosis; F20.0 Paranoid schizophrenia; I48.91 Unspecified atrial fibrillation; I95.9 Hypotension, unspecified; E78.5 Hyperlipidemia, unspecified; I44.7 Left bundle-branch block, unspecified; E86.0 Dehydration; F41.1 Generalized anxiety disorder; I10 Essential (primary) hypertension; I25.2 Old myocardial infarction; Z78.1 Physical restraint status; Z20.828 Contact with and (suspected) exposure to other viral communicable diseases; Z79.899 Other long term (current) drug therapy; Z79.01 Long term (current) use of anticoagulants; Z79.82 Long term (current) use of aspirin; Z91.14 Patient's other noncompliance with medication regimen; Z87.891 Personal history of nicotine dependence
CPT/HCPCS: 36415; 70450; 71045; 71275; 76870; 80048; 80053; 80164; 80307; 81001; 82550; 82553; 82962; 83605; 83735; 84443; 84484; 85025; 85027; 85610; 85730; 87040; 87635; 93005; 93010; 95819; 96360; 99285; C9803; G0378; J1644; J1650; J1953; J3490; J7030

== ENCOUNTER 2020-03-09 10:51 | Emergency (ER) | payer MEDICARE, MEDICAID ==
[2020-03-09] MEDS ORDERED: NORMAL SALINE 1000 ML 1,000 ML IV ONE (12:19)
--- NOTE | 2020-03-09 12:25 | ER Document Report ---
ED General - General Chief Complaint: Weakness Stated Complaint: WEAKNESS Time Seen by Provider: 03/09/20 12:11 Primary Care Provider: CHAD MENDOZA MD [Primary Care Provider] - Follow up as needed Notes: 69-year-old male presents to the ER for failure to thrive. The patient has been at home and has not really eaten or drank anything in almost a week. The patient is not really that verbal and will answer only a few simple questions. Denies any complaints. Denies chest pain denies shortness of breath. Patient seems very somnolent. Cannot really get more information out of him than that family sent to EMS that he is not eating or drinking or certainly not himself. TRAVEL OUTSIDE OF THE [place] IN LAST 30 DAYS: No - Related Data Allergies/Adverse Reactions: No Known Allergies Allergy (Verified 02/20/20 15:54) Past Medical History - Social History Smoking Status: Never Smoker Family History: Reviewed & Not Pertinent - Past Medical History Cardiac Medical History: Reports: Hx Atrial Fibrillation, Hx Heart Attack, Hx Hypercholesterolemia, Hx Hypertension Denies: Hx Congestive Heart Failure Endocrine Medical History: Denies: Hx Diabetes Mellitus Type 1, Hx Diabetes Mellitus Type 2, Hx Hypothyroidism Renal/ Medical History: Denies: Hx Peritoneal Dialysis Musculoskeletal Medical History: Reports Hx Arthritis Psychiatric Medical History: Reports: Hx Depression, Hx Schizophrenia Past Surgical History: Reports: Hx Appendectomy, Hx Cholecystectomy - Immunizations Hx Diphtheria, Pertussis, Tetanus Vaccination: Yes Hx Pneumococcal Vaccination: 06/08/11 Review of Systems - Review of Systems Constitutional: denies: Chills, Fever Cardiovascular: denies: Chest pain, Dyspnea Respiratory: denies: Cough, Short of breath Neurological/Psychological: Confusion, Dementia. denies: Paralysis -: Yes All other systems reviewed and negative Physical Exam - Vital signs Vitals: Temp 97.9 F 03/09/20 11:51 - Notes Notes: GENERAL_APPEARANCE: Thin chronically ill-appearing, sleeping VITALS: reviewed, see vital signs table. HEAD: no_swelling\\tenderness on the head. EYES: PERRL, EOMI, conjunctiva_clear. NOSE: no_nasal_discharge. MOUTH: Dry tongue lips and mucous membranes THROAT: no_throat_inflammation, no_airway_obstruction. no_lymphadenopathy NECK: supple, no_neck_tenderness, (-)thyromegaly. BACK: no_back_tenderness. CHEST_WALL: no_chest_tenderness. LUNGS: no_wheezing, no_rales, no_rhonchi, (-)accessory muscle use, good air exchange bilateral. HEART: normal_rate, normal_rhythm, normal_S1, normal_S2, (-)S3, (-)S4, no_murmur, no_rub. ABDOMEN: soft, no_abd_tenderness, (-)guarding, (-)rebound, no_organomegaly, no_abd_masses. EXTREMITIES: strength 5/5 in all_extremities, good pulses in all_extremities, no_swelling\\tenderness in the extremities, no_edema. SKIN: warm, dry, good_color, no_rash. Dry skin various bruising MENTAL_STATUS: Does not clearly speak will knod or moan "ah-huh" NEURO: Renal nerves II through XII appear intact, withdraws to pain in all 4 extremities. No obvious motor or sensory deficits is difficult to test due to the patient's mentation and not following complete commands Course - Re-evaluation Re-evalutation: 03/09/20 12:23 69-year-old male presents with altered mental status. Family reports he is not eating or drank in the last week almost. Patient does not completely converse and will give some intermittent simple answers. He looks very dehydrated. We will hydrate him and work him up. Altered mental status CT of the brain. 03/09/20 17:34 Lab work looks much better than expected CT shows chronic changes. Does have a very mild UTI which is likely chronic in nature. I do not see anything that requires hospitalization at this time. As worker spoke with the family. Patient is also a garcia of the [facility]. Due to his age and chronic conditions and chronic illnesses. The patient will likely need to be placed I do not have admission criteria for now they are also discussing home hospice. Patient will discharge back to the home and they will continue to discuss options. He had his labs he is getting appropriate nutrition and hydration. - Vital Signs Vital signs: Temp Pulse Resp BP Pulse Ox 97.9 F 88 20 147/65 H 93 03/09/20 11:51 03/09/20 11:53 03/09/20 11:53 03/09/20 17:00 03/09/20 17:00 - Laboratory Result Diagrams: 03/09/20 12:41 03/09/20 12:41 Laboratory results interpreted by me: 03/09/20 03/09/20 03/09/20 12:41 12:41 15:24 PT 15.9 H Carbon Dioxide 21 L Direct Bilirubin 0.5 H Urine Protein 100 H Urine Ketones 80 H Urine Blood SMALL H Urine Urobilinogen 2.0 H Ur Leukocyte Esterase TRACE H - Diagnostic Test Radiology reviewed: Reports reviewed Radiology results interpreted by me: 03/09/20 17:34 Chest X-Ray 03/09/20 12:19 IMPRESSION: 1. Persistent decreasing atelectasis since the prior study dated 02/20/2020 at the left lung base with very small residual remaining. 2. No acute pulmonary consolidation. Head CT 03/09/20 12:19 IMPRESSION: 1. No acute intracranial abnormality. 2. Chronic mild small vessel ischemic changes and atrophy. 3. Chronic frontal, ethmoid and left maxillary sinus disease. EVIDENCE OF ACUTE STROKE: NO Discharge - Discharge Clinical Impression: UTI (urinary tract infection) Condition: Good Disposition: HOME, SELF-CARE Instructions: Urinary Tract Infection ([facility]) Prescriptions: Nitrofurantoin Monohyd/M-Cryst [Macrobid 100 mg Capsule] 100 mg PO BID #20 cap Referrals: CHAD MENDOZA MD [Primary Care Provider] - Follow up as needed
--- NOTE | 2020-03-09 13:06 | RADIOLOGY REPORT (SQ) ---
EXAM DESCRIPTION: CT HEAD WITHOUT IMAGES COMPLETED DATE/TIME: 03/09/2020 12:52 pm REASON FOR STUDY: AMS COMPARISON: None. TECHNIQUE: Axial images acquired through the brain without intravenous contrast. Images reviewed wi th bone, brain and subdural windows. Additional sagittal and coronal reconstructions were generated. Images stored on PACS. All CT scanners at this facility use dose modulation, iterative reconstruction, and/or weight based d osing when appropriate to reduce radiation dose to as low as reasonably achievable (ALARA). [facility]: Dose Right [facility]: CareDose [facility]: Dose Right [facility]: Teradose 4D [facility]: Smart [employer] RADIATION DOSE: CT Rad equipment meets quality standard of care and radiation dose reduction techniq ues were employed. CTDIvol: 53.2 mGy. DLP: 1017 mGy-cm. LIMITATIONS: None. FINDINGS: VENTRICLES: Mildly prominent commensurate with the sulci. The cisterns are patent. CEREBRUM: Chronic mild small vessel ischemic changes. No masses. No hemorrhage. No midline shift. No evidence for acute infarction. CEREBELLUM: No masses. No hemorrhage. No alteration of density. No evidence for acute infarction. EXTRAAXIAL SPACES: Age related involutional change. No fluid collections. No masses. ORBITS AND GLOBE: No intra- or extraconal masses. Normal contour of globe without masses. CALVARIUM: No fracture. PARANASAL SINUSES: Mild mucoperiosteal thickening in frontal, ethmoid, and left maxillary sinuses. Soft tissue densities in the left maxillary sinus may represent mucous retention cyst or polyps. No fluid. Nasal bony spur on the right. SOFT TISSUES: No mass or hematoma. OTHER: The patient is edentulous. IMPRESSION: 1. No acute intracranial abnormality. 2. Chronic mild small vessel ischemic changes and atrophy. 3. Chronic frontal, ethmoid and left maxillary sinus disease. EVIDENCE OF ACUTE STROKE: NO COMMENT: Quality ID # [id number]: Final reports with documentation of one or more dose reduction techniques (e.g., Automated exposure control, adjustment of the mA and/or kV according to patient size, use of iterative reconstruction technique) TECHNICAL DOCUMENTATION: JOB ID: [id number] 2010 [employer]- All Rights Reserved Reading location - IP/workstation name: [email or web address]
--- NOTE | 2020-03-09 13:15 | RADIOLOGY REPORT (SQ) ---
EXAM DESCRIPTION: CHEST SINGLE VIEW IMAGES COMPLETED DATE/TIME: 03/09/2020 12:58 pm REASON FOR STUDY: AMS COMPARISON: 02/20/2020 EXAM PARAMETERS: NUMBER OF VIEWS: One view. TECHNIQUE: Single frontal radiographic view of the chest acquired. RADIATION DOSE: NA LIMITATIONS: None. FINDINGS: LUNGS AND PLEURA: Persistent decreasing atelectasis at the left lung base with very small residual remaining. Stable slight scarring or atelectasis in the right lower lung zone. No pneumot horax or pleural effusion. MEDIASTINUM AND HILAR STRUCTURES: No masses. Contour normal. HEART AND VASCULAR STRUCTURES: Heart normal in size. Normal vasculature. BONES: No acute findings. HARDWARE: None in the chest. OTHER: No other significant finding. IMPRESSION: 1. Persistent decreasing atelectasis since the prior study dated 02/20/2020 at the left lung base with very small residual remaining. 2. No acute pulmonary consolidation. TECHNICAL DOCUMENTATION: JOB ID: [id number] 2010 [employer]- All Rights Reserved Reading location - IP/workstation name: [email or web address]
[2020-03-09 13:19] LABS: ABSOLUTE BASOPHILS # (AUTO) 0.1 10^3/uL (0.0-0.2); ABSOLUTE EOSINOPHILS # (AUTO) 0.1 10^3/uL (0.0-0.6); ABSOLUTE LYMPHOCYTES (AUTO) 1.9 10^3/uL (0.5-4.7); ABSOLUTE MONOCYTES (AUTO) 0.6 10^3/uL (0.1-1.4); ABSOLUTE NEUT (AUTO) 4.9 10^3/uL (1.7-8.2); BASOPHILS % (AUTO) 1.1 % (0-2); EOSINOPHILS % (AUTO) 1.7 % (0-6); HEMATOCRIT 40.9 % (37.9-51.0); LYMPHOCYTES % (AUTO) 25.4 % (13-45); MEAN CORPUSCULAR HGB CONC 34.3 g/dL (32.0-36.0); MEAN CORPUSCULAR VOLUME 91 fl (80-97); MONOCYTES % (AUTO) 7.9 % (3-13); PLATELET COUNT 366 10^3/uL (150-450); RED BLOOD COUNT 4.52 10^6/uL (4.35-5.55); RED CELL DISTRIBUTION WIDTH 13.3 % (11.5-14.0); SEGMENTED NEUTROPHILS % (AUTO) 63.9 % (42-78); TOTAL CELLS COUNTED % (AUTO) 100 %; WHITE BLOOD COUNT 7.7 10^3/uL (4.0-10.5)
[2020-03-09 13:22] LABS: INTERNATIONAL RATION (INR) 1.25; PROTHROMBIN TIME 15.9 SEC (11.4-15.4)
[2020-03-09 13:39] LABS: ALBUMIN 4.1 g/dL (3.5-5.0); ALKALINE PHOSPHATASE 49 U/L (38-126); ANION GAP 15 (5-19); ASPARTATE AMINO TRANSFERASE 33 U/L (17-59); BILIRUBIN,DIRECT 0.5 mg/dL (0.0-0.4); BILIRUBIN,TOTAL 1.1 mg/dL (0.2-1.3); BLOOD UREA NITROGEN 20 mg/dL (7-20); CALCIUM 10.1 mg/dL (8.4-10.2); CARBON DIOXIDE 21 mmol/L (22-30); CHLORIDE 104 mmol/L (98-107); CREATINE KINASE 118 U/L (55-170); GLUCOSE 100 mg/dL (75-110); POTASSIUM 4.6 mmol/L (3.6-5.0); TOTAL PROTEIN 7.6 g/dL (6.3-8.2)
[2020-03-09 15:48] LABS: APPEARANCE,URINE SLIGHTLY-CLOUDY; BILIRUBIN,URINE NEGATIVE (NEGATIVE); COLOR,URINE AMBER; GLUCOSE, URINE NEGATIVE (NEGATIVE); KETONES,URINE 80 mg/dL (NEGATIVE); LEUKOCYTE ESTERASE,URINE TRACE (NEGATIVE); NITRITE,URINE NEGATIVE (NEGATIVE); PROTEIN,URINE 100 mg/dL (NEGATIVE); URINE SPECIFIC GRAVITY 1.027
[2020-03-09] MEDS ORDERED: CEFTRIAXONE 1 GM/D5W RTU 1 GM/50 ML RTUPB IV ONE (17:12)
[2020-03-09 18:56] VITALS: BP 129/64
== END 2020-03-09 18:40 | disposition home or self-care (01) ==
LOC: ER 10:51
DX: N39.0 Urinary tract infection, site not specified (principal); J32.1 Chronic frontal sinusitis; J32.2 Chronic ethmoidal sinusitis; J32.0 Chronic maxillary sinusitis; J98.11 Atelectasis; F03.90 Unspecified dementia, unspecified severity, without behavioral disturbance, psychotic disturbance, mood disturbance, and anxiety; R62.7 Adult failure to thrive; I10 Essential (primary) hypertension; I25.2 Old myocardial infarction
CPT/HCPCS: 99285; 96361; 96365; 36415; 87040; 82550; 85025; 85610; 87077; 80053; 81001; 84484; 87150 ×26; 71045; 70450; J7030; J0696; 87186

== ENCOUNTER 2020-03-14 16:45 | Inpatient (IN) | payer MEDICARE, MEDICAID ==
[2020-03-14] MEDS ORDERED: NORMAL SALINE 1000 ML 1,000 ML IV ONE ×2 (17:58→19:09)
--- NOTE | 2020-03-14 18:08 | ER Document Report ---
ED General - General Stated Complaint: SEPSIS Time Seen by Provider: 03/14/20 17:53 Primary Care Provider: CHAD MENDOZA MD [Primary Care Provider] - Follow up as needed Notes: HPI: 69-year-old male who presents with EMS for "sepsis". Supposedly the family called given that the patient had some decreased responsiveness. Temperature rectally was 101.8 according to EMS. No Tylenol was provided. Repeat rectal temperature here is recorded. Supposedly patient has had no vomiting, diarrhea, or cough. Patient was admitted here from February 24 to February 27 with multiple medical problems including a run of atrial fibrillation with RVR, acute kidney injury, metabolic acidosis, noncompliance with schizophrenia medications, pulmonary embolism started on Eliquis, and coronavirus negative. ROS: See HPI Unable to obtain secondary to patient's condition Reviewed vital signs and nursing note as charted by RN. PHYSICAL EXAM: CONSTITUTIONAL: Alert and does follow commands but does not answer questions HEAD: Normocephalic; atraumatic EYES: PERRL; Conjunctivae clear, sclerae non-icteric ENT: Normal nose; no rhinorrhea; dry mucous membranes; pharynx without lesions noted NECK: Supple without meningismus; non-tender; no cervical lymphadenopathy, no masses CARD: Tachycardic and regular; no murmurs; symmetric distal pulses RESP: Normal chest excursion without splinting or tachypnea; breath sounds clear and equal bilaterally; scattered rhonchi without wheezing or rails ABD/GI: Normal bowel sounds; non-distended; soft, non-tender with no obvious grimacing : Patient has left testicular swelling with some minimal perineal and inguinal erythema. No penile discharge BACK: The back appears normal and is non-tender to palpation along the midline spine EXT: Normal ROM in all joints; some small bruising to the right dorsal aspect of the lateral foot; non-tender to palpation; no edema SKIN: Scattered nonspecific skin breakdown lesions to the back with no obvious decubitus ulcer present NEURO: Does move all 4 quadrants TRAVEL OUTSIDE OF THE [place] IN LAST 30 DAYS: No - Related Data Allergies/Adverse Reactions: No Known Allergies Allergy (Verified 03/14/20 18:43) Past Medical History - Social History Smoking Status: Unknown if Ever Smoked Family History: Reviewed & Not Pertinent - Past Medical History Cardiac Medical History: Reports: Hx Atrial Fibrillation, Hx Heart Attack, Hx Hypercholesterolemia, Hx Hypertension Denies: Hx Congestive Heart Failure Endocrine Medical History: Denies: Hx Diabetes Mellitus Type 1, Hx Diabetes Mellitus Type 2, Hx Hypothyroidism Renal/ Medical History: Denies: Hx Peritoneal Dialysis Musculoskeletal Medical History: Reports Hx Arthritis Psychiatric Medical History: Reports: Hx Depression, Hx Schizophrenia Past Surgical History: Reports: Hx Appendectomy, Hx Cholecystectomy - Immunizations Hx Diphtheria, Pertussis, Tetanus Vaccination: Yes Hx Pneumococcal Vaccination: 06/08/11 Physical Exam - Vital signs Vitals: Temp 99.8 F 03/14/20 16:45 Course - Re-evaluation Re-evalutation: 03/14/20 18:17 Given the history and physical examination, septic work-up was ordered including a coronavirus, catheterized urinalysis, x-ray of the chest, ultrasound of the left testicle, blood cultures, lactic acid. We will provide 1 g of Rocephin as we await for the results. 03/14/20 19:08 Reviewing the patient's chart further it appears that the patient had an ultrasound for the hydrocele in the past. We will discontinue this at this t luana. Initial labs and lactic acid as recorded. Patient appears to be dehydrated. Lactic acid repeat will be ordered after the second liter of fluid. 03/14/20 19:10 Fractures no fractures. X-ray of the chest shows no obvious pneumonia. - Vital Signs Vital signs: Temp Pulse Resp BP Pulse Ox 99.8 F 21 H 192/93 H 100 03/14/20 16:45 03/14/20 19:00 03/14/20 19:00 03/14/20 18:01 - Laboratory Result Diagrams: 03/14/20 17:04 03/14/20 17:04 Laboratory results interpreted by me: 03/14/20 03/14/20 03/14/20 17:04 17:04 17:04 Sodium 150.8 H Chloride 109 H BUN 23 H Lactic Acid 2.6 H Calcium 10.9 H Creatine Kinase 451 H Urine Protein Urine Ketones Urine Blood Urine Urobilinogen 03/14/20 19:49 Sodium Chloride BUN Lactic Acid Calcium Creatine Kinase Urine Protein 100 H Urine Ketones 80 H Urine Blood MODERATE H Urine Urobilinogen 2.0 H Discharge - Discharge Clinical Impression: Severe dehydration, Testicular swelling, left, Skin lesions Condition: Fair Disposition: ADMITTED INPATIENT Admitting Provider: [facility] Unit Admitted: Medical Floor Referrals: CHAD MENDOZA MD [Primary Care Provider] - Follow up as needed
[2020-03-14] MEDS ORDERED: CEFTRIAXONE 1 GM/D5W RTU 1 GM/50 ML RTUPB IV ONE (18:18)
[2020-03-14 18:26] LABS: ABSOLUTE BASOPHILS # (AUTO) 0.1 10^3/uL (0.0-0.2); ABSOLUTE EOSINOPHILS # (AUTO) 0.1 10^3/uL (0.0-0.6); ABSOLUTE LYMPHOCYTES (AUTO) 1.6 10^3/uL (0.5-4.7); ABSOLUTE MONOCYTES (AUTO) 0.4 10^3/uL (0.1-1.4); ABSOLUTE NEUT (AUTO) 6.2 10^3/uL (1.7-8.2); BASOPHILS % (AUTO) 0.8 % (0-2); HEMATOCRIT 43.7 % (37.9-51.0); HEMOGLOBIN 14.9 g/dL (13.5-17.0); LYMPHOCYTES % (AUTO) 18.8 % (13-45); MEAN CORPUSCULAR HEMOGLOBIN 30.9 pg (27.0-33.4); MEAN CORPUSCULAR HGB CONC 34.1 g/dL (32.0-36.0); MEAN CORPUSCULAR VOLUME 91 fl (80-97); PLATELET COUNT 333 10^3/uL (150-450); RED BLOOD COUNT 4.82 10^6/uL (4.35-5.55); RED CELL DISTRIBUTION WIDTH 13.6 % (11.5-14.0); SEGMENTED NEUTROPHILS % (AUTO) 74.4 % (42-78); TOTAL CELLS COUNTED % (AUTO) 100 %; WHITE BLOOD COUNT 8.3 10^3/uL (4.0-10.5)
[2020-03-14 18:35] LABS: ALBUMIN 4.3 g/dL (3.5-5.0); ALKALINE PHOSPHATASE 55 U/L (38-126); ANION GAP 19 (5-19); ASPARTATE AMINO TRANSFERASE 37 U/L (17-59); BILIRUBIN,DIRECT 0.3 mg/dL (0.0-0.4); BILIRUBIN,TOTAL 0.9 mg/dL (0.2-1.3); BLOOD UREA NITROGEN 23 mg/dL (7-20); CALCIUM 10.9 mg/dL (8.4-10.2); CARBON DIOXIDE 23 mmol/L (22-30); CHLORIDE 109 mmol/L (98-107); GLUCOSE 99 mg/dL (75-110); POTASSIUM 4.1 mmol/L (3.6-5.0); TOTAL PROTEIN 7.9 g/dL (6.3-8.2)
--- NOTE | 2020-03-14 19:00 | RADIOLOGY REPORT (SQ) ---
EXAM DESCRIPTION: FOOT RIGHT COMPLETE IMAGES COMPLETED DATE/TIME: 03/14/2020 6:35 pm REASON FOR STUDY: 5; brusing COMPARISON: None. EXAM PARAMETERS: NUMBER OF VIEWS: Three views. TECHNIQUE: AP, lateral and oblique radiographic images acquired of the right foot. LIMITATIONS: None. FINDINGS: MINERALIZATION: Normal. BONES: No acute fracture or dislocation. No worrisome bone lesions. JOINTS: No effusion. SOFT TISSUES: No significant soft tissue swelling. No radiopaque foreign body. OTHER: No other significant finding. IMPRESSION: NO FRACTURE. TECHNICAL DOCUMENTATION: JOB ID: [id number] 2010 [employer]- All Rights Reserved Reading location - IP/workstation name: [email or web address]
--- NOTE | 2020-03-14 19:02 | RADIOLOGY REPORT (SQ) ---
EXAM DESCRIPTION: CHEST SINGLE VIEW IMAGES COMPLETED DATE/TIME: 03/14/2020 6:35 pm REASON FOR STUDY: fever COMPARISON: 03/09/2020 TECHNIQUE: Single frontal radiographic view of the chest acquired. NUMBER OF VIEWS: One view. LIMITATIONS: None. FINDINGS: LUNGS AND PLEURA: No pneumothorax. No consolidation or pleural effusion. MEDIASTINUM AND HILAR STRUCTURES: Stable. HEART AND VASCULAR STRUCTURES: Stable. BONES: No acute findings. HARDWARE: None in the chest. OTHER: No other significant finding. IMPRESSION: NO ACUTE FINDINGS. TECHNICAL DOCUMENTATION: JOB ID: [id number] [id number] 2010 [employer]- All Rights Reserved Reading location - IP/workstation name: [email or web address]
[2020-03-14] MEDS ORDERED: ACETAMINOPHEN 650 MG SUPP.RECT PR ONE (19:34)
[2020-03-14 20:06] LABS: APPEARANCE,URINE CLEAR; BILIRUBIN,URINE NEGATIVE (NEGATIVE); COLOR,URINE AMBER; GLUCOSE, URINE NEGATIVE (NEGATIVE); KETONES,URINE 80 mg/dL (NEGATIVE); LEUKOCYTE ESTERASE,URINE NEGATIVE (NEGATIVE); NITRITE,URINE NEGATIVE (NEGATIVE); PROTEIN,URINE 100 mg/dL (NEGATIVE); URINE SPECIFIC GRAVITY 1.031
--- NOTE | 2020-03-14 21:01 | EKG REPORT ---
SEVERITY:- ABNORMAL ECG - SINUS RHYTHM ATRIAL PREMATURE COMPLEX LEFT BUNDLE BRANCH BLOCK : Confirmed by: Zoraida Sinclair MD 14-Mar-2020 21:00:36
[2020-03-14] MEDS ORDERED: ONDANSETRON HCL INJ/PF 4 MG/2 ML SDV IV PRN (21:31)
[2020-03-14] MEDS ORDERED: DEXTROSE 5%-1/2 NORMAL SALINE 1,000 ML IV PRN (21:31)
--- NOTE | 2020-03-14 21:41 | PDOC H&P ---
History of Present Illness Admission Date/PCP: 03/14/20 20:54 CHAD DAVIDSONMARIAMA Patient complains of: altered mental status History of Present Illness: Patient is altered and history was obtained from ER signout, chart review and legal guardian through phone JADA SANCHEZ is a 69 year old male with a history of A. fib, PE, schizophrenia and hypertension who was discharged from hospital a week ago is now brought in by his caregiver stating that patient has been very weak, less responsive, unable to eat or drink. He also has been unable to take all of his medications at home. His guardian states that on discharge from hospital he was able to speak few words but his condition progressively worsened over the past few days. He has not been able to get out of bed, unable to communicate, incontinent to cause urine and stool. His guardian states that in the past he used to do daytime program but after emergence of Covid pandemic patient has not been able to go there. She states that that used to give him some sense of purpose but since June 2019 he is general condition has been spiraling down. This morning she and her caregiver had called his PCP for consideration of possible hospice care. PCP had initiated the process of evaluating him for hospice by arranging and sending a nurse but she has not been unable to assess his condition due to alteration in his mentation. He has no recent history of vomiting, diarrhea, abnormal body movement. Past Medical History Cardiac Medical History: Reports: Atrial Fibrillation, Myocardial Infarction, Hyperlipidema, Hypertension Denies: Congestive Heart Failure Endocrine Medical History: Denies: Diabetes Mellitus Type 1, Diabetes Mellitus Type 2, Hypothyroidism Musculoskeltal Medical History: Reports: Arthritis Psychiatric Medical History: Reports: Depression Past Surgical History Past Surgical History: Reports: Appendectomy, Cholecystectomy Social History Information Source: [facility] Records Smoking Status: Unknown if Ever Smoked Frequency of Alcohol Use: None Hx Recreational Drug Use: Yes Drugs: None Hx Prescription Drug Abuse: No - Advance Directive Resuscitation Status: Do Not Resuscitate Family History Family History: Reviewed & Not Pertinent Parental Family History Reviewed: Yes Children Family History Reviewed: Yes Sibling(s) Family History Reviewed.: Yes Medication/Allergy Home Medications: Lisinopril [Zestril] 10 mg PO Q12 11/01/16 Metoprolol Tartrate [Lopressor 25 mg Tablet] 25 mg PO Q12 11/01/16 Aspirin [Adult Low Dose Aspirin EC] 81 mg PO DAILY 02/25/20 Atorvastatin Calcium [Lipitor 20 mg Tablet] 20 mg PO QHS 02/25/20 Ergocalciferol (Vitamin D2) [Drisdol 50,000 unit (1.25MG) Capsule] 50,000 unit PO JACOB 02/25/20 Acetaminophen [Tylenol 325 mg Tablet] 650 mg PO Q4HP PRN tablet 02/28/20 Apixaban [Eliquis 5 mg Tablet] 5 mg PO Q12 #60 tablet 02/28/20 Clonidine [Catapres-Tts 1 (0.1 mg/24 Hr) Transderm Patch] 1 each TD Fr@10 #4 patch.tdwk 02/28/20 Mirtazapine [Remeron 15 mg Tablet] 15 mg PO QHS #30 tablet 02/28/20 Risperidone [Risperdal 0.25 mg Tablet] 0.25 mg PO BIDP PRN #60 tablet 02/28/20 Valproate Sodium [Depakene Syrup 250 mg/5 ml Udcup] 500 mg PO Q12 #120 udc 02/28/20 Nitrofurantoin Monohyd/M-Cryst [Macrobid 100 mg Capsule] 100 mg PO BID #20 cap 03/09/20 Allergies/Adverse Reactions: No Known Allergies Allergy (Verified 03/14/20 18:43) Review of Systems ROS unobtainable: Due to mental status Physical Exam Vital Signs: Temp Pulse Resp BP Pulse Ox 99.8 F 21 H 192/93 H 100 03/14/20 16:45 03/14/20 19:00 03/14/20 19:00 03/14/20 18:01 Intake & Output 03/13/20 03/14/20 03/15/20 06:59 06:59 06:59 Intake Total 2049 Balance 2049 Weight 56.4 kg Additional comments: GENERAL APPEARANCE: Very lethargic, does not follow command, opens his eyes to verbal stimuli, in no acute distress HEENT: Normocephalic and atraumatic. No scleral icterus. Moist oral mucosa NECK: Supple. No lymphadenopathy or tenderness. No carotid bruit. No JVD CHEST: Symmetric. Nontender to palpation. LUNGS: Clear with good air entry bilaterally. No wheezing or crackles HEART: Regular rate and rhythm with normal S1 and S2. No murmurs, gallops, or r ubs. ABDOMEN: Flat, soft, active bowel sounds, no direct or rebound tenderness. No organomegaly detected. EXTREMITIES: No cyanosis, clubbing, or edema. MUSCULOSKELETAL: No deformity, atrophy or swelling noted PSYCHIATRIC: Difficult to assess due to change in his mental status SKIN: Warm, dry, and well perfused. No lesions or rashes are noted. NEUROLOGIC: Unable to do full neuro exam due to altered mental status but patient is able to move all 4 extremities and no facial deviation or droop noted Has no neck stiffness, kerning and Jane skin signs are negative Results Laboratory Results: 03/14/20 17:04 03/14/20 17:04 03/14/20 03/14/20 03/14/20 17:04 17:04 17:04 WBC 8.3 RBC 4.82 Hgb 14.9 Hct 43.7 MCV 91 MCH 30.9 MCHC 34.1 RDW 13.6 Plt Count 333 Seg Neutrophils % 74.4 Sodium 150.8 H Potassium 4.1 Chloride 109 H Carbon Dioxide 23 Anion Gap 19 BUN 23 H Creatinine 0.77 Est GFR ( Amer) > 60 Glucose 99 Lactic Acid 2.6 H Calcium 10.9 H Total Bilirubin 0.9 AST 37 Alkaline Phosphatase 55 Total Protein 7.9 Albumin 4.3 Urine Color Urine Appearance Urine pH Ur Specific [place] Urine Protein Urine Glucose (UA) Urine Ketones Urine Blood Urine Nitrite Ur Leukocyte Esterase Urine WBC (Auto) Urine RBC (Auto) 03/14/20 19:49 WBC RBC Hgb Hct MCV MCH MCHC RDW Plt Count Seg Neutrophils % Sodium Potassium Chloride Carbon Dioxide Anion Gap BUN Creatinine Est GFR ( Amer) Glucose Lactic Acid Calcium Total Bilirubin AST Alkaline Phosphatase Total Protein Albumin Urine Color KENDRA Urine Appearance CLEAR Urine pH 6.0 Ur Specific [place] 1.031 Urine Protein 100 H Urine Glucose (UA) NEGATIVE Urine Ketones 80 H Urine Blood MODERATE H Urine Nitrite NEGATIVE Ur Leukocyte Esterase NEGATIVE Urine WBC (Auto) 2 Urine RBC (Auto) 112 03/14/20 03/14/20 17:04 17:04 Creatine Kinase 451 H Troponin I 0.031 Impressions: Chest X-Ray 03/14/20 17:57 IMPRESSION: NO ACUTE FINDINGS. Foot X-Ray 03/14/20 18:09 IMPRESSION: NO FRACTURE. Assessment and Plan - Diagnosis (1) Acute metabolic encephalopathy Is this a current diagnosis for this admission?: Yes Plan: Multifactorial etiology including severe dehydration, hypernatremia Underlying psych issues may be contributing factor Has no leukocytosis, chest x-ray showed no acute findings, UA was negative Meningeal signs including kerning's, Jane skin signs were negative Patient has been unable to eat or take his medication for the past week since d ischarge Has been hydrated with 2 L of normal saline at the ER Will switch him to D5 half-normal saline Swallow eval, and currently on aspiration, seizure, fall precaution Consider psych consult once acute insult improves (2) Hypernatremia Is this a current diagnosis for this admission?: Yes Plan: Likely due to dehydration from poor oral intake Serum sodium was 150.8 on presentation Patient has a free water deficit of 2.6 L Started him on D5 half-normal saline Continue to closely monitor serum sodium level to avoid overcorrection (3) Severe dehydration Is this a current diagnosis for this admission?: Yes Plan: Patient has very dry oral mucosa He has hypernatremia Continue IV hydration as stated above (4) History of atrial fibrillation Is this a current diagnosis for this admission?: Yes Plan: Patient currently in sinus rhythm Rate is well controlled Continue apixaban and metoprolol (5) History of pulmonary embolism Is this a current diagnosis for this admission?: Yes Plan: Currently saturating well in room air Continue apixaban (6) Testicular swelling, left Is this a current diagnosis for this admission?: Yes Plan: Ultrasound on last admission showed left testicular hydrocele We will consider surgical consultation once patient's mental status improves based on goals of care (7) Hypertension Is this a current diagnosis for this admission?: Yes Plan: Continued him on clonidine patch (8) Schizophrenia Qualifiers: Schizophrenia type: paranoid schizophrenia Qualified Code(s): F20.0 - Paranoid schizophrenia Is this a current diagnosis for this admission?: Yes Plan: Patient has been unable to eat or take his medications Was on risperidone, valproic acid and mirtazapine Consider psych consult for medication reconciliation regarding route of administration - Time Time Spent with patient: 35 or more minutes Total Critical Time (Minutes): 40 Medications reviewed and adjusted accordingly: Yes Anticipated Discharge Disposition: Snf Facility Anticipated Discharge Timeframe: within 72 hours - Inpatient Certification Based on my medical assessment, after consideration of the patient's comorbidities, presenting symptoms, or acuity I expect that the services needed warrant INPATIENT care.: Yes I certify that my determination is in accordance with my understanding of Medicare's requirements for reasonable and necessary INPATIENT services [42 CFR 412.3e].: Yes Medical Necessity: Significant Comorbidiites Make Outpatient Treatment Too Risky, Need Close Monitoring Due to Risk of Patient Decompensation, Need For IV Fluids, Need For Continuous Telemetry Monitoring Post Hospital Care: D/C or Transfer Summary
[2020-03-14] MEDS ORDERED: ACETAMINOPHEN 325 MG SUPP.RECT PR ONE (21:42)
[2020-03-14] MEDS ORDERED: CLONIDINE 0.1 MG/24 HR PATCH.TDWK TD ONE (21:43)
[2020-03-14] MEDS: VALPROATE SODIUM SYRUP 250 MG/5 ML UDCUP PO SCH (22:27)
[2020-03-14] MEDS: APIXABAN 5 MG TABLET PO SCH (22:28)
[2020-03-14] MEDS ORDERED: DEXTROSE 50%-WATER 25 GM/50 ML DISP.SYRIN IV PRN ×2 (23:49)
[2020-03-14] MEDS ORDERED: DEXTROSE 40% GEL 15 GM TUBE PO PRN ×2 (23:49)
[2020-03-14] MEDS ORDERED: GLUCAGON,HUMAN RECOMB 1 MG INJ SUBCUT PRN (23:49)
[2020-03-15] MEDS ORDERED: ADENOSINE INJ/PF 6 MG/2 ML SDV IV ONE (04:28)
--- NOTE | 2020-03-15 05:33 | Progress Note ---
Provider Note Provider Note: Sustained ventricular tachycardia I was notified by his nurse who stated that patient was having tachycardia with heart rate around 215 bpm. Patient was nonverbal and less responsive during admission and his status has not changed during this evaluation and he is unable to answer questions. Radial pulse was palpable, blood pressure was 80/35 surveillance system monitor shows wide complex monomorphic tachycardia which is sustained Patient was given bolus of amiodarone which converted his rhythm to sinus rhythm with a heart rate ranging in the 80s which is confirmed by 12-lead EKG following the incident Patient will be continued on amiodarone infusion at 1mg/min rate for now per protocol Ordered cardiac enzymes, BUN, magnesium levels Consider cardiology consult in the morning
[2020-03-15] MEDS: DEXTROSE 5%-WATER 500 ML with AMIODARONE HCL 900 MG IV PRN ×4 (05:35→17:38)
[2020-03-15] MEDS ORDERED: AMIODARONE HCL INJ 150 MG/3 ML VIAL IV ONE ×3 (05:35→06:45)
[2020-03-15 06:11] LABS: HEMATOCRIT 37.3 % (37.9-51.0); MEAN CORPUSCULAR HGB CONC 34.2 g/dL (32.0-36.0); MEAN CORPUSCULAR VOLUME 91 fl (80-97); PLATELET COUNT 216 10^3/uL (150-450); RED BLOOD COUNT 4.12 10^6/uL (4.35-5.55); RED CELL DISTRIBUTION WIDTH 13.5 % (11.5-14.0); WHITE BLOOD COUNT 7.9 10^3/uL (4.0-10.5)
[2020-03-15 06:14] LABS: HEMOGLOBIN 12.7 g/dL (13.5-17.0)
[2020-03-15 06:32] LABS: ALBUMIN 2.8 g/dL (3.5-5.0); ALKALINE PHOSPHATASE 37 U/L (38-126); ANION GAP 11 (5-19); ASPARTATE AMINO TRANSFERASE 29 U/L (17-59); BILIRUBIN,DIRECT 0.2 mg/dL (0.0-0.4); BILIRUBIN,TOTAL 0.9 mg/dL (0.2-1.3); BLOOD UREA NITROGEN 20 mg/dL (7-20); CALCIUM 9.2 mg/dL (8.4-10.2); CARBON DIOXIDE 22 mmol/L (22-30); CHLORIDE 115 mmol/L (98-107); GLUCOSE 111 mg/dL (75-110); POTASSIUM 3.4 mmol/L (3.6-5.0); TOTAL PROTEIN 5.6 g/dL (6.3-8.2)
[2020-03-15] MEDS ORDERED: RINGERS SOLUTION,LACTATED 1,000 ML IV ONE (07:00)
[2020-03-15] MEDS: POTASSI CL 20 MEQ/50 ML RIDER 20 MEQ/50 ML RTUPB IV SCH ×4 (08:54→22:33)
[2020-03-15] MEDS: APIXABAN 5 MG TABLET PO SCH ×2 (09:42→22:47)
[2020-03-15] MEDS: VALPROATE SODIUM SYRUP 250 MG/5 ML UDCUP PO SCH ×2 (09:42→22:47)
[2020-03-15 15:17] LABS: ANION GAP 11 (5-19); BLOOD UREA NITROGEN 18 mg/dL (7-20); CALCIUM 8.9 mg/dL (8.4-10.2); CARBON DIOXIDE 22 mmol/L (22-30); CHLORIDE 114 mmol/L (98-107); GLUCOSE 104 mg/dL (75-110); POTASSIUM 3.6 mmol/L (3.6-5.0)
[2020-03-15] MEDS ORDERED: DEXTROSE 5%-WATER 1000 ML 1,000 ML IV PRN (16:53)
--- NOTE | 2020-03-15 17:01 | PDOC PROGRESS REPORT ---
Subjective Date:: 03/15/20 Subjective:: not talking Reason For Visit: ACUTE METABOLIC ENCEPHALOPATHY HYPERNATREMIA Physical Exam Vital Signs: Temp Pulse Resp BP Pulse Ox 97.9 F 63 25 H 129/66 H 97 03/15/20 07:08 03/15/20 16:00 03/15/20 07:08 03/15/20 16:00 03/15/20 07:08 Intake & Output 03/14/20 03/15/20 03/16/20 06:59 06:59 06:59 Intake Total 2049 252 Balance 2049 252 Weight 67.3 kg General appearance: PRESENT: no acute distress, disheveled, thin. ABSENT: cooperative Respiratory exam: PRESENT: clear to auscultation esme, unlabored. ABSENT: tachypnea, wheezes Cardiovascular exam: PRESENT: RRR, +S1, +S2. ABSENT: tachycardia GI/Abdominal exam: PRESENT: soft. ABSENT: distended, firm, rebound, rigid, tenderness Extremities exam: ABSENT: calf tenderness Neurological exam: PRESENT: altered - Nonverbal with eyes closed but certainly aware of his surroundings and responds to even the slightest of noxious stimulus. Moves all his limbs freely. Pushes arm off when touched. Results Laboratory Results: 03/15/20 05:50 03/15/20 14:13 03/14/20 03/14/20 03/14/20 17:04 17:04 17:04 WBC 8.3 RBC 4.82 Hgb 14.9 Hct 43.7 MCV 91 MCH 30.9 MCHC 34.1 RDW 13.6 Plt Count 333 Seg Neutrophils % 74.4 Sodium 150.8 H Potassium 4.1 Chloride 109 H Carbon Dioxide 23 Anion Gap 19 BUN 23 H Creatinine 0.77 Est GFR ( Amer) > 60 Est GFR (Non-Af Amer) Glucose 99 Lactic Acid 2.6 H Calcium 10.9 H Magnesium Total Bilirubin 0.9 AST 37 Alkaline Phosphatase 55 Total Protein 7.9 Albumin 4.3 TSH Urine Color Urine Appearance Urine pH Ur Specific [place] Urine Protein Urine Glucose (UA) Urine Ketones Urine Blood Urine Nitrite Ur Leukocyte Esterase Urine WBC (Auto) Urine RBC (Auto) 03/14/20 03/15/20 03/15/20 19:49 05:50 05:50 WBC RBC Hgb Hct MCV MCH MCHC RDW Plt Count Seg Neutrophils % Sodium Cancelled Potassium Cancelled Chloride Cancelled Carbon Dioxide Cancelled Anion Gap Cancelled BUN Cancelled Creatinine Cancelled Est GFR ( Amer) Cancelled Est GFR (Non-Af Amer) Cancelled Glucose Cancelled Lactic Acid Calcium Cancelled Magnesium 1.6 Total Bilirubin AST Alkaline Phosphatase Total Protein Albumin TSH 1.11 Urine Color KENDRA Urine Appearance CLEAR Urine pH 6.0 Ur Specific [place] 1.031 Urine Protein 100 H Urine Glucose (UA) NEGATIVE Urine Ketones 80 H Urine Blood MODERATE H Urine Nitrite NEGATIVE Ur Leukocyte Esterase NEGATIVE Urine WBC (Auto) 2 Urine RBC (Auto) 112 03/15/20 03/15/20 03/15/20 05:50 05:50 14:13 WBC 7.9 RBC 4.12 L Hgb 12.7 L D Hct 37.3 L MCV 91 MCH 31.0 MCHC 34.2 RDW 13.5 Plt Count 216 Seg Neutrophils % Sodium 147.5 H 146.8 H Potassium 3.4 L 3.6 Chloride 115 H 114 H Carbon Dioxide 22 22 Anion Gap 11 11 BUN 20 18 Creatinine 0.70 0.71 Est GFR ( Amer) > 60 > 60 Est GFR (Non-Af Amer) Glucose 111 H 104 Lactic Acid Calcium 9.2 8.9 Magnesium Total Bilirubin 0.9 AST 29 Alkaline Phosphatase 37 L Total Protein 5.6 L Albumin 2.8 L TSH Urine Color Urine Appearance Urine pH Ur Specific [place] Urine Protein Urine Glucose (UA) Urine Ketones Urine Blood Urine Nitrite Ur Leukocyte Esterase Urine WBC (Auto) Urine RBC (Auto) 03/14/20 03/14/20 03/15/20 17:04 17:04 05:50 Creatine Kinase 451 H Troponin I 0.031 0.047 Impressions: Chest X-Ray 03/14/20 17:57 IMPRESSION: NO ACUTE FINDINGS. Foot X-Ray 03/14/20 18:09 IMPRESSION: NO FRACTURE. Assessment and Plan - Diagnosis (1) Acute metabolic encephalopathy Is this a current diagnosis for this admission?: Yes Plan: From reviewing patient's chart and talking to patient's [place] appointed medical guardian Nisreen Duong, it seems that he has been worked up for this in the past and has become essentially minimally conversational and with selective mutism. I have been informed by her his mental health provider at [facility] thinks that this is due to his psychiatric issues schizophrenia and likely depression. However he is withdrawn state needs to recurrent problems with excessive weakness, dehydration and starvation. (2) Wide-complex tachycardia Is this a current diagnosis for this admission?: Yes Plan: Noted that patient went into wide-complex tachycardia overnight. I have not found any EKG done at the time of the event but I did review the strips and he does have irregular pattern of wide-complex tachycardia. I suspect this may been his atrial fibrillation but with aberrancy but cannot differentiate this from true sustained VTach. I will leave him on amiodarone and he should complete his 18 hours by tomorrow undercoat sprayer. Seems to have converted. Dr. Pat will be on-call tomorrow so I will put in a consult. Keep on telemetry (3) History of pulmonary embolism Is this a current diagnosis for this admission?: Yes Plan: Continue Eliquis (4) Hypernatremia Is this a current diagnosis for this admission?: Yes Plan: Secondary to dehydration. Repeat BMP showing improvement. Will convert to D5W. Most recent calculated free water deficit is 800 cc. Check BMP in the morning. (5) Severe dehydration Is this a current diagnosis for this admission?: Yes Plan: Plan as above (6) Starvation ketoacidosis Is this a current diagnosis for this admission?: Yes (7) Schizophrenia Qualifiers: Schizophrenia type: paranoid schizophrenia Qualified Code(s): F20.0 - Paranoid schizophrenia Is this a current diagnosis for this admission?: Yes Plan: I have reviewed the psych notes from earlier this month and have resumed his psych meds. His psych issues seem to be a major barrier to his wellbeing. (8) Advanced care planning/counseling discussion Is this a current diagnosis for this admission?: Yes Plan: I was informed that hospice has been consulted for patient as outpatient. I had a conversation with and patient's [facility] appointed medical guardian Ki Duong, and it seems that they reached out to [facility] to get hospice services initiated because they have been having ongoing problems with getting patient to eat or drink anything. They were informed by [facility] that a confirmed diagnosis needs to be established for hospice. It seems patient's main problem is poorly controlled schizophrenia and depression have led him to a very withdrawn state where he refuses to eat and becomes recu rrently dehydrated, weak with evidence of starvation ketosis. I have reached out to process planner find out if [place] thinks that these issues are emanating from his psychiatric disorder constitute appropriate diagnoses for hospice. I also confirmed with Mrs. Duong that patient is DNR/DNI and that they do not want PEG tube or TPN for artificial nutrition and are only okay with IV fluids. 30mins of discussion (9) Paroxysmal atrial fibrillation Is this a current diagnosis for this admission?: Yes Plan: Continue Lopressor. On apixaban as well. Now on amnio drip. (10) Encounter for laboratory testing for COVID-19 virus Is this a current diagnosis for this admission?: Yes Plan: Notably a covid test is pending - Time Time Spent with patient: 25-34 minutes Anticipated Discharge Disposition: home vHosp Anticipated Discharge Timeframe: within 36 hours
[2020-03-15] MEDS ORDERED: RISPERIDONE 0.25 MG TABLET PO PRN (17:39)
--- NOTE | 2020-03-15 19:01 | EKG REPORT ---
SEVERITY:- ABNORMAL ECG - SINUS RHYTHM PROBABLE LVH WITH SECONDARY REPOL ABNRM : Confirmed by: Zoraida Sinclair MD 15-Mar-2020 18:59:51
[2020-03-15] MEDS: ATORVASTATIN CALCIUM 20 MG TABLET PO SCH (22:47)
[2020-03-15] MEDS: LISINOPRIL 10 MG TABLET PO SCH (22:48)
[2020-03-15] MEDS: METOPROLOL TARTRATE 25 MG TABLET PO SCH (22:48)
[2020-03-15] MEDS: MIRTAZAPINE 15 MG TABLET PO SCH (22:48)
[2020-03-15] MEDS: MAGNESIUM SULFATE/D5W 1 GM/100 ML RTUPB IV SCH ×2 (23:26→23:43)
[2020-03-16] MEDS ORDERED: MAGNESIUM SULFATE/D5W 1 GM/100 ML RTUPB IV SCH (03:00)
[2020-03-16] MEDS: MAGNESIUM SULFATE/D5W 1 GM/100 ML RTUPB IV SCH (04:09)
--- NOTE | 2020-03-16 09:41 | PDOC CONSULTATION ---
Consultation Consult Date: 03/16/20 Attending physician:: BENNETT PAZ Provider Consulted: SADI FOLEY Consult reason:: Tachycardia History of Present Illness Admission Date/PCP: 03/14/20 20:54 CHAD MENDOZA Patient complains of: Patient is nonverbal. Consult is for wide-complex tachycardia History of Present Illness: JADA SANCHEZ is a 69 year old male With the following active problems 1. Paranoid schizophrenia 2. Failure to thrive 3. Atrial fibrillation 4. Systemic anticoagulation 5. Systemic hypertension Patient is nonverbal and curled up in bed. It is apparent from review of the chart that he has paranoid schizophrenia and is not doing well from an overall mental standpoint. He has become withdrawn and mute. He is not eating. At the time of my evaluation he is curled up in bed and is unresponsive to verbal or tactile stimuli.Patient has progressively declined. He is unable to communicate and is incontinent by records. Per chart review it appears that patient also has a history of atrial fibrillation and has been maintained on systemic anticoagulation. He is also reported of hypertension. On 15 March 2020 at 4:20 AM or thereabouts patient had an episode of wide-complex tachycardia with heart rate approximately 215 bpm. Patient was poorly responsive during this episode and was hypotensive at 80/35 mmHg. He was started on an intravenous bolus of amiodarone which converted his rhythm to sinus. He has been maintained on amiodarone per protocol. No more recurrence of the rhythm is reported. Review of systems cannot be obtained as the patient is nonverbal and withdrawn. Surgical history cannot be obtained Family history cannot be obtained. Past Medical History Cardiac Medical History: Reports: Atrial Fibrillation, Myocardial Infarction, Hyperlipidema, Hypertension Denies: Congestive Heart Failure Endocrine Medical History: Denies: Diabetes Mellitus Type 1, Diabetes Mellitus Type 2, Hypothyroidism Musculoskeltal Medical History: Reports: Arthritis Psychiatric Medical History: Reports: Depression Past Surgical History Past Surgical History: Reports: Appendectomy, Cholecystectomy Social History Smoking Status: Unknown if Ever Smoked Frequency of Alcohol Use: None Hx Recreational Drug Use: Yes Drugs: None Hx Prescription Drug Abuse: No - Advance Directive Resuscitation Status: Do Not Resuscitate Family History Family History: Reviewed & Not Pertinent Parental Family History Reviewed: No - Unable to obtain Children Family History Reviewed: NA Sibling(s) Family History Reviewed.: NA Medication/Allergy Home Medications: Lisinopril [Zestril] 10 mg PO Q12 11/01/16 Metoprolol Tartrate [Lopressor 25 mg Tablet] 25 mg PO Q12 11/01/16 Atorvastatin Calcium [Lipitor 20 mg Tablet] 20 mg PO QHS 02/25/20 Apixaban [Eliquis 5 mg Tablet] 5 mg PO Q12 #60 tablet 02/28/20 Clonidine [Catapres-Tts 1 (0.1 mg/24 Hr) Transderm Patch] 1 each TD Fr@10 #4 patch.tdwk 02/28/20 Mirtazapine [Remeron 15 mg Tablet] 15 mg PO QHS #30 tablet 02/28/20 Risperidone [Risperdal 0.25 mg Tablet] 0.25 mg PO BIDP PRN #60 tablet 02/28/20 Valproate Sodium [Depakene Syrup 250 mg/5 ml Udcup] 500 mg PO Q12 #120 udc 02/27 Nitrofurantoin Monohyd/M-Cryst [Macrobid 100 mg Capsule] 100 mg PO BID #20 cap 03/09/20 Benztropine Mesylate [Cogentin 1 mg Tablet] 1 tab PO DAILY 03/15/20 Divalproex Sodium [Depakote ER 500 mg Tab.sr] 500 mg PO Q12 03/15/20 Hydroxyzine HCl [Atarax 10 mg Tablet] 10 mg PO QID 03/15/20 Lorazepam 0.5 mg PO ASDIR PRN 03/15/20 Mirtazapine 15 mg PO DAILY 03/15/20 Olanzapine 20 mg PO DAILY 03/15/20 Risperidone [Risperdal M-Tab 0.5 mg Odt Tablet] 0.25 mg PO DAILY 03/15/20 Allergies/Adverse Reactions: No Known Allergies Allergy (Verified 03/14/20 18:43) Review of Systems ROS unobtainable: Due to mental status Physical Exam Vital Signs: Temp Pulse Resp BP Pulse Ox 97.9 F 67 25 H 148/62 H 99 03/15/20 07:08 03/16/20 04:00 03/15/20 07:08 03/16/20 04:00 03/16/20 00:30 Intake & Output 03/15/20 03/16/20 03/17/20 06:59 06:59 06:59 Intake Total 2049 530 Balance 2049 530 Weight 67.3 kg 69.9 kg General appearance: PRESENT: no acute distress, other - Withdrawn, cold up in position. Head exam: PRESENT: atraumatic, normocephalic Eye exam: PRESENT: conjunctiva pale Respiratory exam: PRESENT: clear to auscultation esme, symmetrical, unlabored Cardiovascular exam: PRESENT: RRR, +S1, +S2 Pulses: PRESENT: normal radial pulses GI/Abdominal exam: PRESENT: soft Rectal exam: PRESENT: deferred Neurological exam: PRESENT: altered, other - Withdrawn and noninteractive Skin exam: PRESENT: dry, intact Results Laboratory Results: 03/15/20 05:50 03/15/20 14:13 03/15/20 14:13 Sodium 146.8 H Potassium 3.6 Chloride 114 H Carbon Dioxide 22 Anion Gap 11 BUN 18 Creatinine 0.71 Est GFR ( Amer) > 60 Glucose 104 Calcium 8.9 03/14/20 17:04 Blood Blood Culture (PCR) - Final Staphylococcus Species 03/14/20 03/14/20 03/15/20 17:04 17:04 05:50 Creatine Kinase 451 H Troponin I 0.031 0.047 03/15/20 03/15/20 14:13 20:00 Creatine Kinase Troponin I 0.095 0.082 EKG Comments: Twelve-lead EKG 03/15/2020 4:20 AM Wide-complex tachycardia at 217 bpm. Differential diagnosis includes ventricular tachycardia versus supraventricular tachycardia with aberrant conduction. No twelve-lead EKG of this rhythm is available for interpretation. Lead EKG 03/14/2020. Independently viewed by me. Sinus rhythm, PAC, IVCD, QTC is 528 ms. Twelve-lead EKG 03/15/2020 4:42 AM. Independently viewed by me Sinus rhythm, 86 bpm, left ventricular hypertrophy with repolarization abnormality, QTC is 450 ms, lateral ischemia cannot be excluded. Independently viewed by me Potassium 3.6 Magnesium 1.6 0 creatinine 0.71 Troponin 0 0.082, 0.095 Chest x-ray 03/14/2020 No acute findings. Impressions: Chest X-Ray 03/14/20 17:57 IMPRESSION: NO ACUTE FINDINGS. Foot X-Ray 03/14/20 18:09 IMPRESSION: NO FRACTURE. Assessment & Plan - Diagnosis (1) Schizophrenia Qualifiers: Schizophrenia type: paranoid schizophrenia Qualified Code(s): F20.0 - Paranoid schizophrenia Is this a current diagnosis for this admission?: Yes Plan: Schizophrenia. Probably advanced. Patient is withdrawn and not able to interact CODE STATUS and plans for hospice noted. (2) Wide-complex tachycardia Is this a current diagnosis for this admission?: Yes Plan: Episode of wide-complex tachycardia. EKG prior to the episode of tachycardia demonstrate some QT prolongation. Patient also was hypomagnesemic on the date of the episode and also marginally hypokalemic. Magnesium was 1.6 and potassium was 3.6. It is possible that the patient had an episode of ventricular tachycardia which was provoked in the setting of QT prolongation as well as electrolyte abnormality albeit mild. It is also possible that the arrhythmia was supraventricular tachycardia with aberrancy. Neither event given present condition of the patient with starvation ketosis and failure to thrive I suspect that supportive care is ideal for this patient Would recommend collecting electrolyte abnormalities if feasible Would recommend discontinuing amiodarone Avoid QT prolonging medications if possible. Given advanced nature of schizophrenia and failure to thrive would not suggest further work-up including echocardiogram. Date of last obtained is unlikely to have an impact on the patient's treatment given other medical issues that are ongoing. (3) Starvation ketoacidosis Is this a current diagnosis for this admission?: Yes Plan: Starvation ketosis probably. Is not eating Goals of care to be defined
[2020-03-16] MEDS ORDERED: RISPERIDONE 0.5 MG TAB.RAPDIS PO SCH (10:00)
[2020-03-16] MEDS: BENZTROPINE MESYLATE 1 MG TABLET PO SCH (10:45)
[2020-03-16] MEDS: VALPROATE SODIUM SYRUP 250 MG/5 ML UDCUP PO SCH ×2 (10:46→21:51)
[2020-03-16] MEDS: APIXABAN 5 MG TABLET PO SCH ×2 (10:46→21:51)
[2020-03-16] MEDS: LISINOPRIL 10 MG TABLET PO SCH ×2 (10:46→21:51)
[2020-03-16] MEDS: METOPROLOL TARTRATE 25 MG TABLET PO SCH ×2 (10:46→21:51)
--- NOTE | 2020-03-16 16:20 | PDOC PROGRESS REPORT ---
Subjective Date:: 03/16/20 Subjective:: Patient did not interact during this encounter. Appreciate cardiology input. Reason For Visit: ACUTE METABOLIC ENCEPHALOPATHY HYPERNATREMIA Physical Exam Vital Signs: Temp Pulse Resp BP Pulse Ox 97.9 F 68 25 H 148/70 H 99 03/16/20 10:00 03/16/20 15:00 03/15/20 07:08 03/16/20 15:00 03/16/20 15:00 Intake & Output 03/15/20 03/16/20 03/17/20 06:59 06:59 06:59 Intake Total 2049 530 100 Balance 2049 530 100 Weight 67.3 kg 69.9 kg General appearance: PRESENT: thin. ABSENT: cooperative - Did not open eyes. No interaction. Head exam: PRESENT: atraumatic, normocephalic Respiratory exam: PRESENT: rales - Right side, symmetrical, unlabored. ABSENT: accessory muscle use, prolonged expiratory phas, rhonchi, tachypnea, wheezes Cardiovascular exam: PRESENT: RRR, +S1, +S2. ABSENT: bradycardia, diastolic murmur, irregular rhythm, systolic murmur, tachycardia GI/Abdominal exam: PRESENT: hypoactive bowel sounds, soft. ABSENT: distended, guarding, tenderness Rectal exam: PRESENT: deferred Extremities exam: ABSENT: pedal edema Musculoskeletal exam: PRESENT: normal inspection. ABSENT: deformity, dislocation Neurological exam: ABSENT: awake Results Laboratory Results: 03/15/20 05:50 03/15/20 14:13 03/14/20 17:04 Blood Blood Culture (PCR) - Final Staphylococcus Species 03/14/20 03/14/20 03/15/20 17:04 17:04 05:50 Creatine Kinase 451 H Troponin I 0.031 0.047 03/15/20 03/15/20 14:13 20:00 Creatine Kinase Troponin I 0.095 0.082 Impressions: Chest X-Ray 03/14/20 17:57 IMPRESSION: NO ACUTE FINDINGS. Foot X-Ray 03/14/20 18:09 IMPRESSION: NO FRACTURE. Assessment and Plan - Diagnosis (1) Acute metabolic encephalopathy Is this a current diagnosis for this admission?: Yes Plan: From reviewing patient's chart and talking to patient's [facility] appointed medical guardian Nisreen Duong, it seems that he has been worked up for this in the [facility] and has become essentially minimally conversational and with selective mutism. I have been informed by her his mental health provider at [facility] thinks that this is due to his psychiatric issues schizophrenia and likely depression. However he is withdrawn state needs to recurrent problems with excessive weakness, dehydration and starvation. 03/16/2020-staff reports he pulled out all of his IVs. He has been noncompliant with medications. He has exhibited very poor intake. At this point there is concern for safe swallow with his level of consciousness elective or otherwise. (2) Wide-complex tachycardia Is this a current diagnosis for this admission?: Yes Plan: Noted that patient went into wide-complex tachycardia overnight. I have not found any EKG done at the time of the event but I did review the strips and he does have irregular pattern of wide-complex tachycardia. I suspect this may been his atrial fibrillation but with aberrancy but cannot differentiate this from true sustained VTach. 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 Seems to have converted. Dr. Pat will be on-call tomorrow so I will put in a consult. Keep on telemetry 03/16/2020-appreciate cardiology input. Will discontinue amiodarone. Continue to monitor on telemetry. (3) History of pulmonary embolism Is this a current diagnosis for this admission?: Yes Plan: Continue Eliquis 03/16/2020-if patient refuses to take oral medications consider therapeutic Lovenox however patient is reasonable candidate for hospice level care (4) Hypernatremia Is this a current diagnosis for this admission?: Yes Plan: Secondary to dehydration. Repeat BMP showing improvement. Will convert to D5W. Most recent calculated free water deficit is 800 cc. Check BMP in the morning. 03/16/2020-continue IV fluids if the patient will leave his IV in place. Angella ent is not drinking fluids. (5) Severe dehydration Is this a current diagnosis for this admission?: Yes Plan: Plan as above 03/16/2020-difficult to treat if patient will not leave IVs alone. Restraints I think would only worsen the situation. Considering hospice. (6) Starvation ketoacidosis Is this a current diagnosis for this admission?: Yes Plan: 03/16/2020-continue to monitor. If patient becomes more interactive then encourage p.o. intake. (7) Paroxysmal atrial fibrillation Is this a current diagnosis for this admission?: Yes Plan: Continue Lopressor. On apixaban as well. Now on amnio drip. 03/16/2020-amiodarone discontinued. Patient not very cooperative with oral medications. (8) Schizophrenia Qualifiers: Schizophrenia type: paranoid schizophrenia Qualified Code(s): F20.0 - Paranoid schizophrenia Is this a current diagnosis for this admission?: Yes Plan: I have reviewed the psych notes from earlier this month and have resumed his psych meds. His psych issues seem to be a major barrier to his wellbeing. (9) Advanced care planning/counseling discussion Is this a current diagnosis for this admission?: Yes Plan: I was informed that hospice has been consulted for patient as outpatient. I had a conversation with and patient's [facility] appointed medical guardian Joel Duong, and it seems that they reached out to [facility] to get hospice services initiated because they have been having ongoing problems with getting patient to eat or drink anything. They were informed by [facility] that a confirmed diagnosis needs to be established for hospice. It seems patient's main problem is poorly controlled schizophrenia and depression have led him to a very withdrawn state where he refuses to eat and becomes recurrently dehydrated, weak with evidence of starvation ketosis. I have reached out to kit planner find out if [facility] thinks that these issues are emanating from his psychiatric disorder constitute appropriate diagno ses for hospice. I also confirmed with Mrs. Duong that patient is DNR/DNI and that they do not want PEG tube or TPN for artificial nutrition and are only okay with IV fluids. 30mins of discussion (10) Encounter for laboratory testing for COVID-19 virus Is this a current diagnosis for this admission?: Yes Plan: Notably a covid test is pending 03/16/2020-Covid serology is negative. - Plan Summary Summary: Difficult situation. Patient is noninteractive. When he is awake he pulls his IVs. He does not accept oral medications. He is not eating and drinking. Combination of malnutrition due to very poor appetite and limited intake as well as noncompliance with psychiatric medications makes active treatment very difficult. The patient would be a reasonable hospice candidate. - Time Time Spent with patient: 15-24 minutes Medications reviewed and adjusted accordingly: Yes Anticipated Discharge Disposition: Hospice Center Anticipated Discharge Timeframe: Unknown
[2020-03-16] MEDS: ATORVASTATIN CALCIUM 20 MG TABLET PO SCH (21:51)
[2020-03-16] MEDS: MIRTAZAPINE 15 MG TABLET PO SCH (21:52)
[2020-03-16] MEDS: RISPERIDONE 0.5 MG TAB.RAPDIS PO SCH (22:57)
[2020-03-17] MEDS: BENZTROPINE MESYLATE 1 MG TABLET PO SCH (11:51)
[2020-03-17] MEDS: RISPERIDONE 0.5 MG TAB.RAPDIS PO SCH ×2 (11:52→22:31)
[2020-03-17] MEDS: APIXABAN 5 MG TABLET PO SCH ×2 (11:52→22:30)
[2020-03-17] MEDS: METOPROLOL TARTRATE 25 MG TABLET PO SCH ×2 (11:52→22:30)
[2020-03-17] MEDS: VALPROATE SODIUM SYRUP 250 MG/5 ML UDCUP PO SCH ×2 (11:52→22:30)
[2020-03-17] MEDS: LISINOPRIL 10 MG TABLET PO SCH ×2 (11:52→22:31)
--- NOTE | 2020-03-17 14:14 | PDOC PROGRESS REPORT ---
Subjective Date:: 03/17/20 Subjective:: Patient's eyes are open today. He briefly looked at me. He still declined to a nswer any questions or make any effort to communicate nonverbally. Reason For Visit: WIDE COMPLEX TACHYCARDIA,SCHIZOPHRENIA Physical Exam Vital Signs: Temp Pulse Resp BP Pulse Ox 98.3 F 68 16 146/60 H 99 03/17/20 10:00 03/17/20 08:51 03/17/20 08:51 03/17/20 08:51 03/17/20 08:51 Intake & Output 03/16/20 03/17/20 03/18/20 06:59 06:59 06:59 Intake Total 530 100 Balance 530 100 Weight 69.9 kg 67.6 kg General appearance: PRESENT: no acute distress, other - Patient is in bed with eyes open. He does not maintain eye contact. He was completely nonverbal and did not answer any of my questions.. ABSENT: cooperative Head exam: PRESENT: atraumatic, normocephalic Respiratory exam: PRESENT: clear to auscultation esme, symmetrical, unlabored. ABSENT: rales, rhonchi, tachypnea, wheezes Cardiovascular exam: PRESENT: RRR, +S1, +S2. ABSENT: bradycardia, diastolic mu rmur, irregular rhythm, systolic murmur, tachycardia GI/Abdominal exam: PRESENT: hypoactive bowel sounds, soft. ABSENT: distended, guarding, tenderness Rectal exam: PRESENT: deferred Extremities exam: ABSENT: pedal edema Musculoskeletal exam: ABSENT: ambulatory - Does not participate Neurological exam: PRESENT: alert, awake, other - Nonverbal so difficult to assess orientation Psychiatric exam: PRESENT: flat affect. ABSENT: agitated, anxious Results Laboratory Results: 03/15/20 05:50 03/15/20 14:13 03/14/20 17:04 Blood Blood Culture (PCR) - Final Staphylococcus Species 03/14/20 17:04 Blood Blood Culture - Final Staphylococcus Epidermidis 03/14/20 19:49 Catheterized Urine Urine Culture - Final Staph Coagulase Negative 03/14/20 03/14/20 03/15/20 17:04 17:04 05:50 Creatine Kinase 451 H Troponin I 0.031 0.047 03/15/20 03/15/20 14:13 20:00 Creatine Kinase Troponin I 0.095 0.082 Impressions: Chest X-Ray 03/14/20 17:57 IMPRESSION: NO ACUTE FINDINGS. Foot X-Ray 03/14/20 18:09 IMPRESSION: NO FRACTURE. Assessment and Plan - Diagnosis (1) Acute metabolic encephalopathy Is this a current diagnosis for this admission?: Yes (2) Wide-complex tachycardia Is this a current diagnosis for this admission?: Yes (3) History of pulmonary embolism Is this a current diagnosis for this admission?: Yes (4) Hypernatremia Is this a current diagnosis for this admission?: Yes (5) Severe dehydration Is this a current diagnosis for this admission?: Yes (6) Starvation ketoacidosis Is this a current diagnosis for this admission?: Yes (7) Paroxysmal atrial fibrillation Is this a current diagnosis for this admission?: Yes (8) Schizophrenia Qualifiers: Schizophrenia type: paranoid schizophrenia Qualified Code(s): F20.0 - Paranoid schizophrenia Is this a current diagnosis for this admission?: Yes (9) Advanced care planning/counseling discussion Is this a current diagnosis for this admission?: Yes (10) Encounter for laboratory testing for COVID-19 virus Is this a current diagnosis for this admission?: Yes (11) Protein calorie malnutrition Qualifiers: Protein-calorie malnutrition severity: moderate Qualified Code(s): E44.0 - Moderate protein-calorie malnutrition Is this a current diagnosis for this admission?: Yes - Plan Summary Summary: Difficult situation. Patient is noninteractive. When he is awake he pulls his IVs. He does not accept oral medications. He is not eating and drinking. Combination of malnutrition due to very poor appetite and limited intake as well as noncompliance with psychiatric medications makes active treatment very di fficult. The patient would be a reasonable hospice candidate. 03/17/2020 The patient continues to refuse medications. He has not eaten. He does not drink fluids. Last laboratory studies were March 15. Sodium and chloride were increasing at that time. It is difficult to maintain IV access. Had a long discussion with his stepdaughter Melissa Godinez. The patient has shut down prior to the admission. He has not been taking his medications. He is not eating or drinking. The bed scale shows a weight gain which quite frankly is impossible and I do not believe the weights that are recorded. Talking to his stepdaughter this evidently has been ongoing for almost 2 weeks. He clearly is malnourished and does not show any intention of making an effort to eat, drink or take his medications. It is difficult to establish the degree of malnourishment without accurate weights. He is not eating anything or drinking anything which certainly is at least moderate. At this point establishing a hospice care plan makes the most sense. He is only going to get weaker. He will only be able to last so long without any nutrition. I did speak to his stepdaughter Melissa Godinez and they would need daily help at home to take care of him appropriately. It is not likely that this will be available in about private pay. He might be more appropriate with a inpatient hospice setting or hospice care at a skilled facility. I have discussed this with discharge planning as well. - Time Time Spent with patient: 25-34 minutes Medications reviewed and adjusted accordingly: Yes Anticipated Discharge Disposition: See above Anticipated Discharge Timeframe: Unknown
[2020-03-17] MEDS: ATORVASTATIN CALCIUM 20 MG TABLET PO SCH (22:30)
[2020-03-17] MEDS: MIRTAZAPINE 15 MG TABLET PO SCH (22:31)
[2020-03-18] MEDS: BENZTROPINE MESYLATE 1 MG TABLET PO SCH (09:58)
[2020-03-18] MEDS: VALPROATE SODIUM SYRUP 250 MG/5 ML UDCUP PO SCH ×2 (09:58→21:03)
[2020-03-18] MEDS: APIXABAN 5 MG TABLET PO SCH ×2 (09:58→21:03)
[2020-03-18] MEDS: LISINOPRIL 10 MG TABLET PO SCH ×2 (09:58→21:05)
[2020-03-18] MEDS: METOPROLOL TARTRATE 25 MG TABLET PO SCH ×2 (09:58→21:05)
[2020-03-18] MEDS: RISPERIDONE 0.5 MG TAB.RAPDIS PO SCH ×2 (10:02→21:06)
--- NOTE | 2020-03-18 15:48 | PDOC PROGRESS REPORT ---
Subjective Date:: 03/18/20 Subjective:: Patient did not open his eyes. No participation in the encounter. Did not atte mpt to answer any questions. Reason For Visit: WIDE COMPLEX TACHYCARDIA,SCHIZOPHRENIA Physical Exam Vital Signs: Temp Pulse Resp BP Pulse Ox 98.6 F 71 17 139/54 H 97 03/18/20 10:48 03/18/20 10:48 03/18/20 10:48 03/18/20 10:48 03/18/20 10:48 Intake & Output 03/17/20 03/18/20 03/19/20 06:59 06:59 06:59 Intake Total 100 1000 0 Output Total 0 Balance 100 1000 0 Weight 67.6 kg 67.6 kg General appearance: ABSENT: cooperative - As above did not open eyes, did not attempt to answer questions. No interaction during this encounter Head exam: PRESENT: atraumatic, normocephalic Respiratory exam: PRESENT: clear to auscultation esme - Anteriorly, symmetrical, unlabored. ABSENT: rales, rhonchi, tachypnea, wheezes Cardiovascular exam: PRESENT: RRR, +S1, +S2. ABSENT: bradycardia, diastolic murmur, irregular rhythm, systolic murmur, tachycardia GI/Abdominal exam: PRESENT: hypoactive bowel sounds, soft. ABSENT: tenderness Neurological exam: PRESENT: awake - Awake but noninteractive Results Laboratory Results: 03/15/20 05:50 03/15/20 14:13 03/14/20 03/14/20 03/15/20 17:04 17:04 05:50 Creatine Kinase 451 H Troponin I 0.031 0.047 03/15/20 03/15/20 14:13 20:00 Creatine Kinase Troponin I 0.095 0.082 Impressions: Chest X-Ray 03/14/20 17:57 IMPRESSION: NO ACUTE FINDINGS. Foot X-Ray 03/14/20 18:09 IMPRESSION: NO FRACTURE. Assessment and Plan - Diagnosis (1) Acute metabolic encephalopathy Is this a current diagnosis for this admission?: Yes (2) Wide-complex tachycardia Is this a current diagnosis for this admission?: Yes (3) History of pulmonary embolism Is this a current diagnosis for this admission?: Yes (4) Hypernatremia Is this a current diagnosis for this admission?: Yes (5) Severe dehydration Is this a current diagnosis for this admission?: Yes (6) Starvation ketoacidosis Is this a current diagnosis for this admission?: Yes (7) Paroxysmal atrial fibrillation Is this a current diagnosis for this admission?: Yes (8) Schizophrenia Qualifiers: Schizophrenia type: paranoid schizophrenia Qualified Code(s): F20.0 - Paranoid schizophrenia Is this a current diagnosis for this admission?: Yes (9) Advanced care planning/counseling discussion Is this a current diagnosis for this admission?: Yes (10) Encounter for laboratory testing for COVID-19 virus Is this a current diagnosis for this admission?: Yes (11) Protein calorie malnutrition Qualifiers: Protein-calorie malnutrition severity: moderate Qualified Code(s): E44.0 - Moderate protein-calorie malnutrition Is this a current diagnosis for this admission?: Yes - Plan Summary Summary: Difficult situation. Patient is noninteractive. When he is awake he pulls his IVs. He does not accept oral medications. He is not eating and drinking. Combination of malnutrition due to very poor appetite and limited intake as well as noncompliance with psychiatric medications makes active treatment very difficult. The patient would be a reasonable hospice candidate. 03/17/2020 The patient continues to refuse medications. He has not eaten. He does not drink fluids. Last laboratory studies were March 15. Sodium and chloride were increasing at that time. It is difficult to maintain IV access. Had a long discussion with his stepdaughter Melissa Godinez. The patient has shut down prior to the admission. He has not been taking his medications. He is not eating or drinking. The bed scale shows a weight gain which quite frankly is impossible and I do not believe the weights that are recorded. Talking to his stepdaughter this evidently has been ongoing for almost 2 weeks. He clearly is malnourished and does not show any intention of making an effort to eat, drink or take his medications. It is difficult to establish the degree of malnour ishment without accurate weights. He is not eating anything or drinking anything which certainly is at least moderate. At this point establishing a hospice care plan makes the most sense. He is only going to get weaker. He will only be able to last so long without any nutrition. I did speak to his stepdaughter Melissa Godinez and they would need daily help at home to take care of him appropriately. It is not likely that this will be available in about private pay. He might be more appropriate with a inpatient hospice setting or hospice care at a skilled facility. I have discussed this with discharge planning as well. 03/18/2020 No change in the patient. No ability to administer medications. Patient does not eat or drink. Still evaluating possible hospice dispositions. We will continue supportive care as best as we can under the current circumstances. - Time Time Spent with patient: Less than 15 minutes Medications reviewed and adjusted accordingly: Yes Anticipated Discharge Disposition: Hospice Center Anticipated Discharge Timeframe: when bed available
[2020-03-18] MEDS: ATORVASTATIN CALCIUM 20 MG TABLET PO SCH (21:03)
[2020-03-18] MEDS: MIRTAZAPINE 15 MG TABLET PO SCH (21:05)
--- NOTE | 2020-03-19 11:57 | PDOC TRANSFER SUMMARY ---
General - Admit/Disc Date/PCP Admission Date/Primary Care Provider: 03/16/20 16:30 CHAD MENDOZA Discharge Date: 03/19/20 - Discharge Diagnosis (1) Acute metabolic encephalopathy Is this a current diagnosis for this admission?: Yes (2) Wide-complex tachycardia Is this a current diagnosis for this admission?: Yes (3) History of pulmonary embolism Is this a current diagnosis for this admission?: Yes (4) Hypernatremia Is this a current diagnosis for this admission?: Yes (5) Severe dehydration Is this a current diagnosis for this admission?: Yes (6) Starvation ketoacidosis Is this a current diagnosis for this admission?: Yes (7) Paroxysmal atrial fibrillation Is this a current diagnosis for this admission?: Yes (8) Schizophrenia Is this a current diagnosis for this admission?: Yes (9) Advanced care planning/counseling discussion Is this a current diagnosis for this admission?: Yes (10) Encounter for laboratory testing for COVID-19 virus Is this a current diagnosis for this admission?: Yes (11) Protein calorie malnutrition Is this a current diagnosis for this admission?: Yes - Additional Information Resuscitation Status: Do Not Resuscitate Discharge Diet: As Tolerated Discharge Activity: Bedrest History of Present Illness Admission Date/PCP: 03/16/20 16:30 CHAD MENDOZA Patient complains of: Patient is altered and history was obtained from ER signout, chart review and legal guardian through phone History of Present Illness: JADA SANCHEZ is a 69 year old male with a history of A. fib, PE, schizophrenia and hypertension who was discharged from hospital a week ago is now brought in by his caregiver stating that patient has been very weak, less responsive, unable to eat or drink. He also has been unable to take all of his medications at home. His guardian states that on discharge from hospital he was able to speak few words but his condition progressively worsened over the past few days. He has not been able to get out of bed, unable to communicate, incontinent to cause urine and stool. His guardian states that in the past he used to do daytime program but after emergence of Covid pandemic patient has not been able to go there. She states that that used to give him some sense of purpose but since June 2019 he is general condition has been spiraling down. This morning she and her caregiver had called his PCP for consideration of possible hospice care. PCP had initiated the process of evaluating him for hospice by arranging and sending a nurse but she has not been unable to assess his condition due to alteration in his mentation. He has no recent history of vomiting, diarrhea, abnormal body movement. Hospital Course Hospital Course: The patient was admitted with altered mental status. He does have a long history of schizophrenia as well and was hypertension, atrial fibrillation and e pisodes of wide-complex tachycardia. Discussions with his stepdaughter revealed that the patient had "shut down" for a week or 2 prior to admission. He would not interact. He would not take his medicines. She reports that he was not eating or drinking. Upon admission to the hospital he persisted in not interacting. He in fact initially would respond to the nurses but eventually pulled out his IVs. He refused medications. For the last 2 to 3 days he did not interact with this provider at all and would not take any medications, eat or drink. He is losing muscle mass. His intake is almost nothing. He is exhibiting protein calorie malnutrition which continues to worsen. This is a very difficult situation. The patient is noninteractive. He has pulled out multiple IVs. He does not accept oral medications. He is not eating and drinking. He has a combination of malnutrition due to very poor appetite and limited intake as well as noncompliance with psychiatric medications and th is makes an active treatment plan impossible to carry out. Psychiatry is familiar with the patient. We have tried to even introduce oral disintegrating tablets put in his mouth to try and break his current state. At this point it is not recoverable. I do not see any change in his status but rather continued decline. 03/17/2020 The patient continues to refuse medications. He has not eaten. He does not drink fluids. Last laboratory studies were March 15. Sodium and chloride were increasing at that time. It is difficult to maintain IV access. Had a long discussion with his stepdaughter Melissa Godinez. The patient has shut down prior to the admission. He has not been taking his medications. He is not eating or drinking. The bed scale shows a weight gain which quite frankly is impossible and I do not believe the weights that are recorded. Talking to his stepdaughter this evidently has been ongoing for almost 2 weeks. He clearly is malnourished and does not show any intention of making an effort to eat atrial fibrillation drink or take his medications. It is difficult to establish the degree of malnourishment without accurate weights. He is not eating anything or drinking anything which certainly is at least moderate. At this point establishing a hospice care plan makes the most sense. He is only going to get weaker. He will only be able to last so long without any nutrition. I did speak to his stepdaughter Melissa Godinez and they would need daily help at home to take care of him appropriately. It is not likely that this will be available in about private pay. He might be more appropriate with a inpatient hospice setting or hospice care at a skilled facility. I have discussed this with discharge planning as well. 03/18/2020 No change in the patient. No ability to administer medications. Patient does not eat or drink. Still evaluating possible hospice dispositions. We will continue supportive care as best as we can under the current circumstances. 03/19/2020 Once again no interaction during my encounter today. He has not taken any oral medications. We have not even been able to utilize a oral disintegrating tablet. For the last several days he has remained moribund in bed. We have made referrals to inpatient hospice services and the patient has been accepted. The plan is to transfer him to inpatient hospice for terminal care. Physical Exam Vital Signs: Temp Pulse Resp BP Pulse Ox 97.4 F 72 14 169/80 H 94 03/19/20 08:01 03/19/20 08:01 03/19/20 08:01 03/19/20 08:01 03/19/20 08:01 Intake & Output 03/18/20 03/19/20 03/20/20 06:59 06:59 06:59 Intake Total 1000 0 Output Total 0 Balance 1000 0 Weight 67.6 kg 68.3 kg General appearance: PRESENT: other - His eyes are open but he does not make eye contact. He does not respond to questions either by verbal response or head nodding. Arms are tight against his chest. Respiratory exam: PRESENT: clear to auscultation esme - Anteriorly. ABSENT: rales, rhonchi, wheezes Cardiovascular exam: PRESENT: RRR, +S1, +S2 GI/Abdominal exam: PRESENT: hypoactive bowel sounds, soft Rectal exam: PRESENT: deferred Musculoskeletal exam: ABSENT: ambulatory Neurological exam: PRESENT: alert, awake, other - Unable to further assess Psychiatric exam: PRESENT: flat affect. ABSENT: agitated, anxious Results Laboratory Results: 03/15/20 05:50 03/15/20 14:13 03/14/20 03/14/20 03/15/20 17:04 17:04 05:50 Creatine Kinase 451 H Troponin I 0.031 0.047 03/15/20 03/15/20 14:13 20:00 Creatine Kinase Troponin I 0.095 0.082 Impressions: Chest X-Ray 03/14/20 17:57 IMPRESSION: NO ACUTE FINDINGS. Foot X-Ray 03/14/20 18:09 IMPRESSION: NO FRACTURE. Transfer Plan - Disposition Transfer Plan: Transferring to inpatient hospice. - Time Spent with Patient Time spent with patient: Greater than 30 Minutes Qualifiers PATIENT BEING DISCHARGED WITH ANY OF THE FOLLOWING DIAGNOSIS: No Plan Discharge Plan: Patient will be transferring to inpatient hospice. As he has refused all medications and meals no medications have been ordered. Time Spent: Greater than 30 Minutes
[2020-03-19] MEDS: BENZTROPINE MESYLATE 1 MG TABLET PO SCH (12:38)
[2020-03-19] MEDS: VALPROATE SODIUM SYRUP 250 MG/5 ML UDCUP PO SCH (12:38)
[2020-03-19] MEDS: METOPROLOL TARTRATE 25 MG TABLET PO SCH (12:39)
[2020-03-19] MEDS: APIXABAN 5 MG TABLET PO SCH (12:39)
[2020-03-19] MEDS: LISINOPRIL 10 MG TABLET PO SCH (12:39)
[2020-03-19] MEDS: RISPERIDONE 0.5 MG TAB.RAPDIS PO SCH (12:39)
[2020-03-19 14:41] VITALS: BP 153/71
[2020-03-20] MEDS ORDERED: CLONIDINE 0.1 MG/24 HR PATCH.TDWK TD SCH (10:00)
== END 2020-03-19 15:30 | disposition hospice, home (50) | DRG 885 ==
LOC: ER 16:45 → INTOOBSV 20:54 → EH 20:54 → 3N 03-15 00:30 → 3S 03-16 13:49 → OBSVTOIN 03-16 16:30 → 4S 03-17 16:45
PROVIDERS: ADMIT Student in an Organized Health Care Education/Training Program; ATTEND Hospitalist
DX: F20.0 Paranoid schizophrenia (principal); G93.41 Metabolic encephalopathy; I47.2 Ventricular tachycardia; E87.0 Hyperosmolality and hypernatremia; E87.2 Acidosis; I47.1 Supraventricular tachycardia; E44.0 Moderate protein-calorie malnutrition; R62.7 Adult failure to thrive; E86.0 Dehydration; Z91.14 Patient's other noncompliance with medication regimen; I48.0 Paroxysmal atrial fibrillation; Z66 Do not resuscitate; R32 Unspecified urinary incontinence; R15.9 Full incontinence of feces; Z51.5 Encounter for palliative care; I10 Essential (primary) hypertension; E78.5 Hyperlipidemia, unspecified; M19.90 Unspecified osteoarthritis, unspecified site; F32.9 Major depressive disorder, single episode, unspecified; E87.6 Hypokalemia; E83.42 Hypomagnesemia; N43.2 Other hydrocele; Z11.59 Encounter for screening for other viral diseases; Z86.711 Personal history of pulmonary embolism; I25.2 Old myocardial infarction
CPT/HCPCS: 36415; 71045; 80053; 81001; 82550; 82962; 83605; 83735; 84443; 84484; 85025; 85027; 87040; 87070; 87077; 87086; 87088; 87150; 87186; 87635; 93005; 93010; 96361; 96365; 99285; C9803; G0378; J0282; J0696; J3475; J3480; J3490; J7030; J7060; J7120